=== PATIENT | male | born 1940 | race Two or more races ===

== ENCOUNTER 2019-03-10 15:47 | Inpatient (IN) | payer OTHER ==
[~2019-03-10] VITALS: Ht 172.7 cm; Wt 74.9 kg
--- NOTE | 2019-03-10 15:47 | NUR ---
ED Nurse Note: Patient brought into ED from home RA 26, per family, patient has been altered since this morning around 0800. BS 26 on scene, D10 250ml was given en route, upon arrival patient's BS 157. per family, patient did not eat or take medication since yesterday. granddaughter at bedside. patient immediately placed on a potline monitor, on a hospital gown.
--- NOTE | 2019-03-10 15:55 | Emergency Room Report ---
History of Present Illness General Chief Complaint: Altered Mental Status Source: Patient, Family Member, EMS Present Illness HPI Patient was brought in by paramedics family had Appreciated that the patient was acting weaker than usual and more lethargic since approximately 8:00 this morning Upon arrival of the paramedics patient's glucose level is found to be at 26 and patient was given dextrose in the field and has responded to become more oriented Family denies any reports of chest pain or vomiting denies any diarrhea patient was reported not to be taking his medications also had decreased oral intake Allergies: Coded Allergies: No Known Allergies (Unverified , 03/10/19) Patient History Limited by: medical condition Reviewed Nursing Documentation: PMH: Agreed; PSxH: Agreed Nursing Documentation-PMH Hx Cardiac Problems: Yes Hx Hypertension: Yes Hx Diabetes: Yes Review of Systems All Other Systems: negative except mentioned in HPI Physical Exam Vital Signs Date Time Temp Pulse Resp B/P (MAP) Pulse Ox O2 Delivery O2 Flow Rate FiO2 03/10/19 15:30 98.6 78 16 175/119 (137) 96 Room Air Sp02 EP Interpretation: reviewed, normal General Appearance: other - Sluggish to respond Head: normocephalic, atraumatic Eyes: bilateral eye PERRL, bilateral eye EOMI ENT: dry mucus membranes Neck: supple Respiratory: no retraction, crackles - Bilaterally Cardiovascular #1: regular rate, rhythm Gastrointestinal: non tender, soft Musculoskeletal: other - No obvious focal deficit Neurologic: other - Patient is awake makes eye contact is verbal with family follows minimal commands Skin: no rash Lymphatic: no adenopathy Procedures Critical Care Time Critical Care Time 70 minutes for multiple re-evaluations initial critical presentation continued encephalopathy and multiple neurological exams not including any procedural time Medical Decision Making Diagnostic Impression: Primary Impression: Acute CHF Additional Impressions: Elevated troponin Encephalopathy Hypoglycemia ER Course Patient is a fairly complex patient with multiple differential to consideration including but not limited to cardiac cardiopulmonary and vascular emergencies Patient has other differential such as neurological neurosurgical, infectious process also entertained Patient CT head does not show any acute process last known well was approximately 8:00 this morning This is well over 6 hours From time of presentation Patient's glucose level was initially very low it has been slowly elevating with dextrose injections Patient's x-ray is also concerning for pulmonary congestion BNP and troponin are elevated EKG does not show ST elevation This is repeated on 2 different occasions Patient was placed on BiPAP And is in critical condition patient does become more responsive with further physical stimuli And at this time is admitted to higher level of care Labs Test 03/10/19 16:12 03/10/19 17:05 03/10/19 17:15 03/10/19 18:45 White Blood Count 6.5 K/UL (4.8-10.8) Red Blood Count 4.85 M/UL (4.70-6.10) Hemoglobin 12.8 G/DL (14.2-18.0) Hematocrit 38.9 % (42.0-52.0) Mean Corpuscular Volume 80 FL (80-99) Mean Corpuscular Hemoglobin 26.3 PG (27.0-31.0) Mean Corpuscular Hemoglobin Concent 32.8 G/DL (32.0-36.0) Red Cell Distribution Width 13.1 % (11.6-14.8) Platelet Count 200 K/UL (150-450) Mean Platelet Volume 8.0 FL (6.5-10.1) Neutrophils (%) (Auto) 80.5 % (45.0-75.0) Lymphocytes (%) (Auto) 12.8 % (20.0-45.0) Monocytes (%) (Auto) 5.9 % (1.0-10.0) Eosinophils (%) (Auto) 0.0 % (0.0-3.0) Basophils (%) (Auto) 0.8 % (0.0-2.0) Sodium Level 139 MMOL/L (136-145) Potassium Level 5.5 MMOL/L (3.5-5.1) Chloride Level 109 MMOL/L (98-107) Carbon Dioxide Level 20 MMOL/L (21-32) Anion Gap 10 mmol/L (5-15) Blood Urea Nitrogen 36 mg/dL (7-18) Creatinine 1.2 MG/DL (0.55-1.30) Estimat Glomerular Filtration Rate mL/min (>60) Glucose Level 54 MG/DL (74-106) Lactic Acid Level 1.20 mmol/L (0.4-2.0) Calcium Level 8.6 MG/DL (8.5-10.1) Phosphorus Level 5.3 MG/DL (2.5-4.9) Magnesium Level 2.1 MG/DL (1.8-2.4) Total Bilirubin 1.0 MG/DL (0.2-1.0) Aspartate Amino Transf (AST/SGOT) 35 U/L (15-37) Alanine Aminotransferase (ALT/SGPT) 24 U/L (12-78) Alkaline Phosphatase 133 U/L (46-116) Total Creatine Kinase 97 U/L (26-308) Creatine Kinase MB 4.0 NG/ML (0.0-3.6) Creatine Kinase MB Relative Index 4.1 Troponin I 0.257 ng/mL (0.000-0.056) Pro-B-Type Natriuretic Peptide 7769 pg/mL (0-125) Total Protein 6.7 G/DL (6.4-8.2) Albumin 2.7 G/DL (3.4-5.0) Globulin 4.0 g/dL Albumin/Globulin Ratio 0.7 (1.0-2.7) Lipase 42 U/L (73-393) Serum Alcohol 1 mg/dL Prothrombin Time 12.6 SEC (9.30-11.50) Prothromb Time International Ratio 1.2 (0.9-1.1) Activated Partial Thromboplast Time 31 SEC (23-33) Urine Color Yellow Urine Appearance Clear Urine pH 5 (4.5-8.0) Urine Specific [place] 1.015 (1.005-1.035) Urine Protein 2+ (NEGATIVE) Urine Glucose (UA) Negative (NEGATIVE) Urine Ketones Negative (NEGATIVE) Urine Blood 2+ (NEGATIVE) Urine Nitrite Negative (NEGATIVE) Urine Bilirubin Negative (NEGATIVE) Urine Urobilinogen Normal MG/DL (0.0-1.0) Urine Leukocyte Esterase Negative (NEGATIVE) Urine RBC 2-4 /HPF (0 - 0) Urine WBC 0-2 /HPF (0 - 0) Urine Squamous Epithelial Cells None /LPF (NONE/OCC) Urine Amorphous Sediment Few /LPF (NONE) Urine Bacteria Few /HPF (NONE) Ammonia 13 umol/L (11-32) Arterial Blood pH 7.315 (7.350-7.450) Arterial Blood Partial Pressure CO2 37.4 mmHg (35.0-45.0) Arterial Blood Partial Pressure O2 49.4 mmHg (75.0-100.0) Arterial Blood HCO3 18.6 mmol/L (22.0-26.0) Arterial Blood Oxygen Saturation 78.8 % (95-100) Arterial Blood Base Excess -6.9 (-2-2) Brady Test Positive Test 03/10/19 19:20 03/10/19 20:40 Troponin I 0.214 ng/mL (0.000-0.056) Arterial Blood pH 7.337 (7.350-7.450) Arterial Blood Partial Pressure CO2 37.5 mmHg (35.0-45.0) Arterial Blood Partial Pressure O2 53.0 mmHg (75.0-100.0) Arterial Blood HCO3 19.6 mmol/L (22.0-26.0) Arterial Blood Oxygen Saturation 83.0 % (95-100) Arterial Blood Base Excess -5.6 (-2-2) Brady Test Positive EKG Diagnostic Results Rate: normal Rhythm: other ST Segments: other - Nonspecific ST changes interventricular block, Rhythm Strip Diag. Results EP Interpretation: yes Rate: 66 Rhythm: NSR, no PVC's, no ectopy Chest X-Ray Diagnostic Results Chest X-Ray Diagnostic Results : Chest X-Ray Ordered: Yes # of Views/Limited/Complete: 1 View Indication: Shortness of Breath EP Interpretation: Yes Interpretation: no pneumothorax, other - Cardiomegaly, pulmonary congestion bilateral effusions Impression: Other - CHF bilateral effusions Electronically Signed by: Ricardo Lara DO CT/MRI/US Diagnostic Results CT/MRI/US Diagnostic Results : Impression CT head: No acute finding, remote lacunar infarct Last Vital Signs Date Time Temp Pulse Resp B/P (MAP) Pulse Ox O2 Delivery O2 Flow Rate FiO2 03/10/19 15:30 98.6 78 16 175/119 (137) 96 Room Air Status: unchanged Disposition: ADMITTED INPATIENT Condition: Critical - Patient was admitted in poor prognosis Ricardo Lara DO Mar 10, 2019 15:56
[2019-03-10 16:38] LABS: BASOPHILS % (AUTO) 0.8 % (0.0-2.0); HEMATOCRIT 38.9 % (42.0-52.0); HEMOGLOBIN 12.8 G/DL (14.2-18.0); LYMPHOCYTES % (AUTO) 12.8 % (20.0-45.0); MEAN CORPUSCULAR VOLUME 80 FL (80-99); MONOCYTES % (AUTO) 5.9 % (1.0-10.0); NEUTROPHILS % (AUTO) 80.5 % (45.0-75.0); PLATELET COUNT 200 K/UL (150-450); RED BLOOD COUNT 4.85 M/UL (4.70-6.10); RED CELL DISTRIBUTION WIDTH 13.1 % (11.6-14.8); WHITE BLOOD COUNT 6.5 K/UL (4.8-10.8)
[2019-03-10 16:51] LABS: ANION GAP 10 mmol/L (5-15); BLOOD UREA NITROGEN 36 mg/dL (7-18); CALCIUM 8.6 MG/DL (8.5-10.1); CARBON DIOXIDE 20 MMOL/L (21-32); CHLORIDE 109 MMOL/L (98-107); CREATININE 1.2 MG/DL (0.55-1.30); POTASSIUM 5.5 MMOL/L (3.5-5.1); SODIUM 139 MMOL/L (136-145)
[2019-03-10 16:58] VITALS: BP 114/66
[2019-03-10 17:05] LABS: ALANINE AMINOTRANSFERASE 24 U/L (12-78); ALBUMIN 2.7 G/DL (3.4-5.0); ALBUMIN/GLOBULIN RATIO 0.7 (1.0-2.7); ALKALINE PHOSPHATASE 133 U/L (46-116); ASPARTATE AMINO TRANSFERASE 35 U/L (15-37); CREATINE KINASE 97 U/L (26-308); PHOSPHORUS 5.3 MG/DL (2.5-4.9)
--- NOTE | 2019-03-10 17:20 | NUR ---
ED Nurse Note: ua and additional labs sent to lab.
[2019-03-10 17:39] LABS: APPEARANCE,URINE CLEAR; BILIRUBIN, URINE NEGATIVE (NEGATIVE); GLUCOSE, URINE (UA) NEGATIVE (NEGATIVE); KETONES,URINE NEGATIVE (NEGATIVE); LEUKOCYTE ESTERASE ,URINE NEGATIVE (NEGATIVE); NITRITE,URINE NEGATIVE (NEGATIVE); PH,URINE 5 (4.5-8.0); PROTEIN,URINE 2+ (NEGATIVE); UROBILINOGEN,URINE NORMAL MG/DL (0.0-1.0)
[2019-03-10 17:49] LABS: INR 1.2 (0.9-1.1)
--- NOTE | 2019-03-10 17:49 | NUR ---
ED Nurse Note: patient taken to CT scan.
[2019-03-10 17:57] LABS: COLOR,URINE YELLOW
--- NOTE | 2019-03-10 18:59 | NUR ---
HAND-OFF: Report given to PAVAN GALLEGO.
--- NOTE | 2019-03-10 19:00 | NUR ---
ED Nurse Note: Hand-off report given by JULIÁN Coombs. Pt calm and sleeping. NAD, VSS. Will continue to monitor patient.
[2019-03-10 19:05] VITALS: BP 122/72
[2019-03-10] MEDS ORDERED: D5 1/2NS 1,000 ML IV ONE (19:15)
--- NOTE | 2019-03-10 19:25 | NUR ---
ED Nurse Note: Blood drawn and sent to lab for repeat troponin per ERMD.
--- NOTE | 2019-03-10 19:30 | NUR ---
ED Nurse Note: RT at bedside with Bipap per ERMD order. Patient tolerated Bipap without any complications. Will continue to monitor.
[2019-03-10 20:05] VITALS: BP 132/82
--- NOTE | 2019-03-10 20:28 | NUR ---
Called RT for ABG request per ERMD order.
[2019-03-10] MEDS ORDERED: Sodium Bicarbonate 50ml Carp IV ONE (20:30)
--- NOTE | 2019-03-10 20:35 | NUR ---
ED Nurse Note: Inserted tafoya per ERMD order. No complications noted. Will continue to monitor patient.
--- NOTE | 2019-03-10 20:38 | NUR ---
ED Nurse Note: RT at bedside for ABG blood draw.
--- NOTE | 2019-03-10 21:15 | NUR ---
ED Nurse Note: Report given to Raul GALLEGO.
--- NOTE | 2019-03-10 21:20 | NUR ---
ED Nurse Note: D50% 25 grams/50 mL IVP given via vial due to shortage of syringe. ERMD notified to change to vial administration via EMAR.
[2019-03-10 21:37] VITALS: BP 147/91
--- NOTE | 2019-03-10 21:45 | NUR ---
NURSE NOTES: Received report from JULIÁN Pfeiffer- pt. transferred from ER- pt. in bed awake- A/O x's1- confused, night monitor placed, VS stable- full body assessment done- skin intact, pt. oriented to room and pt. teaching done, pt. appears to be sating well on 2L NC at 96- no distress noted, bed bath given and comfort measures provided, David intact and draining to gravity, Rt. AC 20G IV intact and patent running D5 1/2 NS at 100cc/hr, bed in lowest position and call light within easy reach, bed alarm on, side rails up x's3 and safety brakes engaged, pt. appears to be resting comfortably, safety measures continued, will continue with plan of care. Will contact primary for admission orders, BS taken by la 111. Addendum: 03/10/19 at 2212 by SUMAN LAGUNAS RN RN pt. does not remember home medications he is taking- will f/u with family. Addendum: 03/11/19 at 0004 by SUMAN LAGUNAS RN RN pt. appears to have a pacemaker to left side upper chest maker- pacing V- Paced.
--- NOTE | 2019-03-10 21:47 | NUR ---
TRANSFER TO FLOOR: Patient transferred to [facility] as ordered. Report given to Raul GALLEGO. Belongings and medications given to Raul GALLEGO.
[2019-03-10 22:00] VITALS: BP 117/76
[2019-03-10] MEDS: NovoLOG Insulin Flexpen SUBQ SCH (22:00)
--- NOTE | 2019-03-10 22:20 | NUR ---
NURSE NOTES: called DR. Winters for admission orders for new admission- per doctor he will call me back with orders.
[2019-03-10] MEDS ORDERED: Morphine Sulfate 2mg/ml Inj(IV/IM USE ONLY) IVP PRN (22:30)
[2019-03-10] MEDS ORDERED: Nitroglycerin Subl 0.4mg tab SL PRN (22:30)
[2019-03-10] MEDS ORDERED: Ketorolac 30mg Inj IV PRN (22:30)
[2019-03-10] MEDS ORDERED: D5 1/2NS 1,000 ML IV SCH ×2 (22:30)
--- NOTE | 2019-03-10 22:45 | NUR ---
NURSE NOTES: Spoke with Jessica regarding Hypoglycemia protocol- per doctor Singh to do Accu check for first 24 hours q4hrs for medium sliding scale and then AC /HS - per Jessica she will correct order. Also notified her that D5 1/2NS was ordered by Singh at 75cc/hr- and to continue that order and d/c the D5 1/2NS at 50cc/hr by DR. Jeffries- per Jessica she will fix order.
[2019-03-11] VITALS (7 sets, daily range): BP systolic 103–137; BP diastolic 55–81
--- NOTE | 2019-03-11 01:09 | Diagnostic Imaging Report ---
Indications: Altered mental status Technique: Spiral acquisitions obtained through the brain. Angled axial and coronal 5 x 5 mm slices were reconstructed. Total dose length product 1304 mGycm. CTDI vol(s) 6 mGy. Dose reduction achieved using automated exposure control Comparison: None. Findings: There is age-related enlargement of the ventricles and extra axial CSF spaces. No acute intracranial hemorrhage or edema, mass effect, nor midline shift. There is mild periventricular deep white matter low-attenuation consistent with chronic ischemic change. 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 Visualized orbits and sinuses are unremarkable. The mastoids are clear. Impression: Chronic and age-related changes. Negative for acute intracranial bleed or mass effect Old left basal ganglia lacunar infarcts This agrees with the preliminary interpretation provided overnight by [facility] teleradiology service. The CT scanner at [facility] is accredited by the [employer] and the scans are performed using protocols designed to limit radiation exposure to as low as reasonably achievable to attain images of sufficient resolution adequate for diagnostic evaluation.
[2019-03-11] MEDS: NovoLOG Insulin Flexpen SUBQ SCH ×6 (02:00→20:21)
--- NOTE | 2019-03-11 02:23 | NUR ---
NURSE NOTES: patents blood sugar 37- D50 given - will re-check in 15 minutes and notify MD. pt. remains stable - will continue to monitor pt.
--- NOTE | 2019-03-11 02:53 | NUR ---
NURSE NOTES: re-checked blood sugar now 136- pt. remains stable will notify doctor.
--- NOTE | 2019-03-11 03:02 | NUR ---
NURSE NOTES: left message for DR. Winters-regarding blood sugar results - awaiting for call back form doctor- pt. remains stable.
--- NOTE | 2019-03-11 05:15 | NUR ---
NURSE NOTES: pts. blood sugar critically low - D50 given and will notify doctor- pt. remains stable.
--- NOTE | 2019-03-11 06:19 | NUR ---
NURSE NOTES: left message for DR. Winters- regarding blood sugar reading critically low at 0500 today - covered with D50- now 199- awaiting for call back from doctor- pt. remains stable. Will continue to monitor pt. and with plan of care.
--- NOTE | 2019-03-11 06:25 | NUR ---
NURSE NOTES: per. Dr. Winters to order D10W at 75cc/hr, NC @3L, Joann riveraay to keep, Chest X'ray, and ABGS this am- per doctor no BIPAP at this time.
--- NOTE | 2019-03-11 07:00 | NUR ---
NURSE NOTES: received patient report from sindy ory. patient is on bed asleep. on Nc 3LI. not in acute distress. bed is low and locked for safety. will follow plan of care.
--- NOTE | 2019-03-11 07:14 | NUR ---
HAND-OFF: Report given to JULIÁN Cummins- pt. remains stable and no signs of distress noted- aware to f/u on nursing orders regarding accu check q4hrs and regarding fluids to be changed to D10W this am. Addendum: 03/11/19 at 0718 by SUMAN LAGUNAS RN RN Nurse aware to f/u with am labs as they are still pending.
[2019-03-11 07:22] LABS: BASOPHILS % (AUTO) 0.8 % (0.0-2.0); EOSINOPHILS % (AUTO) 0.4 % (0.0-3.0); HEMATOCRIT 34.7 % (42.0-52.0); HEMOGLOBIN 11.1 G/DL (14.2-18.0); LYMPHOCYTES % (AUTO) 13.4 % (20.0-45.0); MEAN CORPUSCULAR VOLUME 82 FL (80-99); MONOCYTES % (AUTO) 11.7 % (1.0-10.0); NEUTROPHILS % (AUTO) 73.7 % (45.0-75.0); PLATELET COUNT 198 K/UL (150-450); RED BLOOD COUNT 4.25 M/UL (4.70-6.10); RED CELL DISTRIBUTION WIDTH 14.5 % (11.6-14.8); WHITE BLOOD COUNT 7.1 K/UL (4.8-10.8)
[2019-03-11 07:33] LABS: ALANINE AMINOTRANSFERASE 26 U/L (12-78); ALBUMIN 2.3 G/DL (3.4-5.0); ALBUMIN/GLOBULIN RATIO 0.7 (1.0-2.7); ALKALINE PHOSPHATASE 111 U/L (46-116); ANION GAP 9 mmol/L (5-15); ASPARTATE AMINO TRANSFERASE 21 U/L (15-37); BILIRUBIN,TOTAL 0.8 MG/DL (0.2-1.0); BLOOD UREA NITROGEN 31 mg/dL (7-18); CARBON DIOXIDE 23 MMOL/L (21-32); CHLORIDE 111 MMOL/L (98-107); CHOLESTEROL 82 MG/DL (< 200); CREATININE 1.3 MG/DL (0.55-1.30); HDL CHOLESTEROL 35 MG/DL (40-60); SODIUM 143 MMOL/L (136-145); TRIGLYCERIDES 30 MG/DL (30-150)
[2019-03-11 07:47] LABS: PHOSPHORUS 4.6 MG/DL (2.5-4.9)
--- NOTE | 2019-03-11 08:54 | NUR ---
RADIOLOGY DEPT., POST ENTRY, CHEST X-RAY PERFORMED ON ADMIT (UNREAD AT TIME) NOW READ BY RADIOLOGISTSTACEY
[2019-03-11] MEDS: Dextrose 10% 1,000 ML IV SCH ×2 (09:30→20:22)
[2019-03-11] MEDS: Aspirin Baby 81mg ORAL SCH (09:31)
[2019-03-11] MEDS: Heparin 5000 units/ml inj SUBQ SCH ×2 (09:32→20:23)
--- NOTE | 2019-03-11 10:54 | Diagnostic Imaging Report ---
Indication: Cough, chest pain Technique: One view of the chest Comparison: none Findings: The heart is enlarged. There is bilateral interstitial and airspace edema. There may be a small left pleural effusion There is a left chest biventricular AICD. Impression: Cardiomegaly with bilateral interstitial and airspace edema, possible small left pleural effusion
--- NOTE | 2019-03-11 11:15 | NUR ---
*-* INSURANCE *-* ALL AVAILABLE CLINICALS HAVE BEEN FAXED TO: JASMIN GONZALEZ [address] [address] AUTH#[id number] NO REFRIGERATION SYSTEM INSTALLER AT THIS TIME FAX ALL CLINICALS TO [phone]
--- NOTE | 2019-03-11 11:30 | Consultation ---
History of Present Illness General Date patient seen: Mar 11, 2019 Chief Complaint: Altered Mental Status Present Illness HPI 78 year old male with hx of DM, on insulin, pacemaker ( first admission) , CHF brought in by paramedics with CC of altered level of consciousness. He has not been taking his meds for a few days and not eating as well. His BS was 26 in the field. His mental status improved with IV sugar. He was found to be in CH and had positive troponin, therefore he was admitted to [facility] last night. Allergies: Coded Allergies: No Known Allergies (Unverified , 03/10/19) Patient History Healthcare decision maker N Resuscitation status Full Code Advanced Directive on File No Past Medical/Surgical History Past Medical/Surgical History: (1) Pacemaker (2) Diabetes mellitus Review of Systems All Other Systems: negative except mentioned in HPI Physical Exam General Appearance: WD/WN Lines, tubes and drains: peripheral HEENT: normocephalic, atraumatic Neck: non-tender, normal alignment Respiratory/Chest: rhonchi - left, rhonchi - right Breasts: no masses Cardiovascular/Chest: normal peripheral pulses Abdomen: normal bowel sounds Genitourinary/Rectal: normal genital exam Extremities: normal range of motion, trace edema Skin Exam: normal pigmentation Last 24 Hour Vital Signs Date Time Temp Pulse Resp B/P (MAP) Pulse Ox O2 Delivery O2 Flow Rate FiO2 03/11/19 08:20 72 03/11/19 08:00 Room Air 3.0 03/11/19 08:00 3.0 03/11/19 08:00 98.0 75 22 120/69 (86) 98 03/11/19 07:00 95 Nasal Cannula 2.0 28 03/11/19 04:00 Bi-pap 03/11/19 04:00 98.1 71 18 118/72 (87) 98 03/11/19 03:36 64 03/11/19 02:00 3.0 03/11/19 00:49 81 20 100 Facial 100 03/11/19 00:00 100 03/11/19 00:00 97.9 74 18 121/73 (89) 97 03/11/19 00:00 Bi-pap 03/10/19 23:49 63 03/10/19 22:36 87 24 100 Facial 100 03/10/19 22:20 64 03/10/19 22:00 2.0 03/10/19 22:00 Room Air 2.0 03/10/19 22:00 97.9 76 18 117/76 (90) 96 03/10/19 21:57 97.3 63 147/90 100 Bi-pap 03/10/19 21:37 97.3 63 147/91 100 Bi-pap 100 80 03/10/19 21:05 60 30 100 Facial 100 03/10/19 20:05 97.6 80 132/82 99 Bi-pap 50 73 03/10/19 19:14 60 30 99 Facial 50 03/10/19 19:05 98.5 80 18 122/72 95 Room Air 03/10/19 16:59 80 17 Room Air 03/10/19 16:58 98.6 80 17 114/66 94 Room Air 03/10/19 15:30 98.6 78 16 175/119 (137) 96 Room Air Intake and Output 03/10/19 03/11/19 19:00 07:00 Intake Total 523 ml Output Total 200 ml Balance 323 ml Intake IV Total 523 ml Output Urine Total 200 ml # Voids 1 Laboratory Tests Test 03/10/19 16:12 03/10/19 17:05 03/10/19 17:15 03/10/19 18:45 White Blood Count 6.5 K/UL (4.8-10.8) Red Blood Count 4.85 M/UL (4.70-6.10) Hemoglobin 12.8 G/DL (14.2-18.0) L Hematocrit 38.9 % (42.0-52.0) L Mean Corpuscular Volume 80 FL (80-99) Mean Corpuscular Hemoglobin 26.3 PG (27.0-31.0) L Mean Corpuscular Hemoglobin Concent 32.8 G/DL (32.0-36.0) Red Cell Distribution Width 13.1 % (11.6-14.8) Platelet Count 200 K/UL (150-450) Mean Platelet Volume 8.0 FL (6.5-10.1) Neutrophils (%) (Auto) 80.5 % (45.0-75.0) H Lymphocytes (%) (Auto) 12.8 % (20.0-45.0) L Monocytes (%) (Auto) 5.9 % (1.0-10.0) Eosinophils (%) (Auto) 0.0 % (0.0-3.0) Basophils (%) (Auto) 0.8 % (0.0-2.0) Sodium Level 139 MMOL/L (136-145) Potassium Level 5.5 MMOL/L (3.5-5.1) H Chloride Level 109 MMOL/L (98-107) H Carbon Dioxide Level 20 MMOL/L (21-32) L Anion Gap 10 mmol/L (5-15) Blood Urea Nitrogen 36 mg/dL (7-18) H Creatinine 1.2 MG/DL (0.55-1.30) Estimat Glomerular Filtration Rate mL/min (>60) Glucose Level 54 MG/DL (74-106) L Lactic Acid Level 1.20 mmol/L (0.4-2.0) Calcium Level 8.6 MG/DL (8.5-10.1) Phosphorus Level 5.3 MG/DL (2.5-4.9) H Magnesium Level 2.1 MG/DL (1.8-2.4) Total Bilirubin 1.0 MG/DL (0.2-1.0) Aspartate Amino Transf (AST/SGOT) 35 U/L (15-37) Alanine Aminotransferase (ALT/SGPT) 24 U/L (12-78) Alkaline Phosphatase 133 U/L (46-116) H Total Creatine Kinase 97 U/L (26-308) Creatine Kinase MB 4.0 NG/ML (0.0-3.6) H Creatine Kinase MB Relative Index 4.1 Troponin I 0.257 ng/mL (0.000-0.056) Pro-B-Type Natriuretic Peptide 7769 pg/mL (0-125) H Total Protein 6.7 G/DL (6.4-8.2) Albumin 2.7 G/DL (3.4-5.0) L Globulin 4.0 g/dL Albumin/Globulin Ratio 0.7 (1.0-2.7) L Lipase 42 U/L (73-393) L Serum Alcohol 1 mg/dL Prothrombin Time 12.6 SEC (9.30-11.50) H Prothromb Time International Ratio 1.2 (0.9-1.1) H Activated Partial Thromboplast Time 31 SEC (23-33) Urine Color Yellow Urine Appearance Clear Urine pH 5 (4.5-8.0) Urine Specific Wallace 1.015 (1.005-1.035) Urine Protein 2+ (NEGATIVE) H Urine Glucose (UA) Negative (NEGATIVE) Urine Ketones Negative (NEGATIVE) Urine Blood 2+ (NEGATIVE) H Urine Nitrite Negative (NEGATIVE) Urine Bilirubin Negative (NEGATIVE) Urine Urobilinogen Normal MG/DL (0.0-1.0) Urine Leukocyte Esterase Negative (NEGATIVE) Urine RBC 2-4 /HPF (0 - 0) H Urine WBC 0-2 /HPF (0 - 0) Urine Squamous Epithelial Cells None /LPF (NONE/OCC) Urine Amorphous Sediment Few /LPF (NONE) H Urine Bacteria Few /HPF (NONE) Ammonia 13 umol/L (11-32) Arterial Blood pH 7.315 (7.350-7.450) Arterial Blood Partial Pressure CO2 37.4 mmHg (35.0-45.0) Arterial Blood Partial Pressure O2 49.4 mmHg (75.0-100.0) Arterial Blood HCO3 18.6 mmol/L (22.0-26.0) L Arterial Blood Oxygen Saturation 78.8 % (95-100) *L Arterial Blood Base Excess -6.9 (-2-2) L Brady Test Positive Test 03/10/19 19:20 03/10/19 20:40 03/11/19 03:45 Troponin I 0.214 ng/mL (0.000-0.056) 0.209 ng/mL (0.000-0.056) Arterial Blood pH 7.337 (7.350-7.450) Arterial Blood Partial Pressure CO2 37.5 mmHg (35.0-45.0) Arterial Blood Partial Pressure O2 53.0 mmHg (75.0-100.0) L Arterial Blood HCO3 19.6 mmol/L (22.0-26.0) L Arterial Blood Oxygen Saturation 83.0 % (95-100) *L Arterial Blood Base Excess -5.6 (-2-2) L Brady Test Positive White Blood Count 7.1 K/UL (4.8-10.8) Red Blood Count 4.25 M/UL (4.70-6.10) L Hemoglobin 11.1 G/DL (14.2-18.0) L Hematocrit 34.7 % (42.0-52.0) L Mean Corpuscular Volume 82 FL (80-99) Mean Corpuscular Hemoglobin 26.1 PG (27.0-31.0) L Mean Corpuscular Hemoglobin Concent 31.9 G/DL (32.0-36.0) L Red Cell Distribution Width 14.5 % (11.6-14.8) Platelet Count 198 K/UL (150-450) Mean Platelet Volume 8.8 FL (6.5-10.1) Neutrophils (%) (Auto) 73.7 % (45.0-75.0) Lymphocytes (%) (Auto) 13.4 % (20.0-45.0) L Monocytes (%) (Auto) 11.7 % (1.0-10.0) H Eosinophils (%) (Auto) 0.4 % (0.0-3.0) Basophils (%) (Auto) 0.8 % (0.0-2.0) Sodium Level 143 MMOL/L (136-145) Potassium Level 4.0 MMOL/L (3.5-5.1) Chloride Level 111 MMOL/L (98-107) H Carbon Dioxide Level 23 MMOL/L (21-32) Anion Gap 9 mmol/L (5-15) Blood Urea Nitrogen 31 mg/dL (7-18) H Creatinine 1.3 MG/DL (0.55-1.30) Estimat Glomerular Filtration Rate mL/min (>60) Glucose Level 81 MG/DL (74-106) Hemoglobin A1c 6.4 % (4.3-6.0) H Calcium Level 8.0 MG/DL (8.5-10.1) L Phosphorus Level 4.6 MG/DL (2.5-4.9) Magnesium Level 1.9 MG/DL (1.8-2.4) Total Bilirubin 0.8 MG/DL (0.2-1.0) Aspartate Amino Transf (AST/SGOT) 21 U/L (15-37) Alanine Aminotransferase (ALT/SGPT) 26 U/L (12-78) Alkaline Phosphatase 111 U/L (46-116) Total Protein 5.5 G/DL (6.4-8.2) L Albumin 2.3 G/DL (3.4-5.0) L Globulin 3.2 g/dL Albumin/Globulin Ratio 0.7 (1.0-2.7) L Triglycerides Level 30 MG/DL (30-150) Cholesterol Level 82 MG/DL (< 200) LDL Cholesterol 37 mg/dL (<100) HDL Cholesterol 35 MG/DL (40-60) L Cholesterol/HDL Ratio 2.3 (3.3-4.4) L Thyroid Stimulating Hormone (TSH) 0.755 uiU/mL (0.358-3.740) Height (Feet): 5 Height (Inches): 8.00 Weight (Pounds): 200 Medications Current Medications Medications (Trade) Dose Ordered Sig/Raymond Route PRN Reason Start Time Stop Time Status Last Admin Dose Admin Acetaminophen (Tylenol) 650 mg Q4H PRN ORAL fever 03/10/19 22:30 04/09/19 22:29 Albuterol/ Ipratropium (Albuterol/ Ipratropium) 3 ml EVERY 4 HOURS PRN HHN Shortness of Breath 03/10/19 22:30 03/15/19 22:29 Aspirin (ASA) 81 mg DAILY ORAL 03/11/19 09:00 04/10/19 08:59 03/11/19 09:31 Clonidine HCl (Catapres Tab) 0.1 mg EVERY 4 HOURS PRN ORAL sbp more than 160 03/10/19 22:30 04/09/19 22:29 Dextrose 1,000 ml @ 75 mls/hr [id number] IV 03/11/19 07:30 04/10/19 07:29 03/11/19 09:30 Dextrose (Dextrose 50%) 25 ml Q30M PRN IV Hypoglycemia 03/10/19 22:30 04/09/19 22:29 Dextrose (Dextrose 50%) 50 ml Q30M PRN IV Hypoglycemia 03/10/19 22:30 04/09/19 22:29 03/11/19 05:05 Heparin Sodium (Porcine) (Heparin 5000 units/ml) 5,000 units EVERY 12 HOURS SUBQ 03/11/19 09:00 04/10/19 08:59 03/11/19 09:32 Insulin Aspart (NovoLOG) BEFORE MEALS AND HS SUBQ 03/11/19 21:00 04/10/19 20:59 Insulin Aspart (NovoLOG) Q4H SUBQ 03/10/19 22:00 03/11/19 18:01 Ketorolac Tromethamine (Toradol 30mg) 30 mg EVERY 6 HOURS PRN IV moderate pain 4-6 03/10/19 22:30 03/15/19 22:29 Morphine Sulfate (Morphine Sulfate) 2 mg EVERY 4 HOURS PRN IVP severe pain 7-10 03/10/19 22:30 03/17/19 22:29 Nitroglycerin (Ntg) 0.4 mg Q5M X 3 DOSES PRN SL Prn Chest Pain 03/10/19 22:30 04/09/19 22:29 Ondansetron HCl (Zofran) 4 mg Q6H PRN IVP Nausea & Vomiting 03/10/19 22:30 04/09/19 22:29 Polyethylene Glycol (Miralax) 17 gm HSPRN PRN ORAL Constipation 03/10/19 22:30 04/09/19 22:29 Temazepam (Restoril) 15 mg HSPRN PRN ORAL Insomnia 03/10/19 22:30 03/17/19 22:29 Assessment/Plan Problem List: (1) Hypoglycemia ICD Codes: E16.2 - Hypoglycemia, unspecified SNOMED: 488017713 (2) Acute CHF ICD Codes: I50.9 - Heart failure, unspecified SNOMED: 73171165, 183763518, 479369938 (3) Acute metabolic encephalopathy ICD Codes: G93.41 - Metabolic encephalopathy SNOMED: 14955615, 301633930 (4) Diabetes mellitus ICD Codes: E11.9 - Type 2 diabetes mellitus without complications SNOMED: 76035491 (5) Pacemaker ICD Codes: Z95.0 - Presence of cardiac pacemaker SNOMED: 271170794 Assessment/Plan: D10 for now sliding scale, with Novolog avoid long acting oral diabetic agents Echo to assess EF low dose of Dilaudid venous doppler dvt prophylaxis cardiology to see. Marc Jeffries MD Mar 11, 2019 11:30
--- NOTE | 2019-03-11 14:45 | History & Physical ---
History and Physical History & Physicial Codey Winters MD Mar 11, 2019 14:45
--- NOTE | 2019-03-11 14:49 | NUR ---
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 98.6 HR 80 RR 17 B/P 114/66 PH 7.31 PCO2 37.5 PO2 49.4 HCO3 18.6 O2 SAT 78.8 BIPAP 12/5 FIO2 50% K 5.5 BUN 36 TROP 0.257 BNP 7769 CXR=Cardiomegaly with bilateral interstitial and airspace edema, possible SMALL LEFT PLEURAL EFFUSION IS: IV D50 X 3 AMPS IV BOLUS NS IVF D5NS@100ML/HR ADMITTED TO STEP DOWN@ 2156 STEP DOWN STATUS DCP RETURN HOME
--- NOTE | 2019-03-11 15:08 | Cardiology Report ---
APPROVED REPORT EXAM: Two-dimensional and M-mode echocardiogram with Doppler and color Doppler. INDICATION Atrial Fibrillation LV Function M-Mode DIMENSIONS IVSd1.3 (0.7-1.1cm)Left Atrium (MM)5.5 (1.6-4.0cm) LVDd5.3 (3.5-5.6cm)Aortic Root3.1 (2.0-3.7cm) PWd1.3 (0.7-1.1cm)Aortic Cusp Exc.1.8 (1.5-2.0cm) LVDs4.7 (2.5-4.0cm) PWs1.7 cm Technically difficult study due to poor acoustical windows. Normal left ventricular chamber size. Global LV hypokinesis with akinesisof posterior and lateral armenta. Left ventricular ejection fraction estimated to be 30-35 %. Increased E point-interventricular septal separation c/w left ventricular dysfunction. Mild left ventricular hypertrophy. No evidence of pericardial effusion. Moderate pleural effusion. Mild bi- atrial enlargement. Mild right ventricular enlargement. Focal aortic valve sclerosis with adequate cusp excursion. Thickened mitral valve leaflets with normal excursion. Mitral annulus and aortic root calcification. Pulmonic valve not well visualized. Normal tricuspid valve structure. IVC at 2.2cm with slight physiologic collapse. Pacemaker wire present in the right side chambers. Subcostal image not obtained due to pt's resistance. A color flow and spectral Doppler study was performed and revealed: Mild aortic regurgitation. Moderate mitral regurgitation. Mitral inflow velocities indicates possible pseudo normalization pattern implying moderately elevated left atrial pressure (Grade II). Mild tricuspid regurgitation. Tricuspid systolic velocities suggests peak right ventricular systolic pressure of 41 mmHg consistent with mild pulmonary hypertension. Mild pulmonic regurgitation present.
--- NOTE | 2019-03-11 19:16 | NUR ---
HAND-OFF: Report given to sindy roy.
--- NOTE | 2019-03-11 19:26 | NUR ---
NURSE NOTES: Received report from JULIÁN Cummins- pt. in bed awake- A/O x's1-2- confused, hall monitor on, pt. appears to be sating well on 3L NC at 97%- no distress noted, comfort measures provided, David intact and draining to gravity, Rt. AC 20G IV intact and patent, Lt. hand 18G running D10W at 75cc/hr- iv intact and patent, bed in lowest position and call light within easy reach, bed alarm on, side rails up x's3 and safety brakes engaged, pt. appears to be resting comfortably, safety measures continued, will continue with plan of care.
--- NOTE | 2019-03-11 21:55 | NUR ---
NURSE NOTES: re-checked, patients blood sugar as it was in 70's - now BS is 99- will continue to monitor pt. and with plan of care.
--- NOTE | 2019-03-11 22:00 | History and Physical Report ---
DATE OF ADMISSION: 03/10/2019 CHIEF COMPLAINT: Shortness of breath and altered mental status. HISTORY OF PRESENT ILLNESS: This is a 78-year-old gentleman with past medical history significant for hypertension, diabetes type 2, insulin dependent, sick sinus syndrome and status post pacemaker, and congestive heart failure was brought into the emergency room accompanied with the family member via paramedics after was noted to have the altered mental status. The patient has not been taking his medication for few days, not eating as well. His blood sugar in the field was found to be 26 and the patient was given some intravenous glucose and his mental status improved and was found to be in shortness of breath and mild elevation of troponin and subsequently was admitted to the [facility] for altered mental status most likely secondary to toxic metabolic encephalopathy as a result of the hypoglycemia as well as shortness of breath and BiPAP and mild elevation of troponin. PAST MEDICAL HISTORY/PAST SURGICAL HISTORY: As above. History of diabetes type 2, insulin dependent, congestive heart failure, sick sinus syndrome, status pacemaker, and hypertension. MEDICATIONS AT HOME: Please refer to medication reconciliation. ALLERGIES: No known drug allergies. SOCIAL HISTORY: Denies any smoking, alcohol, or drugs at this time. FAMILY HISTORY: Noncontributory. REVIEW OF SYSTEMS: Mostly as above. Denies any dysuria, frequency, and hematuria. Denies any hemoptysis or hematochezia. Complained about cough. Denies any loss of consciousness. Denies any fall or head trauma. Denies any bowel or urine incontinence. PHYSICAL EXAMINATION: VITAL SIGNS: On admission, temperature 98.6, pulse of 78, respirations 16, and blood pressure 175/119. GENERAL: The patient is awake, responsive, and sluggish. HEAD AND NECK: Pupils are reactive to light. Anicteric. NECK: Supple. No jugular venous distention. LUNGS: Good air entry. No wheeze or rales. Decreased air in the bases. HEART: S1, S2. Distant heart sounds. No murmur or gallops. ABDOMEN: Soft, nondistended, and nontender. Mildly obese. EXTREMITIES: No cyanosis or clubbing. Hyperpigmentation on the right lower extremity was noted and trace ankle edema. NEUROLOGIC: Cranial nerves II through XII are grossly intact. The patient is moving all the extremities spontaneously. Gait was not assessed due to the patient's status. RECTAL/GENITOURINARY: Refused and deferred. PSYCHIATRIC: Mood and affect is intact. LABORATORY DATA: On admission from the ER, WBC of 6.5, hemoglobin 12, hematocrit 38, and platelets is 200,000. The patient's sodium 139, potassium 5.5, chloride 109, bicarbonate 20, BUN 36, creatinine 1.2, and glucose of 54. Lactic acid is 1.2. Calcium is 8.9 and phosphorus 5.3. First troponin is 0.257. ProBNP of 7769. Lipase is 42. PT 12, INR 1.2, and PTT of 31. Serum alcohol level is 1. Urinalysis, +2 protein, +2 blood, 2 to 4 rbc's, negative leukocytes, and negative nitrite. The patient's CT of the head was done in the ER, chronic and age-related changes, negative for acute intracranial bleeding or mass effect, and old left basal ganglia lacunar infarction. Chest x-ray was noted to be cardiomegaly with bilateral interstitial as well as airspace edema, possible small left pleural effusion. ASSESSMENT: 1. Altered mental status, most likely secondary to toxic metabolic encephalopathy. 2. Diabetes type 2. 3. Congestive heart failure. 4. Hypertension. 5. Sick sinus syndrome status post pacemaker. 6. Obesity. PLAN: 1. Admit to [facility]. 2. We will continue on the D10 intravenous fluid. 3. Monitor blood glucose level closely. We will follow up with the 2D echo. 4. Resume home medication. 5. Duplex of lower extremity. 6. Discussed the case with Dr. Jeffries, Pulmonary Critical Care, as well as Cardiology consultation. 7. Code status, Full Code. Codey Winters M.D. DR: SANDEEP JOB#: [id number] CC:
--- NOTE | 2019-03-11 23:40 | NUR ---
NURSE NOTES: noted pt. restless in bed- using abdominal muscles for breathing- pt. appears to be having difficulty breathing- pulse ox at 96%- ABGS pending, VS stable, Blood sugar 83- will f/u with ABGs and continue to monitor pt.- pt. stating he is fine. Will continue to monitor.
--- NOTE | 2019-03-12 00:02 | NUR ---
NURSE NOTES: patients ABGs Within normal range- will continue to monitor pt. and with plan of care.
[2019-03-12 04:00] VITALS: BP 118/63
[2019-03-12] MEDS: NovoLOG Insulin Flexpen SUBQ SCH ×4 (05:46→21:00)
--- NOTE | 2019-03-12 05:47 | NUR ---
NURSE NOTES: patient did not receive insulin for 0630am- as patients blood sugar has been in low range most of the night but within normal limits. pt. remains stable-will continue to monitor pt. and with plan of care.
--- NOTE | 2019-03-12 06:53 | NUR ---
HAND-OFF: Report given to JULIÁN Cummins,pt.remains stable and no distress noted. Nurse aware to f/u on Am labs.
--- NOTE | 2019-03-12 06:54 | Pulmonology Progress Note ---
Assessment/Plan Problems: (1) Hypoglycemia (2) Acute CHF (3) Acute metabolic encephalopathy (4) Cardiac LV ejection fraction 30-35% (5) Pacemaker (6) Diabetes mellitus Assessment/Plan still confused and agitated at times Echo reviewed, started on Lasix, BP is borderline low to start Coreg and [facility] inhibitors awaiting cardio consult continue D10 add seroquel dvt prophylaxis Subjective ROS Limited/Unobtainable: No Constitutional: Reports: no symptoms HEENT: Repors: no symptoms Respiratory: Reports: no symptoms Cardiovascular: Reports: no symptoms Allergies: Coded Allergies: No Known Allergies (Unverified , 03/10/19) Objective Last 24 Hour Vital Signs Date Time Temp Pulse Resp B/P (MAP) Pulse Ox O2 Delivery O2 Flow Rate FiO2 03/12/19 04:00 Room Air 3.0 03/12/19 04:00 3.0 03/12/19 04:00 98.1 71 20 118/63 (81) 97 03/12/19 03:47 62 03/12/19 00:00 3.0 03/12/19 00:00 Room Air 3.0 03/11/19 23:56 98.2 68 20 103/55 (71) 96 03/11/19 23:47 67 03/11/19 20:00 98.0 71 22 113/64 (80) 97 03/11/19 20:00 Room Air 3.0 03/11/19 20:00 3.0 03/11/19 19:32 74 03/11/19 16:00 76 03/11/19 16:00 97.8 74 25 135/76 (95) 97 03/11/19 16:00 3.0 03/11/19 16:00 Room Air 3.0 03/11/19 12:00 98.0 70 21 137/81 (99) 96 03/11/19 12:00 Room Air 3.0 03/11/19 12:00 3.0 03/11/19 11:40 70 03/11/19 08:20 72 03/11/19 08:00 Room Air 3.0 03/11/19 08:00 3.0 03/11/19 08:00 98.0 75 22 120/69 (86) 98 03/11/19 07:00 95 Nasal Cannula 2.0 28 Intake and Output 03/11/19 03/12/19 19:00 07:00 Intake Total 750 ml 798 ml Output Total 700 ml 750 ml Balance 50 ml 48 ml Intake IV Total 750 ml 798 ml Output Urine Total 700 ml 750 ml General Appearance: WD/WN HEENT: normocephalic, atraumatic Respiratory/Chest: chest wall non-tender, lungs clear Cardiovascular: normal peripheral pulses, normal rate Abdomen: normal bowel sounds, soft, non tender Genitourinary: normal external genitalia Extremities: other - + edema Neurologic/Psychiatric: disoriented Microbiology Date/Time Source Procedure Growth Status 03/10/19 16:12 Blood Blood Culture - Preliminary NO GROWTH AFTER 24 HOURS Resulted 03/10/19 16:05 Blood Blood Culture - Preliminary NO GROWTH AFTER 24 HOURS Resulted Laboratory Tests 03/11/19 12:14: Arterial Blood pH 7.382, Arterial Blood Partial Pressure CO2 36.3, Arterial Blood Partial Pressure O2 45.4*L, Arterial Blood HCO3 21.1L, Arterial Blood Oxygen Saturation 78.1*L, Arterial Blood Base Excess -3.5L, Brady Test Positive 03/11/19 23:36: Arterial Blood pH 7.384, Arterial Blood Partial Pressure CO2 38.1, Arterial Blood Partial Pressure O2 72.5L, Arterial Blood HCO3 22.2, Arterial Blood Oxygen Saturation 93.5L, Arterial Blood Base Excess -2.5L, Brady Test N/a Current Medications Medications (Trade) Dose Ordered Sig/Raymond Route PRN Reason Start Time Stop Time Status Last Admin Dose Admin Acetaminophen (Tylenol) 650 mg Q4H PRN ORAL fever 03/10/19 22:30 04/09/19 22:29 Albuterol/ Ipratropium (Albuterol/ Ipratropium) 3 ml EVERY 4 HOURS PRN HHN Shortness of Breath 03/10/19 22:30 03/15/19 22:29 Aspirin (ASA) 81 mg DAILY ORAL 03/11/19 09:00 04/10/19 08:59 03/11/19 09:31 Clonidine HCl (Catapres Tab) 0.1 mg EVERY 4 HOURS PRN ORAL sbp more than 160 03/10/19 22:30 04/09/19 22:29 Dextrose 1,000 ml @ 75 mls/hr [id number] IV 03/11/19 07:30 04/10/19 07:29 03/11/19 20:22 Dextrose (Dextrose 50%) 25 ml Q30M PRN IV Hypoglycemia 03/10/19 22:30 04/09/19 22:29 Dextrose (Dextrose 50%) 50 ml Q30M PRN IV Hypoglycemia 03/10/19 22:30 04/09/19 22:29 03/11/19 05:05 Heparin Sodium (Porcine) (Heparin 5000 units/ml) 5,000 units EVERY 12 HOURS SUBQ 03/11/19 09:00 04/10/19 08:59 03/11/19 20:23 Insulin Aspart (NovoLOG) BEFORE MEALS AND HS SUBQ 03/11/19 21:00 04/10/19 20:59 Nitroglycerin (Ntg) 0.4 mg Q5M X 3 DOSES PRN SL Prn Chest Pain 03/10/19 22:30 04/09/19 22:29 Ondansetron HCl (Zofran) 4 mg Q6H PRN IVP Nausea & Vomiting 03/10/19 22:30 04/09/19 22:29 Polyethylene Glycol (Miralax) 17 gm HSPRN PRN ORAL Constipation 03/10/19 22:30 04/09/19 22:29 Temazepam (Restoril) 15 mg HSPRN PRN ORAL Insomnia 03/10/19 22:30 03/17/19 22:29 03/11/19 20:58 Marc Jeffries MD Mar 12, 2019 06:54
--- NOTE | 2019-03-12 07:00 | NUR ---
NURSE NOTES: received patient report from sindy roy. patient is on bed awake. on 3 LI NC. noted SOB upon exertion. bed is low and locked for safety, will follow plan of care.
[2019-03-12 08:00] VITALS: BP 126/69
[2019-03-12] MEDS: Aspirin Baby 81mg ORAL SCH (08:08)
[2019-03-12] MEDS: Heparin 5000 units/ml inj SUBQ SCH ×2 (08:11→20:45)
--- NOTE | 2019-03-12 10:24 | Cardiology Progress Note ---
Assessment/Plan Assessment/Plan [id number] hypoglycemia chf cm ? chronicity pmi diruetic acei bb in futerij trop pattern not suggest of acs as level persistently remain increased will repeat level echo noted chronicity of lv systolic dysfunction not know no record here or at [facility] not been abl to contact family Objective Last 24 Hour Vital Signs Date Time Temp Pulse Resp B/P (MAP) Pulse Ox O2 Delivery O2 Flow Rate FiO2 03/12/19 08:01 60 03/12/19 08:00 97.2 61 24 126/69 (88) 100 03/12/19 07:28 Room Air 3.0 03/12/19 07:10 3.0 03/12/19 04:00 Room Air 3.0 03/12/19 04:00 3.0 03/12/19 04:00 98.1 71 20 118/63 (81) 97 03/12/19 03:47 62 03/12/19 00:00 3.0 03/12/19 00:00 Room Air 3.0 03/11/19 23:56 98.2 68 20 103/55 (71) 96 03/11/19 23:47 67 03/11/19 20:00 98.0 71 22 113/64 (80) 97 03/11/19 20:00 Room Air 3.0 03/11/19 20:00 3.0 03/11/19 19:32 74 03/11/19 16:00 76 03/11/19 16:00 97.8 74 25 135/76 (95) 97 03/11/19 16:00 3.0 03/11/19 16:00 Room Air 3.0 03/11/19 12:00 98.0 70 21 137/81 (99) 96 03/11/19 12:00 Room Air 3.0 03/11/19 12:00 3.0 03/11/19 11:40 70 Intake and Output 03/11/19 03/12/19 19:00 07:00 Intake Total 750 ml 798 ml Output Total 700 ml 750 ml Balance 50 ml 48 ml Intake IV Total 750 ml 798 ml Output Urine Total 700 ml 750 ml Laboratory Tests Test 03/11/19 12:14 03/11/19 23:36 Arterial Blood pH 7.382 (7.350-7.450) 7.384 (7.350-7.450) Arterial Blood Partial Pressure CO2 36.3 mmHg (35.0-45.0) 38.1 mmHg (35.0-45.0) Arterial Blood Partial Pressure O2 45.4 mmHg (75.0-100.0) 72.5 mmHg (75.0-100.0) L Arterial Blood HCO3 21.1 mmol/L (22.0-26.0) L 22.2 mmol/L (22.0-26.0) Arterial Blood Oxygen Saturation 78.1 % (95-100) *L 93.5 % (95-100) L Arterial Blood Base Excess -3.5 (-2-2) L -2.5 (-2-2) L Brady Test Positive N/a Microbiology Date/Time Source Procedure Growth Status 03/10/19 16:12 Blood Blood Culture - Preliminary NO GROWTH AFTER 24 HOURS Resulted 03/10/19 16:05 Blood Blood Culture - Preliminary NO GROWTH AFTER 24 HOURS Resulted Rhett Kennedy MD Mar 12, 2019 10:24
[2019-03-12] MEDS: Dextrose 10% 1,000 ML IV SCH ×2 (10:30→23:30)
[2019-03-12] MEDS: Lisinopril 10mg tab ORAL SCH (11:01)
[2019-03-12 11:33] VITALS: BP 150/57
[2019-03-12] MEDS ORDERED: NS 275ml ONE (13:32)
[2019-03-12] MEDS ORDERED: Tubing IV Secondary IV ONE (13:32)
--- NOTE | 2019-03-12 13:36 | NUR ---
NURSE NOTES: left a message to dr barriga regarding patients changed of condition that patient is having difficulty swallowing, coughing on thin liquids and swelling on the Left arm.
--- NOTE | 2019-03-12 13:38 | NUR ---
NURSE NOTES: awaits callback and new order
--- NOTE | 2019-03-12 13:46 | Cardiology Report ---
APPROVED REPORT EKG Measurement Heart [id number] CT 132P51 [id number] <Conclusion> Abnormal ECG Electronic pacemaker
--- NOTE | 2019-03-12 13:50 | Cardiology Report ---
APPROVED REPORT EKG Measurement Heart [id number] CO 156P49 [id number] <Conclusion> Ventricular demand pacemaker Abnormal ECG
--- NOTE | 2019-03-12 13:51 | Cardiology Report ---
APPROVED REPORT EKG Measurement Heart [id number] NM 144P56 [id number] <Conclusion> Abnormal ECG Ventricular demand pacemaker
--- NOTE | 2019-03-12 14:19 | NUR ---
CASE MANAGEMENT: REVIEW 03/12/2019 SI: RESP FAILURE,PERSISTENT HYPOGLYCEMIA T 97.7 HR 60 RR 25 B/P 150/57 SATS 99% ON RA NO LABS TODAY IS: LASIX IV Q12H IVF D5NS@ 75 ML/HR COREG PO Q12H ASA PO QD LISINOPRIL PO QD INSULIN ASPART SUBQ AC/HS STEP DOWN STATUS DCP: RETURN HOME
--- NOTE | 2019-03-12 15:13 | Internal Med Progress Note ---
Subjective Date of Service: Mar 12, 2019 Physician Name Crescencio Lock Attending Physician Codey Winters MD Current Medications Medications (Trade) Dose Ordered Sig/Raymond Route PRN Reason Start Time Stop Time Status Last Admin Dose Admin Acetaminophen (Tylenol) 650 mg Q4H PRN ORAL fever 03/10/19 22:30 04/09/19 22:29 Albuterol/ Ipratropium (Albuterol/ Ipratropium) 3 ml EVERY 4 HOURS PRN HHN Shortness of Breath 03/10/19 22:30 03/15/19 22:29 Aspirin (ASA) 81 mg DAILY ORAL 03/11/19 09:00 04/10/19 08:59 03/12/19 08:08 Carvedilol (Coreg) 3.125 mg EVERY 12 HOURS ORAL 03/12/19 21:00 04/11/19 20:59 Clonidine HCl (Catapres Tab) 0.1 mg EVERY 4 HOURS PRN ORAL sbp more than 160 03/10/19 22:30 04/09/19 22:29 Dextrose 1,000 ml @ 75 mls/hr [id number] IV 03/11/19 07:30 04/10/19 07:29 03/12/19 10:30 Dextrose (Dextrose 50%) 25 ml Q30M PRN IV Hypoglycemia 03/10/19 22:30 04/09/19 22:29 Dextrose (Dextrose 50%) 50 ml Q30M PRN IV Hypoglycemia 03/10/19 22:30 04/09/19 22:29 03/11/19 05:05 Furosemide (Lasix) 20 mg EVERY 12 HOURS IV 03/12/19 09:00 04/11/19 08:59 03/12/19 08:08 Heparin Sodium (Porcine) (Heparin 5000 units/ml) 5,000 units EVERY 12 HOURS SUBQ 03/11/19 09:00 04/10/19 08:59 03/12/19 08:11 Insulin Aspart (NovoLOG) BEFORE MEALS AND HS SUBQ 03/11/19 21:00 04/10/19 20:59 03/12/19 11:02 Lisinopril (ZestriL) 10 mg DAILY ORAL 03/12/19 10:30 04/11/19 10:29 03/12/19 11:01 Nitroglycerin (Ntg) 0.4 mg Q5M X 3 DOSES PRN SL Prn Chest Pain 03/10/19 22:30 04/09/19 22:29 Ondansetron HCl (Zofran) 4 mg Q6H PRN IVP Nausea & Vomiting 03/10/19 22:30 04/09/19 22:29 Polyethylene Glycol (Miralax) 17 gm HSPRN PRN ORAL Constipation 03/10/19 22:30 04/09/19 22:29 Quetiapine Fumarate (SEROqueL) 25 mg Q12HR ORAL 03/12/19 09:00 04/11/19 08:59 03/12/19 08:08 Temazepam (Restoril) 15 mg HSPRN PRN ORAL Insomnia 03/10/19 22:30 03/17/19 22:29 03/11/19 20:58 Allergies: Coded Allergies: No Known Allergies (Unverified , 03/10/19) ROS Limited/Unobtainable: Yes Subjective 78 YO M admitted with altered mental status. Cover for Int Med-Dr Winters. [facility] Objective Last Vital Signs Date Time Temp Pulse Resp B/P (MAP) Pulse Ox O2 Delivery O2 Flow Rate FiO2 03/12/19 13:13 61 03/12/19 12:00 3.0 03/12/19 12:00 Room Air 03/12/19 11:33 97.7 25 150/57 (88) 99 03/11/19 07:00 28 Laboratory Tests Test 03/11/19 23:36 Arterial Blood pH 7.384 (7.350-7.450) Arterial Blood Partial Pressure CO2 38.1 mmHg (35.0-45.0) Arterial Blood Partial Pressure O2 72.5 mmHg (75.0-100.0) L Arterial Blood HCO3 22.2 mmol/L (22.0-26.0) Arterial Blood Oxygen Saturation 93.5 % (95-100) L Arterial Blood Base Excess -2.5 (-2-2) L Brady Test N/a Microbiology Date/Time Source Procedure Growth Status 03/10/19 16:12 Blood Blood Culture - Preliminary NO GROWTH AFTER 24 HOURS Resulted 03/10/19 16:05 Blood Blood Culture - Preliminary NO GROWTH AFTER 24 HOURS Resulted Intake and Output 03/11/19 03/12/19 19:00 07:00 Intake Total 750 ml 798 ml Output Total 700 ml 750 ml Balance 50 ml 48 ml Intake IV Total 750 ml 798 ml Output Urine Total 700 ml 750 ml Objective PHYSICAL EXAMINATION: GENERAL: The patient is awake, responsive, and sluggish. HEAD AND NECK: Pupils are reactive to light. Anicteric. NECK: Supple. No jugular venous distention. LUNGS: Good air entry. No wheeze or rales. Decreased air in the bases. HEART: S1, S2. Distant heart sounds. No murmur or gallops. ABDOMEN: Soft, nondistended, and nontender. Mildly obese. EXTREMITIES: No cyanosis or clubbing. Hyperpigmentation on the right lower extremity was noted and trace ankle edema. NEUROLOGIC: Cranial nerves II through XII are grossly intact. The patient is moving all the extremities spontaneously. Gait was not assessed due to the patient's status. RECTAL/GENITOURINARY: Refused and deferred. PSYCHIATRIC: Mood and affect is intact. Assessment/Plan Assessment/Plan ASSESSMENT: 1. Altered mental status, most likely secondary to toxic metabolic encephalopathy. 2. Diabetes type 2. 3. Congestive heart failure. 4. Hypertension. 5. Sick sinus syndrome status post pacemaker. 6. Obesity. PLAN: 1. Admit to [facility]. 2. We will continue on the D10 intravenous fluid. 3. Monitor blood glucose level closely. We will follow up with the 2D echo. 4. Resume home medication. 5. Duplex of lower extremity. 6. Discussed the case with Dr. Jeffries, Pulmonary Critical Care, as well as Cardiology consultation. 7. Code status, Full Code. Crescencio Lock MD Mar 12, 2019 15:13
[2019-03-12 16:00] VITALS: BP 136/76
--- NOTE | 2019-03-12 16:00 | NUR ---
NURSE NOTES: patient is noted to be coughing on thin and thick liquids, unable to tolerate diet now. dr barriga ordered ST eval on thursday. will continue to monitor.
--- NOTE | 2019-03-12 18:00 | NUR ---
NURSE NOTES: left a message to dr barriga regarding patients blood sugar of 35 and that dextrose 50 was given per protocol.. sugar went to 110 after d50 administration. awaits callback and new order.
[2019-03-12] MEDS: Albuterol/Ipratropium 3ml neb HHN PRN ×2 (18:48→22:48)
--- NOTE | 2019-03-12 19:07 | NUR ---
NURSE NOTES: Received report from JULIÁN Cummins. Patient is resting in bed awake- A/O x's1-2- confused, monitor car operator on and showing SR. No signs of cardiac distress noted at this time. Pt. c/o SOB and cough. Pt currently on venturi mask and RT at bedside. Comfort measures provided. David noted intact and draining to gravity, Rt. hand 22G IV intact and patent running D10W at 75mL/hr. Bed remains in lowest position and call light within easy reach, bed alarm on, side rails up x's3 and safety brakes engaged, safety measures continued and family at bedside educated. Will continue with plan of care. Will continue to monitor.
--- NOTE | 2019-03-12 19:23 | NUR ---
HAND-OFF: Report given to betty roy.
[2019-03-12 20:00] VITALS: BP 110/78
--- NOTE | 2019-03-12 20:48 | NUR ---
NURSE NOTES: SOB noted, RT to administered PRN albuterol. Will continue to monitor.
--- NOTE | 2019-03-12 21:15 | Consultation ---
DATE OF CONSULTATION: 03/12/2019 CARDIAC CONSULTATION CONSULTING PHYSICIAN: Rhett Kennedy M.D. REFERRING PHYSICIAN: Codey Winters M.D. REASON FOR REFERRAL: Congestive heart failure and abnormal cardiac enzymes. HISTORY OF PRESENT ILLNESS: This is an elderly gentleman, who is somewhat confused and not able to provide any meaningful information. Unfortunately, no phone numbers from the family are available. Injection Specialist run sheet indicate that the patient is a 78-year-old found lying in the bed, complaining of altered mentation secondary to low blood sugar. No obvious sign of trauma were noted. The patient is incontinent of urine. Family states that he has been like this since the morning. The patient is noncompliant with medication and is not eating. He was given some dextrose 50 and improved and the family indicated to the paramedics that they were having a hard time taking care of the patient and he needs more assist. The patient was brought to the emergency room here at the [facility] and has been admitted to the hospital. According to the records, the patient has had improvement . The patient denies any chest pain or shortness of breath or dizziness or lightheadedness or palpitations. PAST MEDICAL HISTORY: According to the chart is positive for history of hypertension, diabetes mellitus, insulin-dependent, sick sinus syndrome, status post pacemaker implantation, and congestive heart failure. ALLERGIES: No known allergies. SOCIAL HISTORY: No smoking, alcohol, or drugs. REVIEW OF SYSTEMS: GASTROINTESTINAL: Denies any abdominal pain. No nausea or vomiting. GENITOURINARY: Denies any discomfort on urination. PULMONARY: No coughing or wheezing. CONSTITUTIONAL: Negative. PHYSICAL EXAMINATION: GENERAL: Shows to be elderly gentleman, arousable, trying to communicate. NECK: Supple. No jugular venous distention. LUNGS: Relatively clear to auscultation and percussion. CARDIAC: S1 is normal. S2 is normal. Regular rate and rhythm. No heaves or thrills noted. ABDOMEN: Soft and nontender. Positive bowel sounds. EXTREMITY: There is chronic venous stasis changes noted. LABORATORY DATA: His white count 7.1, hemoglobin 11.1, and platelet count 198,000. Blood gases, pH of 7.38, pCO2 38, pO2 of 72, and bicarbonate of 22. This is from yesterday. Sodium 143, potassium 4.0, chloride 111, bicarb 23, BUN of 31, creatinine 1.3, and a glucose of 81 and A1c of 6.4. Calcium is 7.9. Magnesium 1.9. Liver function tests are normal. Troponin on 3 occasions 0.257, 0.214, and 0.209 and albumin of 2.3. Total cholesterol of 82 with LDL of 37 and HDL of 35. TSH is 0.75. Lipase when checked was 42. His coags, INR 1.2 and a PTT of 31. Urinalysis, 0 to 2 wbc's and 2 to 4 wbc's. Alcohol was 1. IMAGING: He did have a chest x-ray performed in the emergency room interpreted as cardiomegaly, bilateral interstitial and airspace edema, and possible left-sided pleural effusion. 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 An echocardiogram has been performed, interpreted final reading as technically difficult study. Global hypokinesis with akinesis of posterior and lateral wall, ejection fraction of 35%, and the pacemaker wire noted IVC of 2.2, mild aortic regurgitation, mild mitral regurgitation, and pseudo normalized diastolic inflow pattern, and pulmonary pressure of 41. His electrocardiogram shows atrial sense and ventricular pacing with a secondary changes on the V-paced leads. ASSESSMENT AND PLAN: 1. Hypoglycemia. 2. Diabetes mellitus. 3. Medication noncompliance. 4. Reported history of sick sinus syndrome, status post pacemaker implantation. 5. Reported history of congestive heart failure. 6. Cardiomyopathy. 7. Mitral regurgitation. 8. Abnormal cardiac enzymes of the . PLAN: Dr. Winters and Dr. Jeffries, this patient was seen in cardiac consultation. The patient denies any chest pain, however somewhat confused and information is really not reliable. His cardiac enzyme pattern is very steady with persistent elevation. We will repeat that level, not sure about any prior workup that he has had. I have not been able to contact any family members to obtain more information. In that light, we will see how his cardiac enzymes do change. He should receive medications for congestive heart failure that would include diuretics and PRESTON inhibitors and possibly beta-blockers as well. His medication list from outside is not available to review and no medication records are available in the digital program manager run sheet. The chart was reviewed. No list of medications are available in the chart and the emergency room physician's data was reviewed. Unfortunately, no medication lists are available in that setting either. Therefore, we will start the patient on some PRESTON inhibitors and watch renal function. The hypoglycemia is being handled by Dr. Rousseau, who has seen the patient in consultation for endocrine. Diuretics have already been instituted. Those will be continued intravenously and the patient will be followed along for any direct further recommendation. Dr. Jeffries and Dr. Winters, thank you for allowing me to participate in the care of this patient. Rhett Kennedy M.D. DR: CELSA JOB#: [id number] CC:
[2019-03-13] VITALS: BP 109/49
--- NOTE | 2019-03-13 00:10 | NUR ---
NURSE NOTES: Pt provided with oral care, bed bath and linen change. Pt tolerated care well. Pt continues to rest in bed; bed is in the lowest position, safety wheels engaged, call light within reach, side rails up x3, and bed alarm activated. Will continue to monitor.
[2019-03-13 04:00] VITALS: BP 115/50
[2019-03-13] MEDS: Albuterol/Ipratropium 3ml neb HHN PRN (04:41)
--- NOTE | 2019-03-13 04:48 | NUR ---
NURSE NOTES: SOB noted, paged RT to bedside to administer PRN Albuterol treatment. Pt continues to rest in bed; bed is in the lowest position, safety wheels engaged, call light within reach, side rails up x3, and bed alarm activated. Will continue to monitor.
[2019-03-13] MEDS: NovoLOG Insulin Flexpen SUBQ SCH ×4 (05:41→21:41)
[2019-03-13 07:07] LABS: BASOPHILS % (AUTO) 1.3 % (0.0-2.0); EOSINOPHILS % (AUTO) 1.6 % (0.0-3.0); HEMATOCRIT 34.3 % (42.0-52.0); HEMOGLOBIN 10.8 G/DL (14.2-18.0); MEAN CORPUSCULAR VOLUME 82 FL (80-99); MONOCYTES % (AUTO) 11.4 % (1.0-10.0); NEUTROPHILS % (AUTO) 70.7 % (45.0-75.0); PLATELET COUNT 138 K/UL (150-450); RED BLOOD COUNT 4.21 M/UL (4.70-6.10); WHITE BLOOD COUNT 7.5 K/UL (4.8-10.8)
[2019-03-13 07:25] LABS: ALANINE AMINOTRANSFERASE 20 U/L (12-78); ALBUMIN 2.3 G/DL (3.4-5.0); ALBUMIN/GLOBULIN RATIO 0.7 (1.0-2.7); ALKALINE PHOSPHATASE 106 U/L (46-116); ANION GAP 9 mmol/L (5-15); ASPARTATE AMINO TRANSFERASE 27 U/L (15-37); BILIRUBIN,TOTAL 0.8 MG/DL (0.2-1.0); BLOOD UREA NITROGEN 20 mg/dL (7-18); CARBON DIOXIDE 23 MMOL/L (21-32); CHLORIDE 108 MMOL/L (98-107); CREATININE 1.2 MG/DL (0.55-1.30); POTASSIUM 4.2 MMOL/L (3.5-5.1); SODIUM 140 MMOL/L (136-145)
--- NOTE | 2019-03-13 07:35 | Pulmonology Progress Note ---
Assessment/Plan Problems: (1) Hypoglycemia (2) Acute CHF (3) Acute metabolic encephalopathy (4) Cardiac LV ejection fraction 30-35% (5) Pacemaker (6) Diabetes mellitus Assessment/Plan still confused and agitated at times Echo reviewed, started on Lasix, cardio starte start Coreg and Jose A inhibitors cardio consult appreciated continue D10 add seroquel dvt prophylaxis check CXR and BNP in am Subjective Interval Events: still somnolent Allergies: Coded Allergies: No Known Allergies (Unverified , 03/10/19) Objective Last 24 Hour Vital Signs Date Time Temp Pulse Resp B/P (MAP) Pulse Ox O2 Delivery O2 Flow Rate FiO2 03/13/19 04:41 65 18 99 Nasal Cannula 3.0 32 63 18 98 03/13/19 04:00 3.0 03/13/19 04:00 Room Air 3.0 03/13/19 04:00 97.7 68 22 115/50 (71) 97 03/13/19 03:42 73 03/13/19 00:00 97.7 64 26 109/49 (69) 100 03/13/19 00:00 Room Air 3.0 03/12/19 23:48 70 03/12/19 22:48 64 18 99 Nasal Cannula 3.0 32 62 18 98 03/12/19 20:45 68 107/77 03/12/19 20:00 Room Air 3.0 03/12/19 20:00 3.0 03/12/19 20:00 64 03/12/19 20:00 98.1 71 24 110/78 (89) 98 03/12/19 19:27 64 03/12/19 18:48 65 18 97 Nasal Cannula 3.0 32 63 18 97 03/12/19 18:40 94 Venturi Mask 8.0 35 03/12/19 16:00 Room Air 3.0 03/12/19 16:00 97.7 68 21 136/76 (96) 100 03/12/19 16:00 3.0 03/12/19 15:53 66 03/12/19 15:14 95 Nasal Cannula 2.0 28 03/12/19 13:13 61 03/12/19 12:00 3.0 03/12/19 12:00 Room Air 3.0 03/12/19 11:33 97.7 60 25 150/57 (88) 99 03/12/19 11:01 126/69 03/12/19 08:01 60 03/12/19 08:00 97.2 61 24 126/69 (88) 100 Intake and Output 03/12/19 03/13/19 19:00 07:00 Intake Total 750 ml 900 ml Output Total 2100 ml 1700 ml Balance -1350 ml -800 ml Intake IV Total 750 ml 900 ml Output Urine Total 2100 ml 1700 ml # Bowel Movements 1 General Appearance: WD/WN HEENT: normocephalic, atraumatic Respiratory/Chest: chest wall non-tender, lungs clear Cardiovascular: normal peripheral pulses, normal rate Abdomen: normal bowel sounds, soft, non tender Skin: no rash, no lesions Neurologic/Psychiatric: certified low vision therapist II-XII grossly normal Lymphatic: no neck adenopathy Microbiology Date/Time Source Procedure Growth Status 03/10/19 16:12 Blood Blood Culture - Preliminary NO GROWTH AFTER 48 HOURS Resulted 03/10/19 16:05 Blood Blood Culture - Preliminary NO GROWTH AFTER 48 HOURS Resulted Laboratory Tests 03/13/19 04:24: White Blood Count 7.5, Red Blood Count 4.21L, Hemoglobin 10.8L, Hematocrit 34.3L , Mean Corpuscular Volume 82, Mean Corpuscular Hemoglobin 25.8L, Mean Corpuscular Hemoglobin Concent 31.6L, Red Cell Distribution Width 15.0H, Platelet Count 138L, Mean Platelet Volume 7.6, Neutrophils (%) (Auto) 70.7, Lymphocytes (%) (Auto) 15.0L, Monocytes (%) (Auto) 11.4H, Eosinophils (%) (Auto ) 1.6, Basophils (%) (Auto) 1.3, Sodium Level 140, Potassium Level 4.2, Chloride Level 108H, Carbon Dioxide Level 23, Anion Gap 9, Blood Urea Nitrogen 20H, Creatinine 1.2, Estimat Glomerular Filtration Rate , Glucose Level 95, Calcium Level 8.0L, Magnesium Level [Pending], Total Bilirubin 0.8, Aspartate Amino Transf (AST/SGOT) 27, Alanine Aminotransferase (ALT/SGPT) 20, Alkaline Phosphatase 106, Troponin I [Pending], Pro-B-Type Natriuretic Peptide 4062H, Total Protein 5.5L, Albumin 2.3L, Globulin 3.2, Albumin/Globulin Ratio 0.7L Current Medications Medications (Trade) Dose Ordered Sig/Raymond Route PRN Reason Start Time Stop Time Status Last Admin Dose Admin Acetaminophen (Tylenol) 650 mg Q4H PRN ORAL fever 03/10/19 22:30 04/09/19 22:29 Albuterol/ Ipratropium (Albuterol/ Ipratropium) 3 ml EVERY 4 HOURS PRN HHN Shortness of Breath 03/10/19 22:30 03/15/19 22:29 03/13/19 04:41 Aspirin (ASA) 81 mg DAILY ORAL 03/11/19 09:00 04/10/19 08:59 03/12/19 08:08 Carvedilol (Coreg) 3.125 mg EVERY 12 HOURS ORAL 03/12/19 21:00 04/11/19 20:59 03/12/19 20:45 Clonidine HCl (Catapres Tab) 0.1 mg EVERY 4 HOURS PRN ORAL sbp more than 160 03/10/19 22:30 04/09/19 22:29 Dextrose 1,000 ml @ 75 mls/hr [id number] IV 03/11/19 07:30 04/10/19 07:29 03/12/19 23:30 Dextrose (Dextrose 50%) 25 ml Q30M PRN IV Hypoglycemia 03/10/19 22:30 04/09/19 22:29 Dextrose (Dextrose 50%) 50 ml Q30M PRN IV Hypoglycemia 03/10/19 22:30 04/09/19 22:29 03/12/19 16:34 Furosemide (Lasix) 20 mg EVERY 12 HOURS IV 03/12/19 09:00 04/11/19 08:59 03/12/19 20:44 Heparin Sodium (Porcine) (Heparin 5000 units/ml) 5,000 units EVERY 12 HOURS SUBQ 03/11/19 09:00 04/10/19 08:59 03/12/19 20:45 Insulin Aspart (NovoLOG) BEFORE MEALS AND HS SUBQ 03/11/19 21:00 04/10/19 20:59 03/13/19 05:41 Lisinopril (ZestriL) 10 mg DAILY ORAL 03/12/19 10:30 04/11/19 10:29 03/12/19 11:01 Nitroglycerin (Ntg) 0.4 mg Q5M X 3 DOSES PRN SL Prn Chest Pain 03/10/19 22:30 04/09/19 22:29 Ondansetron HCl (Zofran) 4 mg Q6H PRN IVP Nausea & Vomiting 03/10/19 22:30 04/09/19 22:29 Polyethylene Glycol (Miralax) 17 gm HSPRN PRN ORAL Constipation 03/10/19 22:30 04/09/19 22:29 Quetiapine Fumarate (SEROqueL) 25 mg Q12HR ORAL 03/12/19 09:00 04/11/19 08:59 03/12/19 20:44 Temazepam (Restoril) 15 mg HSPRN PRN ORAL Insomnia 03/10/19 22:30 03/17/19 22:29 03/11/19 20:58 Marc Jeffries MD Mar 13, 2019 07:35
--- NOTE | 2019-03-13 07:40 | NUR ---
HAND-OFF: Report given to Valerie Bright RN.
[2019-03-13 08:00] VITALS: BP 105/68
--- NOTE | 2019-03-13 08:00 | NUR ---
NURSE NOTES: received pt in the bed, awake, confused, vital signs stable, no co pain, o2 3L via nasal canula, ski warm and dry to touch, intact, David catheter with yellow urine, at bed side, appetite poor, bed in low position, call light within reach.
[2019-03-13] MEDS: Lisinopril 10mg tab ORAL SCH (09:00)
[2019-03-13] MEDS: Heparin 5000 units/ml inj SUBQ SCH ×2 (09:12→21:40)
[2019-03-13] MEDS: Aspirin Baby 81mg ORAL SCH (09:13)
--- NOTE | 2019-03-13 10:33 | Diagnostic Imaging Report ---
EXAM: XR Chest, 1 View CLINICAL HISTORY: DYSPNEA TECHNIQUE: Frontal view of the chest. COMPARISON: Chest radiograph on 03/10/2019 FINDINGS: Hardware: None. Lungs/pleura: Increased hazy opacities throughout the lungs, concerning for pulmonary edema. Component of infectious/inflammatory process is not excluded. Left pleural effusion. Heart/mediastinum: Stable enlargement of the cardiomediastinal silhouette. Left-sided pacemaker/AICD. Soft tissues: Unremarkable. Bones: No acute fracture. Degenerative changes of the acromioclavicular joints and spine. Upper abdomen: Normal. IMPRESSION: Increased hazy opacities throughout the lungs, concerning for pulmonary edema. Component of infectious/inflammatory process is not excluded. Left pleural effusion.
--- NOTE | 2019-03-13 10:45 | General Progress Note ---
Assessment/Plan Problem List: (1) Diabetes mellitus ICD Codes: E11.9 - Type 2 diabetes mellitus without complications SNOMED: 47475900 (2) Hypoglycemia ICD Codes: E16.2 - Hypoglycemia, unspecified SNOMED: 188093526 (3) Acute CHF ICD Codes: I50.9 - Heart failure, unspecified SNOMED: 38286313, 721532044, 948223487 (4) Acute metabolic encephalopathy ICD Codes: G93.41 - Metabolic encephalopathy SNOMED: 11910272, 341280980 (5) Cardiac LV ejection fraction 30-35% ICD Codes: R94.30 - Abnormal result of cardiovascular function study, unspecified SNOMED: 96989085, 923387888 (6) Pacemaker ICD Codes: Z95.0 - Presence of cardiac pacemaker SNOMED: 721590721 Assessment/Plan: no need for basal insulin Novolog sliding scale ac / hs hypoglycemia protocol in order Subjective ROS Limited/Unobtainable: Yes Allergies: Coded Allergies: No Known Allergies (Unverified , 03/10/19) Subjective events noted no recurrence of hypoglycemia Item Value Date Time Bedside Blood Glucose 114 mg/dl 03/13/19 0630 Bedside Blood Glucose 73 mg/dl 03/12/19 2100 Bedside Blood Glucose 110 mg/dl 03/12/19 1645 Bedside Blood Glucose 132 mg/dl H 03/12/19 1102 Objective Last 24 Hour Vital Signs Date Time Temp Pulse Resp B/P (MAP) Pulse Ox O2 Delivery O2 Flow Rate FiO2 03/13/19 09:11 67 105/68 03/13/19 09:00 105/68 03/13/19 08:03 3.0 03/13/19 08:00 98.4 67 21 105/68 (80) 94 03/13/19 08:00 67 03/13/19 08:00 Room Air 3.0 03/13/19 04:41 65 18 99 Nasal Cannula 3.0 32 63 18 98 03/13/19 04:00 3.0 03/13/19 04:00 Room Air 3.0 03/13/19 04:00 97.7 68 22 115/50 (71) 97 03/13/19 03:42 73 03/13/19 00:00 97.7 64 26 109/49 (69) 100 03/13/19 00:00 Room Air 3.0 03/12/19 23:48 70 12/14/19 22:48 64 18 99 Nasal Cannula 3.0 32 62 18 98 03/12/19 20:45 68 107/77 03/12/19 20:00 Room Air 3.0 03/12/19 20:00 3.0 03/12/19 20:00 64 03/12/19 20:00 98.1 71 24 110/78 (89) 98 03/12/19 19:27 64 03/12/19 18:48 65 18 97 Nasal Cannula 3.0 32 63 18 97 03/12/19 18:40 94 Venturi Mask 8.0 35 03/12/19 16:00 Room Air 3.0 03/12/19 16:00 97.7 68 21 136/76 (96) 100 03/12/19 16:00 3.0 03/12/19 15:53 66 03/12/19 15:14 95 Nasal Cannula 2.0 28 03/12/19 13:13 61 03/12/19 12:00 3.0 03/12/19 12:00 Room Air 3.0 03/12/19 11:33 97.7 60 25 150/57 (88) 99 03/12/19 11:01 126/69 Intake and Output 03/12/19 03/13/19 19:00 07:00 Intake Total 750 ml 900 ml Output Total 2100 ml 1700 ml Balance -1350 ml -800 ml Intake IV Total 750 ml 900 ml Output Urine Total 2100 ml 1700 ml # Bowel Movements 1 Laboratory Tests 03/13/19 04:24: White Blood Count 7.5, Red Blood Count 4.21L, Hemoglobin 10.8L, Hematocrit 34.3L , Mean Corpuscular Volume 82, Mean Corpuscular Hemoglobin 25.8L, Mean Corpuscular Hemoglobin Concent 31.6L, Red Cell Distribution Width 15.0H, Platelet Count 138L, Mean Platelet Volume 7.6, Neutrophils (%) (Auto) 70.7, Lymphocytes (%) (Auto) 15.0L, Monocytes (%) (Auto) 11.4H, Eosinophils (%) (Auto ) 1.6, Basophils (%) (Auto) 1.3, Sodium Level 140, Potassium Level 4.2, Chloride Level 108H, Carbon Dioxide Level 23, Anion Gap 9, Blood Urea Nitrogen 20H, Creatinine 1.2, Estimat Glomerular Filtration Rate , Glucose Level 95, Calcium Level 8.0L, Magnesium Level 1.8, Total Bilirubin 0.8, Aspartate Amino Transf (AST/SGOT) 27, Alanine Aminotransferase (ALT/SGPT) 20, Alkaline Phosphatase 106, Troponin I 0.181H, Pro-B-Type Natriuretic Peptide 4062H, Total Protein 5.5L, Albumin 2.3L, Globulin 3.2, Albumin/Globulin Ratio 0.7L Height (Feet): 5 Height (Inches): 8.00 Weight (Pounds): 200 General Appearance: no apparent distress Neck: normal alignment Cardiovascular: normal rate Respiratory/Chest: decreased breath sounds Abdomen: normal bowel sounds Objective Current Medications Medications (Trade) Dose Ordered Sig/Raymond Route PRN Reason Start Time Stop Time Status Last Admin Dose Admin Acetaminophen (Tylenol) 650 mg Q4H PRN ORAL fever 03/10/19 22:30 04/09/19 22:29 Albuterol/ Ipratropium (Albuterol/ Ipratropium) 3 ml EVERY 4 HOURS PRN HHN Shortness of Breath 03/10/19 22:30 03/15/19 22:29 03/13/19 04:41 Aspirin (ASA) 81 mg DAILY ORAL 03/11/19 09:00 04/10/19 08:59 03/13/19 09:13 Carvedilol (Coreg) 3.125 mg EVERY 12 HOURS ORAL 03/12/19 21:00 04/11/19 20:59 03/13/19 09:11 Clonidine HCl (Catapres Tab) 0.1 mg EVERY 4 HOURS PRN ORAL sbp more than 160 03/10/19 22:30 04/09/19 22:29 Dextrose 1,000 ml @ 75 mls/hr [id number] IV 03/11/19 07:30 04/10/19 07:29 03/12/19 23:30 Dextrose (Dextrose 50%) 25 ml Q30M PRN IV Hypoglycemia 03/10/19 22:30 04/09/19 22:29 Dextrose (Dextrose 50%) 50 ml Q30M PRN IV Hypoglycemia 03/10/19 22:30 04/09/19 22:29 03/12/19 16:34 Furosemide (Lasix) 20 mg EVERY 12 HOURS IV 03/12/19 09:00 04/11/19 08:59 03/13/19 09:09 Heparin Sodium (Porcine) (Heparin 5000 units/ml) 5,000 units EVERY 12 HOURS SUBQ 03/11/19 09:00 04/10/19 08:59 03/13/19 09:12 Insulin Aspart (NovoLOG) BEFORE MEALS AND HS SUBQ 03/11/19 21:00 04/10/19 20:59 03/13/19 05:41 Lisinopril (ZestriL) 10 mg DAILY ORAL 03/12/19 10:30 04/11/19 10:29 03/12/19 11:01 Nitroglycerin (Ntg) 0.4 mg Q5M X 3 DOSES PRN SL Prn Chest Pain 03/10/19 22:30 04/09/19 22:29 Ondansetron HCl (Zofran) 4 mg Q6H PRN IVP Nausea & Vomiting 03/10/19 22:30 04/09/19 22:29 Polyethylene Glycol (Miralax) 17 gm HSPRN PRN ORAL Constipation 03/10/19 22:30 04/09/19 22:29 Quetiapine Fumarate (SEROqueL) 25 mg Q12HR ORAL 03/12/19 09:00 04/11/19 08:59 03/13/19 09:11 Temazepam (Restoril) 15 mg HSPRN PRN ORAL Insomnia 03/10/19 22:30 03/17/19 22:29 03/11/19 20:58 Ralf Rousseau MD Mar 13, 2019 10:45
[2019-03-13 12:00] VITALS: BP 150/61
[2019-03-13] MEDS: Dextrose 10% 1,000 ML IV SCH (12:09)
--- NOTE | 2019-03-13 12:15 | NUR ---
NURSE NOTES: vital signs stable, no co pain, repositioned, continue monitoring.
--- NOTE | 2019-03-13 13:59 | Cardiology Progress Note ---
Assessment/Plan Assessment/Plan 1. Hypoglycemia. 2. Diabetes mellitus. 3. Medication noncompliance. 4. Reported history of sick sinus syndrome, status post pacemaker implantation. 5. Reported history of congestive heart failure. 6. Cardiomyopathy. 7. Mitral regurgitation. 8. Abnormal cardiac enzymes continue diuretics trop without a peak or susana , will follow trail cxr personally reviewed dc ivf Subjective Cardiovascular: Denies: chest pain Respiratory: Denies: shortness of breath Gastrointestinal/Abdominal: Denies: abdominal pain Genitourinary: Denies: burning Subjective dizzy Objective Last 24 Hour Vital Signs Date Time Temp Pulse Resp B/P (MAP) Pulse Ox O2 Delivery O2 Flow Rate FiO2 03/13/19 12:00 63 03/13/19 12:00 97.9 70 23 150/61 (90) 94 03/13/19 12:00 3.0 03/13/19 12:00 Room Air 3.0 03/13/19 09:11 67 105/68 03/13/19 09:00 105/68 03/13/19 08:03 3.0 03/13/19 08:00 98.4 67 21 105/68 (80) 94 03/13/19 08:00 67 03/13/19 08:00 Room Air 3.0 03/13/19 04:41 65 18 99 Nasal Cannula 3.0 32 63 18 98 03/13/19 04:00 3.0 03/13/19 04:00 Room Air 3.0 03/13/19 04:00 97.7 68 22 115/50 (71) 97 03/13/19 03:42 73 03/13/19 00:00 97.7 64 26 109/49 (69) 100 03/13/19 00:00 Room Air 3.0 03/12/19 23:48 70 03/12/19 22:48 64 18 99 Nasal Cannula 3.0 32 62 18 98 03/12/19 20:45 68 107/77 03/12/19 20:00 Room Air 3.0 03/12/19 20:00 3.0 03/12/19 20:00 64 03/12/19 20:00 98.1 71 24 110/78 (89) 98 03/12/19 19:27 64 03/12/19 18:48 65 18 97 Nasal Cannula 3.0 32 63 18 97 03/12/19 18:40 94 Venturi Mask 8.0 35 03/12/19 16:00 Room Air 3.0 03/12/19 16:00 97.7 68 21 136/76 (96) 100 03/12/19 16:00 3.0 03/12/19 15:53 66 03/12/19 15:14 95 Nasal Cannula 2.0 28 General Appearance: no apparent distress, alert Neck: supple Cardiovascular: normal rate Respiratory/Chest: lungs clear Abdomen: normal bowel sounds, non tender, soft Extremities: no swelling Intake and Output 03/12/19 03/13/19 19:00 07:00 Intake Total 750 ml 900 ml Output Total 2100 ml 1700 ml Balance -1350 ml -800 ml Intake IV Total 750 ml 900 ml Output Urine Total 2100 ml 1700 ml # Bowel Movements 1 Laboratory Tests Test 03/13/19 04:24 White Blood Count 7.5 K/UL (4.8-10.8) Red Blood Count 4.21 M/UL (4.70-6.10) L Hemoglobin 10.8 G/DL (14.2-18.0) L Hematocrit 34.3 % (42.0-52.0) L Mean Corpuscular Volume 82 FL (80-99) Mean Corpuscular Hemoglobin 25.8 PG (27.0-31.0) L Mean Corpuscular Hemoglobin Concent 31.6 G/DL (32.0-36.0) L Red Cell Distribution Width 15.0 % (11.6-14.8) H Platelet Count 138 K/UL (150-450) L Mean Platelet Volume 7.6 FL (6.5-10.1) Neutrophils (%) (Auto) 70.7 % (45.0-75.0) Lymphocytes (%) (Auto) 15.0 % (20.0-45.0) L Monocytes (%) (Auto) 11.4 % (1.0-10.0) H Eosinophils (%) (Auto) 1.6 % (0.0-3.0) Basophils (%) (Auto) 1.3 % (0.0-2.0) Sodium Level 140 MMOL/L (136-145) Potassium Level 4.2 MMOL/L (3.5-5.1) Chloride Level 108 MMOL/L (98-107) H Carbon Dioxide Level 23 MMOL/L (21-32) Anion Gap 9 mmol/L (5-15) Blood Urea Nitrogen 20 mg/dL (7-18) H Creatinine 1.2 MG/DL (0.55-1.30) Estimat Glomerular Filtration Rate mL/min (>60) Glucose Level 95 MG/DL (74-106) Calcium Level 8.0 MG/DL (8.5-10.1) L Magnesium Level 1.8 MG/DL (1.8-2.4) Total Bilirubin 0.8 MG/DL (0.2-1.0) Aspartate Amino Transf (AST/SGOT) 27 U/L (15-37) Alanine Aminotransferase (ALT/SGPT) 20 U/L (12-78) Alkaline Phosphatase 106 U/L (46-116) Troponin I 0.181 ng/mL (0.000-0.056) Pro-B-Type Natriuretic Peptide 4062 pg/mL (0-125) H Total Protein 5.5 G/DL (6.4-8.2) L Albumin 2.3 G/DL (3.4-5.0) L Globulin 3.2 g/dL Albumin/Globulin Ratio 0.7 (1.0-2.7) L Microbiology Date/Time Source Procedure Growth Status 03/10/19 16:12 Blood Blood Culture - Preliminary NO GROWTH AFTER 48 HOURS Resulted 03/10/19 16:05 Blood Blood Culture - Preliminary NO GROWTH AFTER 48 HOURS Resulted Rhett Kennedy MD Mar 13, 2019 13:59
--- NOTE | 2019-03-13 14:31 | Internal Med Progress Note ---
Subjective Date of Service: Mar 13, 2019 Physician Name Crescencio Lock Attending Physician Codey Winters MD Current Medications Medications (Trade) Dose Ordered Sig/Raymond Route PRN Reason Start Time Stop Time Status Last Admin Dose Admin Acetaminophen (Tylenol) 650 mg Q4H PRN ORAL fever 03/10/19 22:30 04/09/19 22:29 Albuterol/ Ipratropium (Albuterol/ Ipratropium) 3 ml EVERY 4 HOURS PRN HHN Shortness of Breath 03/10/19 22:30 03/15/19 22:29 03/13/19 04:41 Aspirin (ASA) 81 mg DAILY ORAL 03/11/19 09:00 04/10/19 08:59 03/13/19 09:13 Carvedilol (Coreg) 3.125 mg EVERY 12 HOURS ORAL 03/12/19 21:00 04/11/19 20:59 03/13/19 09:11 Clonidine HCl (Catapres Tab) 0.1 mg EVERY 4 HOURS PRN ORAL sbp more than 160 03/10/19 22:30 04/09/19 22:29 Dextrose (Dextrose 50%) 25 ml Q30M PRN IV Hypoglycemia 03/10/19 22:30 04/09/19 22:29 Dextrose (Dextrose 50%) 50 ml Q30M PRN IV Hypoglycemia 03/10/19 22:30 04/09/19 22:29 03/12/19 16:34 Furosemide (Lasix) 20 mg EVERY 12 HOURS IV 03/12/19 09:00 04/11/19 08:59 03/13/19 09:09 Heparin Sodium (Porcine) (Heparin 5000 units/ml) 5,000 units EVERY 12 HOURS SUBQ 03/11/19 09:00 04/10/19 08:59 03/13/19 09:12 Insulin Aspart (NovoLOG) BEFORE MEALS AND HS SUBQ 03/11/19 21:00 04/10/19 20:59 03/13/19 12:09 Lisinopril (ZestriL) 10 mg DAILY ORAL 03/12/19 10:30 04/11/19 10:29 03/12/19 11:01 Nitroglycerin (Ntg) 0.4 mg Q5M X 3 DOSES PRN SL Prn Chest Pain 03/10/19 22:30 1/11/20 22:29 Ondansetron HCl (Zofran) 4 mg Q6H PRN IVP Nausea & Vomiting 03/10/19 22:30 04/09/19 22:29 Polyethylene Glycol (Miralax) 17 gm HSPRN PRN ORAL Constipation 03/10/19 22:30 04/09/19 22:29 Quetiapine Fumarate (SEROqueL) 25 mg Q12HR ORAL 03/12/19 09:00 04/11/19 08:59 03/13/19 09:11 Temazepam (Restoril) 15 mg HSPRN PRN ORAL Insomnia 03/10/19 22:30 03/17/19 22:29 03/11/19 20:58 Allergies: Coded Allergies: No Known Allergies (Unverified , 03/10/19) ROS Limited/Unobtainable: Yes Subjective 78 YO M admitted with altered mental status. Cover for Int Med-Dr Winters. JOSE L Objective Last Vital Signs Date Time Temp Pulse Resp B/P (MAP) Pulse Ox O2 Delivery O2 Flow Rate FiO2 03/13/19 12:00 63 03/13/19 12:00 97.9 23 150/61 (90) 94 03/13/19 12:00 3.0 03/13/19 12:00 Room Air 03/13/19 04:41 32 Laboratory Tests Test 03/13/19 04:24 White Blood Count 7.5 K/UL (4.8-10.8) Red Blood Count 4.21 M/UL (4.70-6.10) L Hemoglobin 10.8 G/DL (14.2-18.0) L Hematocrit 34.3 % (42.0-52.0) L Mean Corpuscular Volume 82 FL (80-99) Mean Corpuscular Hemoglobin 25.8 PG (27.0-31.0) L Mean Corpuscular Hemoglobin Concent 31.6 G/DL (32.0-36.0) L Red Cell Distribution Width 15.0 % (11.6-14.8) H Platelet Count 138 K/UL (150-450) L Mean Platelet Volume 7.6 FL (6.5-10.1) Neutrophils (%) (Auto) 70.7 % (45.0-75.0) Lymphocytes (%) (Auto) 15.0 % (20.0-45.0) L Monocytes (%) (Auto) 11.4 % (1.0-10.0) H Eosinophils (%) (Auto) 1.6 % (0.0-3.0) Basophils (%) (Auto) 1.3 % (0.0-2.0) Sodium Level 140 MMOL/L (136-145) Potassium Level 4.2 MMOL/L (3.5-5.1) Chloride Level 108 MMOL/L (98-107) H Carbon Dioxide Level 23 MMOL/L (21-32) Anion Gap 9 mmol/L (5-15) Blood Urea Nitrogen 20 mg/dL (7-18) H Creatinine 1.2 MG/DL (0.55-1.30) Estimat Glomerular Filtration Rate mL/min (>60) Glucose Level 95 MG/DL (74-106) Calcium Level 8.0 MG/DL (8.5-10.1) L Magnesium Level 1.8 MG/DL (1.8-2.4) Total Bilirubin 0.8 MG/DL (0.2-1.0) Aspartate Amino Transf (AST/SGOT) 27 U/L (15-37) Alanine Aminotransferase (ALT/SGPT) 20 U/L (12-78) Alkaline Phosphatase 106 U/L (46-116) Troponin I 0.181 ng/mL (0.000-0.056) Pro-B-Type Natriuretic Peptide 4062 pg/mL (0-125) H Total Protein 5.5 G/DL (6.4-8.2) L Albumin 2.3 G/DL (3.4-5.0) L Globulin 3.2 g/dL Albumin/Globulin Ratio 0.7 (1.0-2.7) L Microbiology Date/Time Source Procedure Growth Status 03/10/19 16:12 Blood Blood Culture - Preliminary NO GROWTH AFTER 48 HOURS Resulted 03/10/19 16:05 Blood Blood Culture - Preliminary NO GROWTH AFTER 48 HOURS Resulted Intake and Output 03/12/19 03/13/19 19:00 07:00 Intake Total 750 ml 900 ml Output Total 2100 ml 1700 ml Balance -1350 ml -800 ml Intake IV Total 750 ml 900 ml Output Urine Total 2100 ml 1700 ml # Bowel Movements 1 Objective PHYSICAL EXAMINATION: GENERAL: The patient is awake, responsive, and sluggish. HEAD AND NECK: Pupils are reactive to light. Anicteric. NECK: Supple. No jugular venous distention. LUNGS: Good air entry. No wheeze or rales. Decreased air in the bases. HEART: S1, S2. Distant heart sounds. No murmur or gallops. ABDOMEN: Soft, nondistended, and nontender. Mildly obese. EXTREMITIES: No cyanosis or clubbing. Hyperpigmentation on the right lower extremity was noted and trace ankle edema. NEUROLOGIC: Cranial nerves II through XII are grossly intact. The patient is moving all the extremities spontaneously. Gait was not assessed due to the patient's status. RECTAL/GENITOURINARY: Refused and deferred. PSYCHIATRIC: Mood and affect is intact. Assessment/Plan Assessment/Plan ASSESSMENT: 1. Altered mental status, most likely secondary to toxic metabolic encephalopathy. 2. Diabetes type 2. 3. Congestive heart failure. 4. Hypertension. 5. Sick sinus syndrome status post pacemaker. 6. Obesity. PLAN: 1. Admit to [facility]. 2. We will continue on the D10 intravenous fluid. 3. Monitor blood glucose level closely. We will follow up with the 2D echo. 4. Resume home medication. 5. Duplex of lower extremity. 6. Discussed the case with Dr. Jeffries, Pulmonary Critical Care, as well as Cardiology consultation. 7. Code status, Full Code. Crescencio Lock MD Mar 13, 2019 14:31
[2019-03-13 16:00] VITALS: BP 141/71
--- NOTE | 2019-03-13 16:00 | Consultation ---
DATE OF CONSULTATION: 03/13/2019 ENDOCRINOLOGY CONSULTATION CONSULTING PHYSICIAN: Ralf Rousseau M.D. REFERRING PHYSICIAN: Codey Winters M.D. REASON FOR CONSULTATION: Hypoglycemia. HISTORY OF PRESENT ILLNESS: The patient is a 78-year-old male, who presented to the hospital with altered mental status. The patient was lethargic. Glucose was 26 and was given glucose in the field. The patient is admitted to the hospital for observation and treatment, treated with dextrose, but he is still lethargic and unable to provide any meaningful history. PAST MEDICAL HISTORY: 1. Type 2 diabetes, insulin-dependent. 2. CHF. 3. Sick sinus syndrome. 4. Hypertension. MEDICATIONS: Reviewed and reconciled. ALLERGIES TO MEDICATIONS: None. SOCIAL HISTORY: No smoking, alcohol, or drug use. FAMILY HISTORY: Noncontributory. REVIEW OF SYSTEMS: Difficult to obtain due to the patient's condition. PHYSICAL EXAMINATION: VITAL SIGNS: Blood pressure is 160/80, pulse is 80, temperature 98.2, respiratory rate 18. HEENT: Pupils are equal and reactive to light. Sclerae are anicteric. NECK: No JVD. HEART: Regular. LUNGS: Clear. ABDOMEN: Positive bowel sounds. EXTREMITIES: No clubbing, cyanosis, or edema. LABORATORY VALUES: WBC 7, hemoglobin 11.1, hematocrit 34.7, and platelets of 198,000. Sodium 142, potassium 4, chloride 111, bicarb 22, BUN 31, creatinine 1.3. Troponin 0.2. TSH 0.7. BNP 4062. DIAGNOSES: 1. Altered mental status. 2. Hypoglycemia. 3. CHF. PLAN: 1. Hold oral diabetic agents or scheduled insulin. 2. Glucose monitoring before meals and at bedtime. 3. Low-dose sliding scale. 4. Hypoglycemia protocol is in order. 5. Further adjustment according to the blood glucose values. I will follow the patient during the hospital stay. Thank you, Dr. Winters, for the courtesy of this consultation. Ralf Rousseau M.D. : JULIÁN/LEN JOB#: [id number] CC:
--- NOTE | 2019-03-13 19:22 | NUR ---
HAND-OFF: Report given to APOLINAR RN.
--- NOTE | 2019-03-13 19:25 | NUR ---
NURSE NOTES: Received report from Olena Germain RN. Patient in bed asleep with no S/S of distress or discomfort noted at this time. Kept clean, dry, and comfortable in bed with at bedside. On 3L NC as ordered with no signs of any resp distress or SOB observed. Placed on cardiac monitoring per protocol. IV line intact and patent SL. Safety precaution in place; siderails X2 up, call light within reach, bed in lowest position, brakes and alarm on all times. Needs and wants anticipated and attended. Will continue plan of care. Will closely monitor BS ACHS
[2019-03-13 20:00] VITALS: BP 131/90
[2019-03-14] VITALS: BP 114/69
[2019-03-14 04:00] VITALS: BP 126/91
[2019-03-14 05:48] LABS: BASOPHILS % (AUTO) 1.4 % (0.0-2.0); EOSINOPHILS % (AUTO) 2.6 % (0.0-3.0); HEMOGLOBIN 11.4 G/DL (14.2-18.0); LYMPHOCYTES % (AUTO) 21.9 % (20.0-45.0); MEAN CORPUSCULAR VOLUME 81 FL (80-99); MONOCYTES % (AUTO) 12.2 % (1.0-10.0); NEUTROPHILS % (AUTO) 61.9 % (45.0-75.0); PLATELET COUNT 180 K/UL (150-450); RED BLOOD COUNT 4.43 M/UL (4.70-6.10); WHITE BLOOD COUNT 6.5 K/UL (4.8-10.8)
[2019-03-14] MEDS: NovoLOG Insulin Flexpen SUBQ SCH ×4 (05:55→20:55)
[2019-03-14 06:20] LABS: ALANINE AMINOTRANSFERASE 21 U/L (12-78); ALBUMIN 2.4 G/DL (3.4-5.0); ALBUMIN/GLOBULIN RATIO 0.7 (1.0-2.7); ALKALINE PHOSPHATASE 113 U/L (46-116); ANION GAP 6 mmol/L (5-15); ASPARTATE AMINO TRANSFERASE 19 U/L (15-37); BILIRUBIN,TOTAL 1.5 MG/DL (0.2-1.0); BLOOD UREA NITROGEN 15 mg/dL (7-18); CALCIUM 8.4 MG/DL (8.5-10.1); CARBON DIOXIDE 27 MMOL/L (21-32); CHLORIDE 108 MMOL/L (98-107); CREATININE 1.2 MG/DL (0.55-1.30); SODIUM 141 MMOL/L (136-145)
[2019-03-14 06:22] LABS: BILIRUBIN,DIRECT 0.5 MG/DL (0.0-0.3)
--- NOTE | 2019-03-14 07:25 | NUR ---
NURSE NOTES: Received report from Marshal Carmichael RN. Patient in bed, alert and oriented x 1, confused. Receiving O2 via nasal cannula @ 3L/min, respirations even and unlabored. David catheter patent and draining well. Right hand 22g IV site asymptomatic. Bed locked in lowest position with side rails up x 3. All needs attended to. Call light within reach. Will continue to monitor.
--- NOTE | 2019-03-14 07:38 | NUR ---
HAND-OFF: Report given to Stephanie Palmer RN. Patient in stable condition, endorsed plan of care.
[2019-03-14 08:00] VITALS: BP 141/83
[2019-03-14] MEDS: Aspirin Baby 81mg ORAL SCH (09:13)
[2019-03-14] MEDS: Lisinopril 10mg tab ORAL SCH (09:13)
[2019-03-14] MEDS: Heparin 5000 units/ml inj SUBQ SCH (09:16)
--- NOTE | 2019-03-14 09:56 | NUR ---
RADIOLOGY DEPT., CHEST X-RAY DONE.-P.DYE
--- NOTE | 2019-03-14 10:52 | Pulmonology Progress Note ---
Assessment/Plan Problems: (1) Hypoglycemia (2) Acute CHF (3) Acute metabolic encephalopathy (4) Cardiac LV ejection fraction 30-35% (5) Pacemaker (6) Diabetes mellitus Assessment/Plan more alert agitated at times Echo reviewed, started on Lasix, increase to TID cxr reviewed today, still lots of edema cardio starte start Coreg and Jose A inhibitors add seroquel dvt prophylaxis check CXR and BNP in am Subjective ROS Limited/Unobtainable: No Constitutional: Reports: no symptoms HEENT: Repors: no symptoms Respiratory: Reports: no symptoms Allergies: Coded Allergies: No Known Allergies (Unverified , 03/10/19) Objective Last 24 Hour Vital Signs Date Time Temp Pulse Resp B/P (MAP) Pulse Ox O2 Delivery O2 Flow Rate FiO2 03/14/19 09:13 68 141/83 03/14/19 09:13 141/83 03/14/19 08:00 98.5 68 20 141/83 (102) 94 03/14/19 08:00 3.0 03/14/19 07:30 96 Nasal Cannula 2.0 28 03/14/19 07:24 70 03/14/19 04:00 Room Air 3.0 03/14/19 04:00 3.0 03/14/19 04:00 69 03/14/19 04:00 97.8 69 20 126/91 (103) 100 03/14/19 00:00 97.8 62 20 114/69 (84) 96 03/14/19 00:00 Room Air 3.0 03/14/19 00:00 66 03/13/19 21:37 71 131/90 03/13/19 21:00 3.0 03/13/19 20:00 97.7 71 22 131/90 (104) 96 03/13/19 20:00 73 03/13/19 20:00 Room Air 3.0 03/13/19 18:54 95 Nasal Cannula 2.0 28 03/13/19 16:00 Room Air 3.0 03/13/19 16:00 98.1 64 22 141/71 (94) 95 03/13/19 16:00 64 03/13/19 16:00 3.0 03/13/19 12:00 63 03/13/19 12:00 97.9 70 23 150/61 (90) 94 03/13/19 12:00 3.0 03/13/19 12:00 Room Air 3.0 Intake and Output 03/13/19 03/14/19 19:00 07:00 Intake Total 375 ml Output Total 2575 ml 2000 ml Balance -2200 ml -2000 ml Intake IV Total 375 ml Output Urine Total 2575 ml 2000 ml General Appearance: WD/WN Respiratory/Chest: chest wall non-tender, crackles/rales Cardiovascular: normal peripheral pulses, normal rate Abdomen: normal bowel sounds, soft, non tender Genitourinary: normal external genitalia Extremities: no cyanosis Skin: no lesions Neurologic/Psychiatric: life underwriter II-XII grossly normal Laboratory Tests 03/14/19 04:55: White Blood Count 6.5, Red Blood Count 4.43L, Hemoglobin 11.4L, Hematocrit 36.0L , Mean Corpuscular Volume 81, Mean Corpuscular Hemoglobin 25.7L, Mean Corpuscular Hemoglobin Concent 31.7L, Red Cell Distribution Width 15.0H, Platelet Count 180, Mean Platelet Volume 8.5, Neutrophils (%) (Auto) 61.9, Lymphocytes (%) (Auto) 21.9, Monocytes (%) (Auto) 12.2H, Eosinophils (%) (Auto) 2.6, Basophils (%) (Auto) 1.4, Sodium Level 141, Potassium Level 4.0, Chloride Level 108H, Carbon Dioxide Level 27, Anion Gap 6, Blood Urea Nitrogen 15, Creatinine 1.2, Estimat Glomerular Filtration Rate , Glucose Level 105, Calcium Level 8.4L, Total Bilirubin 1.5H, Direct Bilirubin 0.5H, Aspartate Amino Transf (AST/SGOT) 19, Alanine Aminotransferase (ALT/SGPT) 21, Alkaline Phosphatase 113 , Pro-B-Type Natriuretic Peptide 7204H, Total Protein 6.0L, Albumin 2.4L, Globulin 3.6, Albumin/Globulin Ratio 0.7L Current Medications Medications (Trade) Dose Ordered Sig/Raymond Route PRN Reason Start Time Stop Time Status Last Admin Dose Admin Acetaminophen (Tylenol) 650 mg Q4H PRN ORAL fever 03/10/19 22:30 04/09/19 22:29 Albuterol/ Ipratropium (Albuterol/ Ipratropium) 3 ml EVERY 4 HOURS PRN HHN Shortness of Breath 03/10/19 22:30 03/15/19 22:29 03/13/19 04:41 Aspirin (ASA) 81 mg DAILY ORAL 03/11/19 09:00 04/10/19 08:59 03/14/19 09:13 Carvedilol (Coreg) 3.125 mg EVERY 12 HOURS ORAL 03/12/19 21:00 04/11/19 20:59 03/14/19 09:13 Clonidine HCl (Catapres Tab) 0.1 mg EVERY 4 HOURS PRN ORAL sbp more than 160 03/10/19 22:30 04/09/19 22:29 Dextrose (Dextrose 50%) 25 ml Q30M PRN IV Hypoglycemia 03/10/19 22:30 04/09/19 22:29 Dextrose (Dextrose 50%) 50 ml Q30M PRN IV Hypoglycemia 03/10/19 22:30 04/09/19 22:29 03/12/19 16:34 Furosemide (Lasix) 20 mg EVERY 12 HOURS IV 03/12/19 09:00 04/11/19 08:59 03/14/19 09:13 Heparin Sodium (Porcine) (Heparin 5000 units/ml) 5,000 units EVERY 12 HOURS SUBQ 03/11/19 09:00 04/10/19 08:59 03/14/19 09:16 Insulin Aspart (NovoLOG) BEFORE MEALS AND HS SUBQ 03/11/19 21:00 04/10/19 20:59 03/13/19 21:41 Lisinopril (ZestriL) 10 mg DAILY ORAL 03/12/19 10:30 04/11/19 10:29 03/14/19 09:13 Nitroglycerin (Ntg) 0.4 mg Q5M X 3 DOSES PRN SL Prn Chest Pain 03/10/19 22:30 04/09/19 22:29 Ondansetron HCl (Zofran) 4 mg Q6H PRN IVP Nausea & Vomiting 03/10/19 22:30 04/09/19 22:29 Polyethylene Glycol (Miralax) 17 gm HSPRN PRN ORAL Constipation 03/10/19 22:30 04/09/19 22:29 Quetiapine Fumarate (SEROqueL) 25 mg Q12HR ORAL 03/12/19 09:00 04/11/19 08:59 03/14/19 09:13 Temazepam (Restoril) 15 mg HSPRN PRN ORAL Insomnia 03/10/19 22:30 03/17/19 22:29 03/11/19 20:58 Marc Jeffries MD Mar 14, 2019 10:52
--- NOTE | 2019-03-14 11:38 | NUR ---
RD ASSESSMENT & RECOMMENDATIONS SEE CARE ACTIVITY FOR COMPLETE ASSESSMENT DAILY ESTIMATED NEEDS: Needs based on DM, CHF/ 72kg abw 25-30 kcals/kg 6896-2375 total kcals 1-1.5 g protein/kg 72-108 g total protein 20-22 mL/kg 7645-3908 total fluid mLs NUTRITION DIAGNOSIS: Altered nutrition related lab values R/T DM, CHF as evidenced by admitted w/ hypoglycemia w/ BG value of 26, now improved w/ POC ([phone] 114), elev BNP (7204), on diuretics. CURRENT DIET:CCHO MED, CARDIAC, liquify pureed, NTL PO DIET RECOMMENDATIONS: CCHO MED, LOW NA/ texture per [employer] ADDITIONAL RECOMMENDATIONS: * Calibrated bedscale wt for accurate CBW -> daily wt monitoring given CHF dx, on diuretics * Monitor for hypoglycemia * Add Glucerna TID in b/w meals (approximately 1.7 carb serving each) * Monitor PO intake closely: poor/variable upon adm, improving * Monitor lytes closely w/ lasix, replete as needed
--- NOTE | 2019-03-14 11:47 | NUR ---
S[employer] [employer]MIN[employer] SH[employer] SI: PERSISTENT HYPOGLYCEMIA T. 98.5 HR 68 RR 20 B/P 141/83 2L NC BNP 7204 GLU 105 IS: LASIX IV Q 8 HEPARIN SUBC ALB HHN PT EVAL STEP DOWN STATUS
--- NOTE | 2019-03-14 11:58 | NUR ---
NURSE NOTES: Acute DVT on left upper arm and superficial venous thrombosis on right arm reported to Dr. Jeffries. Received order to start heparin drip per protocol, no bolus.
[2019-03-14 12:00] VITALS: BP 118/70
[2019-03-14] MEDS ORDERED: Heparin 25,000u/D5W 500ml 500 ML IV SCH (12:21)
[2019-03-14 12:53] LABS: BASOPHILS % (AUTO) 1.3 % (0.0-2.0); EOSINOPHILS % (AUTO) 3.4 % (0.0-3.0); HEMOGLOBIN 11.2 G/DL (14.2-18.0); LYMPHOCYTES % (AUTO) 21.4 % (20.0-45.0); MEAN CORPUSCULAR VOLUME 82 FL (80-99); MONOCYTES % (AUTO) 10.9 % (1.0-10.0); PLATELET COUNT 170 K/UL (150-450); RED BLOOD COUNT 4.39 M/UL (4.70-6.10); WHITE BLOOD COUNT 6.5 K/UL (4.8-10.8)
--- NOTE | 2019-03-14 14:05 | Diagnostic Imaging Report ---
Indication: Shortness of breath Technique: One view of the chest Comparison: 03/13/2019 Findings: The heart is enlarged. There is bilateral interstitial and airspace edema and bilateral pleural effusions. Left chest AICD is again noted. Findings are unchanged Impression: Unchanged, over one day, findings as above.
--- NOTE | 2019-03-14 14:07 | NUR ---
SPEECH PATHOLOGY: BEDSIDE SWALLOW EVALUATION COMPLETED POST CHART REVIEW AND D/W JULIÁN BALDERRAMA. DYSPHAGIA RISK FACTORS: SHORTNESS OF BREATH, DECREASED MENTATION/ENCEPHALOPATHY, REDUCED SITTING TOLERANCE. LOSS OF APPETITE/GENERAL WEAKNESS, INITIAL IMPRESSION: MILD/MOD OROPHARYNGEAL DYSPHAGIA SLOWED MASTICATION TIME, DELAYED ORAL PREPARATION/ORAL TRANSIT AND INITIATION OF PHARYNGEAL PHASE OF SWALLOW. DECREASED LARYNGEAL MOVEMENT RECOMMENDATIONS: 1. CONTINUE MODIFIED TEXTURE DIET: PUREE/NECTAR THICK LIQUIDS 2. CRUSH CRUSHABLE MEDS/PRESENT IN PUREE 3. TOTAL ASSIST WITH MEALS 4. IF SHORT OF BREATH DURING THE MEAL, STOP/RELAX, THEN RESUME MEAL. 5. ST TO FOLLOW FOR DIET TOLERANCE, VIDEO SWALLOW STUDY IF NEEDED
[2019-03-14 16:00] VITALS: BP_SYST 113; BP_SYST 141; BP_DIAS 67; BP_DIAS 90
--- NOTE | 2019-03-14 19:00 | NUR ---
NURSE NOTES: Spoke with Aleida from pharmacy regarding timed PTT level. Pt pulled out IV line with heparin drip, unknown what time. Per Aleida, keep heparin at 18 units/kg/hr, order timed PTT for 21:45. Addendum: 03/14/19 at 1918 by TACOS HANKS RN PTT ordered for 23:45
--- NOTE | 2019-03-14 19:04 | Internal Med Progress Note ---
Subjective Date of Service: Mar 14, 2019 Physician Name Crescencio Lock Attending Physician Codey Winters MD Current Medications Medications (Trade) Dose Ordered Sig/Raymond Route PRN Reason Start Time Stop Time Status Last Admin Dose Admin Acetaminophen (Tylenol) 650 mg Q4H PRN ORAL fever 03/10/19 22:30 04/09/19 22:29 Albuterol/ Ipratropium (Albuterol/ Ipratropium) 3 ml EVERY 4 HOURS PRN HHN Shortness of Breath 03/10/19 22:30 03/15/19 22:29 03/13/19 04:41 Aspirin (ASA) 81 mg DAILY ORAL 03/11/19 09:00 04/10/19 08:59 03/14/19 09:13 Carvedilol (Coreg) 3.125 mg EVERY 12 HOURS ORAL 03/12/19 21:00 04/11/19 20:59 03/14/19 09:13 Clonidine HCl (Catapres Tab) 0.1 mg EVERY 4 HOURS PRN ORAL sbp more than 160 03/10/19 22:30 04/09/19 22:29 Dextrose (Dextrose 50%) 25 ml Q30M PRN IV Hypoglycemia 03/10/19 22:30 04/09/19 22:29 Dextrose (Dextrose 50%) 50 ml Q30M PRN IV Hypoglycemia 03/10/19 22:30 04/09/19 22:29 03/12/19 16:34 Furosemide (Lasix) 20 mg EVERY 8 HOURS IV 03/14/19 14:00 04/11/19 08:59 03/14/19 14:15 Heparin Sodium/ Dextrose 500 ml @ 28.08 mls/ hr ADJUST PER PROTOCOL IV 03/14/19 12:21 04/13/19 12:20 03/14/19 12:33 Insulin Aspart (NovoLOG) BEFORE MEALS AND HS SUBQ 03/11/19 21:00 04/10/19 20:59 03/14/19 17:19 Lisinopril (ZestriL) 10 mg DAILY ORAL 03/12/19 10:30 04/11/19 10:29 03/14/19 09:13 Nitroglycerin (Ntg) 0.4 mg Q5M X 3 DOSES PRN SL Prn Chest Pain 03/10/19 22:30 04/09/19 22:29 Ondansetron HCl (Zofran) 4 mg Q6H PRN IVP Nausea & Vomiting 03/10/19 22:30 04/09/19 22:29 Polyethylene Glycol (Miralax) 17 gm HSPRN PRN ORAL Constipation 03/10/19 22:30 04/09/19 22:29 Quetiapine Fumarate (SEROqueL) 25 mg Q12HR ORAL 03/12/19 09:00 04/11/19 08:59 03/14/19 09:13 Temazepam (Restoril) 15 mg HSPRN PRN ORAL Insomnia 03/10/19 22:30 03/17/19 22:29 03/11/19 20:58 Allergies: Coded Allergies: No Known Allergies (Unverified , 03/10/19) ROS Limited/Unobtainable: Yes Subjective 78 YO M admitted with altered mental status. Cover for Int Med-Dr Winters. [facility] Objective Last Vital Signs Date Time Temp Pulse Resp B/P (MAP) Pulse Ox O2 Delivery O2 Flow Rate FiO2 03/14/19 16:00 3.0 03/14/19 16:00 98.7 62 20 113/67 (82) 100 03/14/19 16:00 Nasal Cannula 03/14/19 07:30 28 Laboratory Tests Test 03/14/19 04:55 03/14/19 12:15 03/14/19 17:25 White Blood Count 6.5 K/UL (4.8-10.8) 6.5 K/UL (4.8-10.8) Red Blood Count 4.43 M/UL (4.70-6.10) L 4.39 M/UL (4.70-6.10) L Hemoglobin 11.4 G/DL (14.2-18.0) L 11.2 G/DL (14.2-18.0) L Hematocrit 36.0 % (42.0-52.0) L 36.0 % (42.0-52.0) L Mean Corpuscular Volume 81 FL (80-99) 82 FL (80-99) Mean Corpuscular Hemoglobin 25.7 PG (27.0-31.0) L 25.4 PG (27.0-31.0) L Mean Corpuscular Hemoglobin Concent 31.7 G/DL (32.0-36.0) L 31.0 G/DL (32.0-36.0) L Red Cell Distribution Width 15.0 % (11.6-14.8) H 15.0 % (11.6-14.8) H Platelet Count 180 K/UL (150-450) 170 K/UL (150-450) Mean Platelet Volume 8.5 FL (6.5-10.1) 8.1 FL (6.5-10.1) Neutrophils (%) (Auto) 61.9 % (45.0-75.0) 63.0 % (45.0-75.0) Lymphocytes (%) (Auto) 21.9 % (20.0-45.0) 21.4 % (20.0-45.0) Monocytes (%) (Auto) 12.2 % (1.0-10.0) H 10.9 % (1.0-10.0) H Eosinophils (%) (Auto) 2.6 % (0.0-3.0) 3.4 % (0.0-3.0) H Basophils (%) (Auto) 1.4 % (0.0-2.0) 1.3 % (0.0-2.0) Sodium Level 141 MMOL/L (136-145) Potassium Level 4.0 MMOL/L (3.5-5.1) Chloride Level 108 MMOL/L (98-107) H Carbon Dioxide Level 27 MMOL/L (21-32) Anion Gap 6 mmol/L (5-15) Blood Urea Nitrogen 15 mg/dL (7-18) Creatinine 1.2 MG/DL (0.55-1.30) Estimat Glomerular Filtration Rate mL/min (>60) Glucose Level 105 MG/DL (74-106) Calcium Level 8.4 MG/DL (8.5-10.1) L Total Bilirubin 1.5 MG/DL (0.2-1.0) H Direct Bilirubin 0.5 MG/DL (0.0-0.3) H Aspartate Amino Transf (AST/SGOT) 19 U/L (15-37) Alanine Aminotransferase (ALT/SGPT) 21 U/L (12-78) Alkaline Phosphatase 113 U/L (46-116) Pro-B-Type Natriuretic Peptide 7204 pg/mL (0-125) H Total Protein 6.0 G/DL (6.4-8.2) L Albumin 2.4 G/DL (3.4-5.0) L Globulin 3.6 g/dL Albumin/Globulin Ratio 0.7 (1.0-2.7) L Activated Partial Thromboplast Time 31 SEC (23-33) 32 SEC (23-33) Intake and Output 03/13/19 03/14/19 19:00 07:00 Intake Total 375 ml Output Total 2575 ml 2000 ml Balance -2200 ml -2000 ml IV Total 375 ml Output Urine Total 2575 ml 2000 ml Objective PHYSICAL EXAMINATION: GENERAL: The patient is awake, responsive, and sluggish. HEAD AND NECK: Pupils are reactive to light. Anicteric. NECK: Supple. No jugular venous distention. LUNGS: Good air entry. No wheeze or rales. Decreased air in the bases. HEART: S1, S2. Distant heart sounds. No murmur or gallops. ABDOMEN: Soft, nondistended, and nontender. Mildly obese. EXTREMITIES: No cyanosis or clubbing. Hyperpigmentation on the right lower extremity was noted and trace ankle edema. NEUROLOGIC: Cranial nerves II through XII are grossly intact. The patient is moving all the extremities spontaneously. Gait was not assessed due to the patient's status. RECTAL/GENITOURINARY: Refused and deferred. PSYCHIATRIC: Mood and affect is intact. Assessment/Plan Assessment/Plan ASSESSMENT: 1. Altered mental status, most likely secondary to toxic metabolic encephalopathy. 2. Diabetes type 2. 3. Congestive heart failure. 4. Hypertension. 5. Sick sinus syndrome status post pacemaker. 6. Obesity. PLAN: 1. Admit to [facility]. 2 Endocrinology=[facility] 3. Monitor blood glucose level closely. We will follow up with the 2D echo. 4. Resume home medication. 5. Duplex of lower extremity. 6. Discussed the case with Dr. Jeffries, Pulmonary Critical Care, as well as Cardiology consultation. 7. Code status, Full Code. Crescencio Lock MD Mar 14, 2019 19:04
--- NOTE | 2019-03-14 19:19 | NUR ---
HAND-OFF: Report given to Mili Nguyen RN. Patient asleep in bed, IV on right hand wrapped, heparin infusing at prescribed rate.
--- NOTE | 2019-03-14 19:20 | NUR ---
NURSE NOTES: Received report from JULIÁN Santos. Patient is currently resting in bed sleeping. Pt is receiving O2 via nasal cannula @ 3L/min, respirations even and unlabored with a current O2 saturation of 98%. David catheter noted and remains patent and draining yellow urine to gravity. Right hand 24g IV site noted and remains patent, intact and asymptomatic. Heparin currently infusing at 18u/kg/hr as ordered pending next ptt. Bed locked in lowest position with side rails up x 3, call light within reach and bed alarm activated. Will continue to monitor.
[2019-03-14 20:00] VITALS: BP 117/70
--- NOTE | 2019-03-14 20:42 | NUR ---
NURSE NOTES: Pt provided with a bed bath, linen change and oral care. Pt tolerated care well. Pt continues resting in bed; bed is in lowest position, safety wheels engaged, call light within reach and bed alarm activated. Will continue to monitor.
[2019-03-14] MEDS: Albuterol/Ipratropium 3ml neb HHN PRN (21:19)
[2019-03-15] VITALS: BP 127/65
[2019-03-15] MEDS: Heparin 25,000u/D5W 500ml 500 ML IV SCH ×2 (01:46→06:44)
--- NOTE | 2019-03-15 01:46 | NUR ---
NURSE NOTES: Pt's ptt came back elevated at 103; assessed patient for bleeding, none noted. Decreased rate to 16u/kg/hr as prescribed. No adverse effects noted at this time. Will continue to monitor.
[2019-03-15 04:00] VITALS: BP 111/58
--- NOTE | 2019-03-15 06:09 | General Progress Note ---
Assessment/Plan Problem List: (1) Diabetes mellitus ICD Codes: E11.9 - Type 2 diabetes mellitus without complications SNOMED: 47635245 (2) Hypoglycemia ICD Codes: E16.2 - Hypoglycemia, unspecified SNOMED: 687507613 (3) Acute CHF ICD Codes: I50.9 - Heart failure, unspecified SNOMED: 63245912, 266785635, 289089910 (4) Acute metabolic encephalopathy ICD Codes: G93.41 - Metabolic encephalopathy SNOMED: 84738891, 531345973 (5) Cardiac LV ejection fraction 30-35% ICD Codes: R94.30 - Abnormal result of cardiovascular function study, unspecified SNOMED: 97476668, 573151528 (6) Pacemaker ICD Codes: Z95.0 - Presence of cardiac pacemaker SNOMED: 789470436 Assessment/Plan: no need for basal insulin Novolog sliding scale ac / hs hypoglycemia protocol in order Subjective ROS Limited/Unobtainable: Yes Allergies: Coded Allergies: No Known Allergies (Unverified , 03/10/19) Subjective events noted no recurrence of hypoglycemia Item Value Date Time Bedside Blood Glucose 70 mg/dl 03/14/19 2100 Bedside Blood Glucose 246 mg/dl H 03/14/19 1719 Bedside Blood Glucose 179 mg/dl H 03/14/19 1400 Objective Last 24 Hour Vital Signs Date Time Temp Pulse Resp B/P (MAP) Pulse Ox O2 Delivery O2 Flow Rate FiO2 03/15/19 04:00 Nasal Cannula 3.0 03/15/19 04:00 3.0 03/15/19 04:00 97.9 63 16 111/58 (75) 96 03/15/19 03:34 60 03/15/19 00:00 98.1 66 16 127/65 (85) 100 03/15/19 00:00 Nasal Cannula 3.0 03/14/19 23:27 67 03/14/19 21:20 64 18 98 Nasal Cannula 3.0 32 62 18 95 03/14/19 21:19 95 Nasal Cannula 2.0 28 03/14/19 20:54 65 117/70 03/14/19 20:00 63 03/14/19 20:00 3.0 03/14/19 20:00 Nasal Cannula 3.0 03/14/19 20:00 97.6 65 18 117/70 (86) 99 03/14/19 16:00 3.0 03/14/19 16:00 98.7 62 20 113/67 (82) 100 03/14/19 16:00 Nasal Cannula 3.0 03/14/19 15:07 63 03/14/19 12:33 62 03/14/19 12:00 Nasal Cannula 3.0 03/14/19 12:00 3.0 03/14/19 12:00 97.5 63 20 118/70 (86) 99 03/14/19 09:13 68 141/83 03/14/19 09:13 141/83 03/14/19 08:00 98.5 68 20 141/83 (102) 94 03/14/19 08:00 3.0 03/14/19 08:00 Nasal Cannula 3.0 03/14/19 07:30 96 Nasal Cannula 2.0 28 03/14/19 07:24 70 Intake and Output 03/14/19 03/15/19 18:59 06:59 Intake Total 146.016 ml 323.284 ml Output Total 1900 ml 1400 ml Balance -1753.984 ml -1076.716 ml IV Total 146.016 ml 323.284 ml Output Urine Total 1900 ml 1400 ml # Voids 2 Laboratory Tests 03/14/19 12:15: White Blood Count 6.5, Red Blood Count 4.39L, Hemoglobin 11.2L, Hematocrit 36.0L , Mean Corpuscular Volume 82, Mean Corpuscular Hemoglobin 25.4L, Mean Corpuscular Hemoglobin Concent 31.0L, Red Cell Distribution Width 15.0H, Platelet Count 170, Mean Platelet Volume 8.1, Neutrophils (%) (Auto) 63.0, Lymphocytes (%) (Auto) 21.4, Monocytes (%) (Auto) 10.9H, Eosinophils (%) (Auto) 3.4H, Basophils (%) (Auto) 1.3, Activated Partial Thromboplast Time 31 03/14/19 17:25: Activated Partial Thromboplast Time 32 03/14/19 23:45: Activated Partial Thromboplast Time 103H Height (Feet): 5 Height (Inches): 8.00 Weight (Pounds): 173 General Appearance: no apparent distress Neck: normal alignment Cardiovascular: normal rate Respiratory/Chest: lungs clear Abdomen: normal bowel sounds Objective Current Medications Medications (Trade) Dose Ordered Sig/Raymond Route PRN Reason Start Time Stop Time Status Last Admin Dose Admin Acetaminophen (Tylenol) 650 mg Q4H PRN ORAL fever 03/10/19 22:30 04/09/19 22:29 Albuterol/ Ipratropium (Albuterol/ Ipratropium) 3 ml EVERY 4 HOURS PRN HHN Shortness of Breath 03/10/19 22:30 03/15/19 22:29 03/14/19 21:19 Aspirin (ASA) 81 mg DAILY ORAL 03/11/19 09:00 04/10/19 08:59 03/14/19 09:13 Carvedilol (Coreg) 3.125 mg EVERY 12 HOURS ORAL 03/12/19 21:00 04/11/19 20:59 03/14/19 20:54 Clonidine HCl (Catapres Tab) 0.1 mg EVERY 4 HOURS PRN ORAL sbp more than 160 03/10/19 22:30 04/09/19 22:29 Dextrose (Dextrose 50%) 25 ml Q30M PRN IV Hypoglycemia 03/10/19 22:30 04/09/19 22:29 Dextrose (Dextrose 50%) 50 ml Q30M PRN IV Hypoglycemia 03/10/19 22:30 04/09/19 22:29 03/12/19 16:34 Furosemide (Lasix) 20 mg EVERY 8 HOURS IV 03/14/19 14:00 04/11/19 08:59 03/15/19 05:29 Heparin Sodium/ Dextrose 500 ml @ 24.96 mls/ hr ADJUST PER PROTOCOL IV 03/15/19 00:45 04/13/19 12:20 03/15/19 01:46 Insulin Aspart (NovoLOG) BEFORE MEALS AND HS SUBQ 03/11/19 21:00 04/10/19 20:59 03/14/19 17:19 Lisinopril (ZestriL) 10 mg DAILY ORAL 03/12/19 10:30 04/11/19 10:29 03/14/19 09:13 Nitroglycerin (Ntg) 0.4 mg Q5M X 3 DOSES PRN SL Prn Chest Pain 03/10/19 22:30 04/09/19 22:29 Ondansetron HCl (Zofran) 4 mg Q6H PRN IVP Nausea & Vomiting 03/10/19 22:30 04/09/19 22:29 Polyethylene Glycol (Miralax) 17 gm HSPRN PRN ORAL Constipation 03/10/19 22:30 04/09/19 22:29 Quetiapine Fumarate (SEROqueL) 25 mg Q12HR ORAL 03/12/19 09:00 04/11/19 08:59 03/14/19 20:54 Temazepam (Restoril) 15 mg HSPRN PRN ORAL Insomnia 03/10/19 22:30 03/17/19 22:29 03/11/19 20:58 Ralf Rousseau MD Mar 15, 2019 06:09
[2019-03-15] MEDS: NovoLOG Insulin Flexpen SUBQ SCH ×4 (06:30→21:13)
--- NOTE | 2019-03-15 07:10 | NUR ---
HAND-OFF: Report given to JULIÁN Xiao. Pt remains stable at this time.
--- NOTE | 2019-03-15 07:10 | NUR ---
NURSE NOTES: Received bedside report from Wilma GALLEGO. Pt. in bed, sleeping but arousable. at bedside. No sign of distress. On 3LPM via NC of O2. No grimacing noted. Cont on heparin drip at 16u/kg/hr. No bleeding noted. IV at right hand #24g in placed. Bed in low position, locked. Call light within reach. Will cont. to monitor.
[2019-03-15 07:21] LABS: BASOPHILS % (AUTO) 1.1 % (0.0-2.0); EOSINOPHILS % (AUTO) 2.8 % (0.0-3.0); HEMOGLOBIN 11.7 G/DL (14.2-18.0); LYMPHOCYTES % (AUTO) 19.6 % (20.0-45.0); MEAN CORPUSCULAR VOLUME 81 FL (80-99); MONOCYTES % (AUTO) 10.8 % (1.0-10.0); NEUTROPHILS % (AUTO) 65.6 % (45.0-75.0); PLATELET COUNT 181 K/UL (150-450); RED BLOOD COUNT 4.56 M/UL (4.70-6.10); WHITE BLOOD COUNT 6.3 K/UL (4.8-10.8)
[2019-03-15 08:00] VITALS: BP 120/65
[2019-03-15] MEDS ORDERED: Heparin 25,000u/D5W 500ml 500 ML IV SCH ×2 (08:00)
[2019-03-15 08:08] LABS: ALANINE AMINOTRANSFERASE 18 U/L (12-78); ALBUMIN 2.3 G/DL (3.4-5.0); ALBUMIN/GLOBULIN RATIO 0.6 (1.0-2.7); ALKALINE PHOSPHATASE 115 U/L (46-116); ANION GAP 8 mmol/L (5-15); ASPARTATE AMINO TRANSFERASE 14 U/L (15-37); BILIRUBIN,TOTAL 1.1 MG/DL (0.2-1.0); BLOOD UREA NITROGEN 15 mg/dL (7-18); CALCIUM 8.4 MG/DL (8.5-10.1); CARBON DIOXIDE 26 MMOL/L (21-32); CHLORIDE 106 MMOL/L (98-107); CREATININE 1.1 MG/DL (0.55-1.30); POTASSIUM 3.5 MMOL/L (3.5-5.1); SODIUM 140 MMOL/L (136-145)
[2019-03-15 08:14] LABS: BILIRUBIN,DIRECT 0.4 MG/DL (0.0-0.3)
[2019-03-15] MEDS: Aspirin Baby 81mg ORAL SCH (09:51)
[2019-03-15] MEDS: Lisinopril 10mg tab ORAL SCH (09:51)
--- NOTE | 2019-03-15 10:22 | Pulmonology Progress Note ---
Assessment/Plan Problems: (1) Acute DVT (deep venous thrombosis) (2) Hypoglycemia (3) Acute CHF (4) Acute metabolic encephalopathy (5) Cardiac LV ejection fraction 30-35% (6) Pacemaker (7) Diabetes mellitus Assessment/Plan swallow study pending more alert agitated at times Echo reviewed, Lasix, TID, diuresing very well cxr reviewed today, still lots of edema cardio starte start Coreg and Jose A inhibitors add seroquel dvt prophylaxis check BNP in am Subjective Allergies: Coded Allergies: No Known Allergies (Unverified , 03/10/19) Objective Last 24 Hour Vital Signs Date Time Temp Pulse Resp B/P (MAP) Pulse Ox O2 Delivery O2 Flow Rate FiO2 03/15/19 09:51 62 120/65 03/15/19 09:51 120/65 03/15/19 08:00 98.8 62 17 120/65 (83) 100 03/15/19 07:48 93 Nasal Cannula 2.0 28 03/15/19 04:00 Nasal Cannula 3.0 03/15/19 04:00 3.0 03/15/19 04:00 97.9 63 16 111/58 (75) 96 03/15/19 03:34 60 03/15/19 00:00 98.1 66 16 127/65 (85) 100 03/15/19 00:00 Nasal Cannula 3.0 03/14/19 23:27 67 03/14/19 21:20 64 18 98 Nasal Cannula 3.0 32 62 18 95 03/14/19 21:19 95 Nasal Cannula 2.0 28 03/14/19 20:54 65 117/70 03/14/19 20:00 63 03/14/19 20:00 3.0 03/14/19 20:00 Nasal Cannula 3.0 03/14/19 20:00 97.6 65 18 117/70 (86) 99 03/14/19 16:00 3.0 03/14/19 16:00 98.7 62 20 113/67 (82) 100 03/14/19 16:00 Nasal Cannula 3.0 03/14/19 15:07 63 03/14/19 12:33 62 03/14/19 12:00 Nasal Cannula 3.0 03/14/19 12:00 3.0 03/14/19 12:00 97.5 63 20 118/70 (86) 99 Intake and Output 03/14/19 03/15/19 19:00 07:00 Intake Total 174.096 ml 313.092 ml Output Total 1900 ml 1400 ml Balance -1725.904 ml -1086.908 ml IV Total 174.096 ml 313.092 ml Output Urine Total 1900 ml 1400 ml # Voids 2 Laboratory Tests 03/14/19 12:15: White Blood Count 6.5, Red Blood Count 4.39L, Hemoglobin 11.2L, Hematocrit 36.0L , Mean Corpuscular Volume 82, Mean Corpuscular Hemoglobin 25.4L, Mean Corpuscular Hemoglobin Concent 31.0L, Red Cell Distribution Width 15.0H, Platelet Count 170, Mean Platelet Volume 8.1, Neutrophils (%) (Auto) 63.0, Lymphocytes (%) (Auto) 21.4, Monocytes (%) (Auto) 10.9H, Eosinophils (%) (Auto) 3.4H, Basophils (%) (Auto) 1.3, Activated Partial Thromboplast Time 31 03/14/19 17:25: Activated Partial Thromboplast Time 32 03/14/19 23:45: Activated Partial Thromboplast Time 103H 03/15/19 06:57: White Blood Count 6.3, Red Blood Count 4.56L, Hemoglobin 11.7L, Hematocrit 37.0L , Mean Corpuscular Volume 81, Mean Corpuscular Hemoglobin 25.7L, Mean Corpuscular Hemoglobin Concent 31.7L, Red Cell Distribution Width 15.0H, Platelet Count 181, Mean Platelet Volume 8.5, Neutrophils (%) (Auto) 65.6, Lymphocytes (%) (Auto) 19.6L, Monocytes (%) (Auto) 10.8H, Eosinophils (%) (Auto ) 2.8, Basophils (%) (Auto) 1.1, Activated Partial Thromboplast Time 104H, Sodium Level 140, Potassium Level 3.5, Chloride Level 106, Carbon Dioxide Level 26, Anion Gap 8, Blood Urea Nitrogen 15, Creatinine 1.1, Estimat Glomerular Filtration Rate , Glucose Level 88, Calcium Level 8.4L, Total Bilirubin 1.1H, Direct Bilirubin 0.4H, Aspartate Amino Transf (AST/SGOT) 14L, Alanine Aminotransferase (ALT/SGPT) 18, Alkaline Phosphatase 115, Pro-B-Type Natriuretic Peptide 7550H, Total Protein 6.0L, Albumin 2.3L, Globulin 3.7, Albumin/Globulin Ratio 0.6L Current Medications Medications (Trade) Dose Ordered Sig/Raymond Route PRN Reason Start Time Stop Time Status Last Admin Dose Admin Acetaminophen (Tylenol) 650 mg Q4H PRN ORAL fever 03/10/19 22:30 04/09/19 22:29 Albuterol/ Ipratropium (Albuterol/ Ipratropium) 3 ml EVERY 4 HOURS PRN HHN Shortness of Breath 03/10/19 22:30 03/15/19 22:29 03/14/19 21:19 Aspirin (ASA) 81 mg DAILY ORAL 03/11/19 09:00 04/10/19 08:59 03/15/19 09:51 Carvedilol (Coreg) 3.125 mg EVERY 12 HOURS ORAL 03/12/19 21:00 04/11/19 20:59 03/15/19 09:51 Clonidine HCl (Catapres Tab) 0.1 mg EVERY 4 HOURS PRN ORAL sbp more than 160 03/10/19 22:30 04/09/19 22:29 Dextrose (Dextrose 50%) 25 ml Q30M PRN IV Hypoglycemia 03/10/19 22:30 04/09/19 22:29 Dextrose (Dextrose 50%) 50 ml Q30M PRN IV Hypoglycemia 03/10/19 22:30 04/09/19 22:29 03/12/19 16:34 Furosemide (Lasix) 20 mg EVERY 8 HOURS IV 03/14/19 14:00 04/11/19 08:59 03/15/19 05:29 Heparin Sodium/ Dextrose 500 ml @ 21.252 mls/ hr ADJUST PER PROTOCOL IV 03/15/19 08:00 04/14/19 07:59 03/15/19 08:23 Insulin Aspart (NovoLOG) BEFORE MEALS AND HS SUBQ 03/11/19 21:00 04/10/19 20:59 03/14/19 17:19 Lisinopril (ZestriL) 10 mg DAILY ORAL 03/12/19 10:30 04/11/19 10:29 03/15/19 09:51 Nitroglycerin (Ntg) 0.4 mg Q5M X 3 DOSES PRN SL Prn Chest Pain 03/10/19 22:30 04/09/19 22:29 Ondansetron HCl (Zofran) 4 mg Q6H PRN IVP Nausea & Vomiting 03/10/19 22:30 04/09/19 22:29 Polyethylene Glycol (Miralax) 17 gm HSPRN PRN ORAL Constipation 03/10/19 22:30 04/09/19 22:29 Quetiapine Fumarate (SEROqueL) 25 mg Q12HR ORAL 03/12/19 09:00 04/11/19 08:59 03/15/19 09:51 Temazepam (Restoril) 15 mg HSPRN PRN ORAL Insomnia 03/10/19 22:30 03/17/19 22:29 03/11/19 20:58 Marc Jeffries MD Mar 15, 2019 10:22
--- NOTE | 2019-03-15 10:49 | NUR ---
RADIOLOGY DEPT., CHEST X-RAY DONE.-P.DYE
--- NOTE | 2019-03-15 11:00 | NUR ---
PT NOTE Received MD order for PT evaluation. Ninoska GALLEGO requesting to defer PT evaluation due to heparin drip. Will follow up tomorrow.
--- NOTE | 2019-03-15 11:31 | Diagnostic Imaging Report ---
Indication: Shortness of breath Technique: One view of the chest Comparison: 03/14/2019 Findings: There is a left chest biventricular pacemaker again demonstrated. Diffuse interstitial and airspace edema, cardiomegaly, left-sided pleural effusion are unchanged. There appears to be decreased right pleural fluid Impression: Slightly improved right pleural effusion, over one day. Otherwise stable findings as described
[2019-03-15 12:00] VITALS: BP 91/53
[2019-03-15] MEDS ORDERED: Heparin1,000 units/500ml Premix(Conc:2 units/ml) IV ONE (14:15)
[2019-03-15] MEDS ORDERED: Lidocaine 1% Plain 30 ml INJ ONE (14:15)
--- NOTE | 2019-03-15 14:30 | NUR ---
NURSE NOTES: Cont. same dose of Heparin drip per pharmacy and PTT in 0400. Timed.
[2019-03-15 16:00] VITALS: BP 146/70
[2019-03-15] MEDS ORDERED: NS 275ml ONE (16:17)
--- NOTE | 2019-03-15 16:45 | Internal Med Progress Note ---
Subjective Date of Service: Mar 15, 2019 Physician Name Crescencio Lock Attending Physician Codey Winters MD Current Medications Medications (Trade) Dose Ordered Sig/Raymond Route PRN Reason Start Time Stop Time Status Last Admin Dose Admin Acetaminophen (Tylenol) 650 mg Q4H PRN ORAL fever 03/10/19 22:30 04/09/19 22:29 Albuterol/ Ipratropium (Albuterol/ Ipratropium) 3 ml EVERY 4 HOURS PRN HHN Shortness of Breath 03/10/19 22:30 03/15/19 22:29 03/14/19 21:19 Aspirin (ASA) 81 mg DAILY ORAL 03/11/19 09:00 04/10/19 08:59 03/15/19 09:51 Carvedilol (Coreg) 3.125 mg EVERY 12 HOURS ORAL 03/12/19 21:00 04/11/19 20:59 03/15/19 09:51 Chlorhexidine Gluconate (Tayler-Hex 2%) 1 applic DAILY@2000 TOPIC 03/15/19 20:00 04/14/19 19:59 Clonidine HCl (Catapres Tab) 0.1 mg EVERY 4 HOURS PRN ORAL sbp more than 160 03/10/19 22:30 04/09/19 22:29 Dextrose (Dextrose 50%) 25 ml Q30M PRN IV Hypoglycemia 03/10/19 22:30 04/09/19 22:29 Dextrose (Dextrose 50%) 50 ml Q30M PRN IV Hypoglycemia 03/10/19 22:30 04/09/19 22:29 03/12/19 16:34 Furosemide (Lasix) 20 mg EVERY 8 HOURS IV 03/14/19 14:00 04/11/19 08:59 03/15/19 14:00 Heparin Sodium/ Dextrose 500 ml @ 21.252 mls/ hr ADJUST PER PROTOCOL IV 03/15/19 08:00 04/14/19 07:59 03/15/19 08:23 Insulin Aspart (NovoLOG) BEFORE MEALS AND HS SUBQ 03/11/19 21:00 04/10/19 20:59 03/14/19 17:19 Lisinopril (ZestriL) 10 mg DAILY ORAL 03/12/19 10:30 04/11/19 10:29 03/15/19 09:51 Nitroglycerin (Ntg) 0.4 mg Q5M X 3 DOSES PRN SL Prn Chest Pain 03/10/19 22:30 04/09/19 22:29 Ondansetron HCl (Zofran) 4 mg Q6H PRN IVP Nausea & Vomiting 03/10/19 22:30 04/09/19 22:29 Polyethylene Glycol (Miralax) 17 gm HSPRN PRN ORAL Constipation 03/10/19 22:30 04/09/19 22:29 Quetiapine Fumarate (SEROqueL) 25 mg Q12HR ORAL 03/12/19 09:00 04/11/19 08:59 03/15/19 09:51 Temazepam (Restoril) 15 mg HSPRN PRN ORAL Insomnia 03/10/19 22:30 03/17/19 22:29 03/11/19 20:58 Allergies: Coded Allergies: No Known Allergies (Unverified , 03/10/19) ROS Limited/Unobtainable: Yes Subjective 78 YO M admitted with altered mental status. Cover for Int Med-Dr Winters. JOSE L Objective Last Vital Signs Date Time Temp Pulse Resp B/P (MAP) Pulse Ox O2 Delivery O2 Flow Rate FiO2 03/15/19 12:00 3.0 03/15/19 12:00 Nasal Cannula 03/15/19 12:00 98.8 60 18 91/53 (66) 98 03/15/19 07:48 28 Laboratory Tests Test 03/14/19 17:25 03/14/19 23:45 03/15/19 06:57 03/15/19 14:10 Activated Partial Thromboplast Time 32 SEC (23-33) 103 SEC (23-33) H 104 SEC (23-33) H 68 SEC (23-33) H White Blood Count 6.3 K/UL (4.8-10.8) Red Blood Count 4.56 M/UL (4.70-6.10) L Hemoglobin 11.7 G/DL (14.2-18.0) L Hematocrit 37.0 % (42.0-52.0) L Mean Corpuscular Volume 81 FL (80-99) Mean Corpuscular Hemoglobin 25.7 PG (27.0-31.0) L Mean Corpuscular Hemoglobin Concent 31.7 G/DL (32.0-36.0) L Red Cell Distribution Width 15.0 % (11.6-14.8) H Platelet Count 181 K/UL (150-450) Mean Platelet Volume 8.5 FL (6.5-10.1) Neutrophils (%) (Auto) 65.6 % (45.0-75.0) Lymphocytes (%) (Auto) 19.6 % (20.0-45.0) L Monocytes (%) (Auto) 10.8 % (1.0-10.0) H Eosinophils (%) (Auto) 2.8 % (0.0-3.0) Basophils (%) (Auto) 1.1 % (0.0-2.0) Sodium Level 140 MMOL/L (136-145) Potassium Level 3.5 MMOL/L (3.5-5.1) Chloride Level 106 MMOL/L (98-107) Carbon Dioxide Level 26 MMOL/L (21-32) Anion Gap 8 mmol/L (5-15) Blood Urea Nitrogen 15 mg/dL (7-18) Creatinine 1.1 MG/DL (0.55-1.30) Estimat Glomerular Filtration Rate mL/min (>60) Glucose Level 88 MG/DL (74-106) Calcium Level 8.4 MG/DL (8.5-10.1) L Total Bilirubin 1.1 MG/DL (0.2-1.0) H Direct Bilirubin 0.4 MG/DL (0.0-0.3) H Aspartate Amino Transf (AST/SGOT) 14 U/L (15-37) L Alanine Aminotransferase (ALT/SGPT) 18 U/L (12-78) Alkaline Phosphatase 115 U/L (46-116) Pro-B-Type Natriuretic Peptide 7550 pg/mL (0-125) H Total Protein 6.0 G/DL (6.4-8.2) L Albumin 2.3 G/DL (3.4-5.0) L Globulin 3.7 g/dL Albumin/Globulin Ratio 0.6 (1.0-2.7) L Intake and Output 03/14/19 03/15/19 19:00 07:00 Intake Total 174.096 ml 313.092 ml Output Total 1900 ml 1400 ml Balance -1725.904 ml -1086.908 ml IV Total 174.096 ml 313.092 ml Output Urine Total 1900 ml 1400 ml # Voids 2 Objective PHYSICAL EXAMINATION: GENERAL: The patient is awake, responsive, and sluggish. HEAD AND NECK: Pupils are reactive to light. Anicteric. NECK: Supple. No jugular venous distention. LUNGS: Good air entry. No wheeze or rales. Decreased air in the bases. HEART: S1, S2. Distant heart sounds. No murmur or gallops. ABDOMEN: Soft, nondistended, and nontender. Mildly obese. EXTREMITIES: No cyanosis or clubbing. Hyperpigmentation on the right lower extremity was noted and trace ankle edema. NEUROLOGIC: Cranial nerves II through XII are grossly intact. The patient is moving all the extremities spontaneously. Gait was not assessed due to the patient's status. RECTAL/GENITOURINARY: Refused and deferred. PSYCHIATRIC: Mood and affect is intact. Assessment/Plan Assessment/Plan ASSESSMENT: 1. Altered mental status, most likely secondary to toxic metabolic encephalopathy. 2. Diabetes type 2. 3. Congestive heart failure. 4. Hypertension. 5. Sick sinus syndrome status post pacemaker. 6. Obesity. PLAN: 1. Admit to [facility]. 2 Endocrinology=[facility] 3. Monitor blood glucose level closely. Novolog sliding scale 4. Resume home medication. 5. Duplex of lower extremity. 6. Discussed the case with Dr. Jeffries, Pulmonary Critical Care, as well as Cardiology consultation. 7. Code status, Full Code. Crescencio Lock MD Mar 15, 2019 16:45
--- NOTE | 2019-03-15 19:51 | NUR ---
HAND-OFF: Report given to Amari GALLEGO. Pt. remain stable. Family at bedside.
[2019-03-15 20:00] VITALS: BP 114/65
[2019-03-15] MEDS ORDERED: Dyna-Hex 2% Top Sol 2oz TOPIC SCH (20:00)
--- NOTE | 2019-03-15 20:00 | NUR ---
NURSE NOTES: Received report from JULIÁN Xiao. Pt is resting on the bed and awake and confused and slight agitated. Family; sister stays at bedside. On O2 3L via nasal cannula SaO2 96% noted. Pt pulled out of IV and reinserted IV. Reminded Pt do not remove IV line but he didn't understanding at this time. On heparin drip 14U/Kg/Hr and no active bleeding noted. On David catha and patent and drainage well. On Tele monitor with V-paced and HR: 61's. Denied pain at this time. No open wound noted but multiple ecchymosis and both arm edema noted. Pt scheduled PICC insertion tomorrow. Will continue to monitor any change of condition and continue to care plan.
--- NOTE | 2019-03-15 20:43 | Cardiology Progress Note ---
Assessment/Plan Assessment/Plan 1. Hypoglycemia. 2. Diabetes mellitus. 3. Medication noncompliance. 4. Reported history of sick sinus syndrome, status post pacemaker implantation. 5. Reported history of congestive heart failure. 6. Cardiomyopathy. 7. Mitral regurgitation. 8. Abnormal cardiac enzymes 9. axilalry vein dvt continue diuretics trop without a peak or susana , will follow trail cxr personally reviewed off ivf ekg noted tele reviewed Subjective Cardiovascular: Denies: chest pain, lightheadedness, palpitations Respiratory: Reports: cough; Denies: shortness of breath Gastrointestinal/Abdominal: Denies: abdominal pain Genitourinary: Denies: burning Subjective dizzy Objective Last 24 Hour Vital Signs Date Time Temp Pulse Resp B/P (MAP) Pulse Ox O2 Delivery O2 Flow Rate FiO2 03/15/19 16:00 98.6 101 19 146/70 (95) 97 03/15/19 16:00 3.0 03/15/19 16:00 Nasal Cannula 3.0 03/15/19 15:26 62 03/15/19 12:00 3.0 03/15/19 12:00 Nasal Cannula 3.0 03/15/19 12:00 98.8 60 18 91/53 (66) 98 03/15/19 11:38 60 03/15/19 09:51 62 120/65 03/15/19 09:51 120/65 03/15/19 08:00 3.0 03/15/19 08:00 98.8 62 17 120/65 (83) 100 03/15/19 08:00 Nasal Cannula 3.0 03/15/19 07:59 61 03/15/19 07:48 93 Nasal Cannula 2.0 28 03/15/19 04:00 Nasal Cannula 3.0 03/15/19 04:00 3.0 03/15/19 04:00 97.9 63 16 111/58 (75) 96 03/15/19 03:34 60 03/15/19 00:00 98.1 66 16 127/65 (85) 100 03/15/19 00:00 Nasal Cannula 3.0 03/14/19 23:27 67 03/14/19 21:20 64 18 98 Nasal Cannula 3.0 32 62 18 95 03/14/19 21:19 95 Nasal Cannula 2.0 28 03/14/19 20:54 65 117/70 General Appearance: no apparent distress, alert Cardiovascular: normal rate Respiratory/Chest: crackles/rales, rhonchi - left Abdomen: normal bowel sounds, non tender, soft Extremities: no swelling Intake and Output 03/14/19 03/15/19 19:00 07:00 Intake Total 174.096 ml 313.092 ml Output Total 1900 ml 1400 ml Balance -1725.904 ml -1086.908 ml IV Total 174.096 ml 313.092 ml Output Urine Total 1900 ml 1400 ml # Voids 2 Laboratory Tests Test 03/14/19 23:45 03/15/19 06:57 03/15/19 14:10 Activated Partial Thromboplast Time 103 SEC (23-33) H 104 SEC (23-33) H 68 SEC (23-33) H White Blood Count 6.3 K/UL (4.8-10.8) Red Blood Count 4.56 M/UL (4.70-6.10) L Hemoglobin 11.7 G/DL (14.2-18.0) L Hematocrit 37.0 % (42.0-52.0) L Mean Corpuscular Volume 81 FL (80-99) Mean Corpuscular Hemoglobin 25.7 PG (27.0-31.0) L Mean Corpuscular Hemoglobin Concent 31.7 G/DL (32.0-36.0) L Red Cell Distribution Width 15.0 % (11.6-14.8) H Platelet Count 181 K/UL (150-450) Mean Platelet Volume 8.5 FL (6.5-10.1) Neutrophils (%) (Auto) 65.6 % (45.0-75.0) Lymphocytes (%) (Auto) 19.6 % (20.0-45.0) L Monocytes (%) (Auto) 10.8 % (1.0-10.0) H Eosinophils (%) (Auto) 2.8 % (0.0-3.0) Basophils (%) (Auto) 1.1 % (0.0-2.0) Sodium Level 140 MMOL/L (136-145) Potassium Level 3.5 MMOL/L (3.5-5.1) Chloride Level 106 MMOL/L (98-107) Carbon Dioxide Level 26 MMOL/L (21-32) Anion Gap 8 mmol/L (5-15) Blood Urea Nitrogen 15 mg/dL (7-18) Creatinine 1.1 MG/DL (0.55-1.30) Estimat Glomerular Filtration Rate mL/min (>60) Glucose Level 88 MG/DL (74-106) Calcium Level 8.4 MG/DL (8.5-10.1) L Total Bilirubin 1.1 MG/DL (0.2-1.0) H Direct Bilirubin 0.4 MG/DL (0.0-0.3) H Aspartate Amino Transf (AST/SGOT) 14 U/L (15-37) L Alanine Aminotransferase (ALT/SGPT) 18 U/L (12-78) Alkaline Phosphatase 115 U/L (46-116) Pro-B-Type Natriuretic Peptide 7550 pg/mL (0-125) H Total Protein 6.0 G/DL (6.4-8.2) L Albumin 2.3 G/DL (3.4-5.0) L Globulin 3.7 g/dL Albumin/Globulin Ratio 0.6 (1.0-2.7) L Rhett Kennedy MD Mar 15, 2019 20:43
[2019-03-16] VITALS: BP 104/60
[2019-03-16 04:00] VITALS: BP 120/60
[2019-03-16 05:05] LABS: EOSINOPHILS % (AUTO) 3.8 % (0.0-3.0); HEMATOCRIT 36.5 % (42.0-52.0); HEMOGLOBIN 11.4 G/DL (14.2-18.0); MEAN CORPUSCULAR VOLUME 81 FL (80-99); MONOCYTES % (AUTO) 12.2 % (1.0-10.0); NEUTROPHILS % (AUTO) 52.9 % (45.0-75.0); PLATELET COUNT 188 K/UL (150-450); RED BLOOD COUNT 4.48 M/UL (4.70-6.10); RED CELL DISTRIBUTION WIDTH 14.9 % (11.6-14.8); WHITE BLOOD COUNT 5.7 K/UL (4.8-10.8)
[2019-03-16 05:35] LABS: ALANINE AMINOTRANSFERASE 13 U/L (12-78); ALBUMIN 2.2 G/DL (3.4-5.0); ALBUMIN/GLOBULIN RATIO 0.6 (1.0-2.7); ALKALINE PHOSPHATASE 107 U/L (46-116); ANION GAP 5 mmol/L (5-15); ASPARTATE AMINO TRANSFERASE 14 U/L (15-37); BILIRUBIN,TOTAL 0.8 MG/DL (0.2-1.0); BLOOD UREA NITROGEN 17 mg/dL (7-18); CALCIUM 8.5 MG/DL (8.5-10.1); CARBON DIOXIDE 30 MMOL/L (21-32); CHLORIDE 106 MMOL/L (98-107); CREATININE 1.1 MG/DL (0.55-1.30); POTASSIUM 3.6 MMOL/L (3.5-5.1); SODIUM 140 MMOL/L (136-145)
--- NOTE | 2019-03-16 05:40 | NUR ---
NURSE NOTES: Noted PTT result with 53. Verified with pharmacist Eron and change heparin drip dose from 14U/Kg/hr to 16U/Kg/hr. Will continue to monitor any change of condition.
[2019-03-16] MEDS: Heparin 25,000u/D5W 500ml 500 ML IV SCH (05:54)
[2019-03-16] MEDS ORDERED: Heparin 1000 units/ml 1ml Vial INJ ONE (06:00)
[2019-03-16] MEDS: NovoLOG Insulin Flexpen SUBQ SCH ×4 (06:28→21:17)
[2019-03-16] MEDS: Miralax 17gm pkt ORAL PRN (06:28)
--- NOTE | 2019-03-16 06:46 | General Progress Note ---
Assessment/Plan Problem List: (1) Diabetes mellitus ICD Codes: E11.9 - Type 2 diabetes mellitus without complications SNOMED: 74139955 (2) Hypoglycemia ICD Codes: E16.2 - Hypoglycemia, unspecified SNOMED: 944898162 (3) Acute CHF ICD Codes: I50.9 - Heart failure, unspecified SNOMED: 75067342, 844462236, 250737910 (4) Acute metabolic encephalopathy ICD Codes: G93.41 - Metabolic encephalopathy SNOMED: 75223435, 257585390 (5) Cardiac LV ejection fraction 30-35% ICD Codes: R94.30 - Abnormal result of cardiovascular function study, unspecified SNOMED: 71264365, 112208036 (6) Pacemaker ICD Codes: Z95.0 - Presence of cardiac pacemaker SNOMED: 411840497 Assessment/Plan: no need for basal insulin Novolog sliding scale ac / hs hypoglycemia protocol in order Subjective ROS Limited/Unobtainable: Yes Allergies: Coded Allergies: No Known Allergies (Unverified , 03/10/19) Subjective events noted no recurrence of hypoglycemia Item Value Date Time Bedside Blood Glucose 124 mg/dl H 03/16/19 0628 Bedside Blood Glucose 146 mg/dl H 03/15/19 2113 Bedside Blood Glucose 165 mg/dl H 03/15/19 1853 Bedside Blood Glucose 109 mg/dl 03/15/19 1130 Bedside Blood Glucose 87 mg/dl 03/15/19 0630 Objective Last 24 Hour Vital Signs Date Time Temp Pulse Resp B/P (MAP) Pulse Ox O2 Delivery O2 Flow Rate FiO2 03/16/19 04:00 3.0 03/16/19 04:00 98.3 60 20 120/60 (80) 99 03/16/19 04:00 Nasal Cannula 3.0 03/16/19 04:00 60 03/16/19 00:00 3.0 03/16/19 00:00 60 03/16/19 00:00 97.8 62 20 104/60 (75) 98 03/16/19 00:00 Nasal Cannula 3.0 03/15/19 21:00 61 98/58 03/15/19 20:00 3.0 03/15/19 20:00 97.5 60 20 114/65 (81) 97 03/15/19 20:00 60 03/15/19 20:00 Nasal Cannula 3.0 03/15/19 19:05 96 Nasal Cannula 2.0 28 03/15/19 16:00 98.6 101 19 146/70 (95) 97 03/15/19 16:00 3.0 03/15/19 16:00 Nasal Cannula 3.0 03/15/19 15:26 62 03/15/19 12:00 3.0 03/15/19 12:00 Nasal Cannula 3.0 03/15/19 12:00 98.8 60 18 91/53 (66) 98 03/15/19 11:38 60 03/15/19 09:51 62 120/65 03/15/19 09:51 120/65 03/15/19 08:00 3.0 03/15/19 08:00 98.8 62 17 120/65 (83) 100 03/15/19 08:00 Nasal Cannula 3.0 03/15/19 07:59 61 03/15/19 07:48 93 Nasal Cannula 2.0 28 Intake and Output 03/15/19 03/16/19 18:59 06:59 Intake Total 400 ml 394.144 ml Output Total 1700 ml 1150 ml Balance -1300 ml -755.856 ml Intake Oral 400 ml 120 ml IV Total 274.144 ml Output Urine Total 1700 ml 1150 ml Laboratory Tests 03/15/19 06:57: White Blood Count 6.3, Red Blood Count 4.56L, Hemoglobin 11.7L, Hematocrit 37.0L , Mean Corpuscular Volume 81, Mean Corpuscular Hemoglobin 25.7L, Mean Corpuscular Hemoglobin Concent 31.7L, Red Cell Distribution Width 15.0H, Platelet Count 181, Mean Platelet Volume 8.5, Neutrophils (%) (Auto) 65.6, Lymphocytes (%) (Auto) 19.6L, Monocytes (%) (Auto) 10.8H, Eosinophils (%) (Auto ) 2.8, Basophils (%) (Auto) 1.1, Activated Partial Thromboplast Time 104H, Sodium Level 140, Potassium Level 3.5, Chloride Level 106, Carbon Dioxide Level 26, Anion Gap 8, Blood Urea Nitrogen 15, Creatinine 1.1, Estimat Glomerular Filtration Rate , Glucose Level 88, Calcium Level 8.4L, Total Bilirubin 1.1H, Direct Bilirubin 0.4H, Aspartate Amino Transf (AST/SGOT) 14L, Alanine Aminotransferase (ALT/SGPT) 18, Alkaline Phosphatase 115, Pro-B-Type Natriuretic Peptide 7550H, Total Protein 6.0L, Albumin 2.3L, Globulin 3.7, Albumin/Globulin Ratio 0.6L 03/15/19 14:10: Activated Partial Thromboplast Time 68H 03/16/19 04:00: White Blood Count 5.7, Red Blood Count 4.48L, Hemoglobin 11.4L, Hematocrit 36.5L , Mean Corpuscular Volume 81, Mean Corpuscular Hemoglobin 25.6L, Mean Corpuscular Hemoglobin Concent 31.4L, Red Cell Distribution Width 14.9H, Platelet Count 188, Mean Platelet Volume 7.6, Neutrophils (%) (Auto) 52.9, Lymphocytes (%) (Auto) 30.0, Monocytes (%) (Auto) 12.2H, Eosinophils (%) (Auto) 3.8H, Basophils (%) (Auto) 1.0, Activated Partial Thromboplast Time 53H, Sodium Level 140, Potassium Level 3.6, Chloride Level 106, Carbon Dioxide Level 30, Anion Gap 5, Blood Urea Nitrogen 17, Creatinine 1.1, Estimat Glomerular Filtration Rate , Glucose Level 81, Calcium Level 8.5, Total Bilirubin 0.8, Aspartate Amino Transf (AST/SGOT) 14L, Alanine Aminotransferase (ALT/SGPT) 13, Alkaline Phosphatase 107, Pro-B-Type Natriuretic Peptide 5991H, Total Protein 5.7L, Albumin 2.2L, Globulin 3.5, Albumin/Globulin Ratio 0.6L, Troponin I 0.127H Height (Feet): 5 Height (Inches): 8.00 Weight (Pounds): 166 General Appearance: no apparent distress Neck: normal alignment Cardiovascular: normal rate Respiratory/Chest: lungs clear Abdomen: normal bowel sounds Pelvis: normal external exam Objective Current Medications Medications (Trade) Dose Ordered Sig/Raymond Route PRN Reason Start Time Stop Time Status Last Admin Dose Admin Acetaminophen (Tylenol) 650 mg Q4H PRN ORAL fever 03/10/19 22:30 04/09/19 22:29 Aspirin (ASA) 81 mg DAILY ORAL 03/11/19 09:00 04/10/19 08:59 03/15/19 09:51 Carvedilol (Coreg) 3.125 mg EVERY 12 HOURS ORAL 03/12/19 21:00 04/11/19 20:59 03/15/19 09:51 Chlorhexidine Gluconate (Tayler-Hex 2%) 1 applic DAILY@2000 TOPIC 03/16/19 20:00 04/14/19 19:59 Clonidine HCl (Catapres Tab) 0.1 mg EVERY 4 HOURS PRN ORAL sbp more than 160 03/10/19 22:30 04/09/19 22:29 Dextrose (Dextrose 50%) 25 ml Q30M PRN IV Hypoglycemia 03/10/19 22:30 04/09/19 22:29 Dextrose (Dextrose 50%) 50 ml Q30M PRN IV Hypoglycemia 03/10/19 22:30 04/09/19 22:29 03/12/19 16:34 Furosemide (Lasix) 20 mg EVERY 8 HOURS IV 03/14/19 14:00 04/11/19 08:59 03/16/19 05:25 Heparin Sodium/ Dextrose 500 ml @ 24.288 mls/ hr ADJUST PER PROTOCOL IV 03/16/19 05:45 04/14/19 07:59 03/16/19 05:54 Insulin Aspart (NovoLOG) BEFORE MEALS AND HS SUBQ 03/11/19 21:00 04/10/19 20:59 03/16/19 06:28 Lisinopril (ZestriL) 10 mg DAILY ORAL 03/12/19 10:30 04/11/19 10:29 03/15/19 09:51 Nitroglycerin (Ntg) 0.4 mg Q5M X 3 DOSES PRN SL Prn Chest Pain 03/10/19 22:30 04/09/19 22:29 Ondansetron HCl (Zofran) 4 mg Q6H PRN IVP Nausea & Vomiting 03/10/19 22:30 04/09/19 22:29 Polyethylene Glycol (Miralax) 17 gm HSPRN PRN ORAL Constipation 03/10/19 22:30 04/09/19 22:29 03/16/19 06:28 Quetiapine Fumarate (SEROqueL) 25 mg Q12HR ORAL 03/12/19 09:00 04/11/19 08:59 03/15/19 21:12 Temazepam (Restoril) 15 mg HSPRN PRN ORAL Insomnia 03/10/19 22:30 03/17/19 22:29 03/11/19 20:58 Ralf Rousseau MD Mar 16, 2019 06:46
--- NOTE | 2019-03-16 07:15 | NUR ---
HAND-OFF: Report given to JULIÁN Souza. Pt is resting on the bed and no sign of acute distress noted. Family; sister stays at bedside.
--- NOTE | 2019-03-16 07:30 | NUR ---
NURSE NOTES: Report received from Amari Roach RN.Pt sitting up on bed awake,alert noted no resp distress ,on 3 LNC denies any c/o pain or discomfort,Vpaced on the monitor,with Foleycath draining yellow urine,IV site to RW intact with Heparin drip at 16 u /kg /hr,SR x2 HOB elevated,bed lock in lowest position, family member,sister at bedside ,will continue with plans of care,
[2019-03-16 08:00] VITALS: BP 105/57
[2019-03-16] MEDS: Aspirin Baby 81mg ORAL SCH (09:24)
[2019-03-16] MEDS: Lisinopril 10mg tab ORAL SCH (09:25)
--- NOTE | 2019-03-16 10:00 | NUR ---
HAND-OFF: Report given to Sg Gandhi RN..
--- NOTE | 2019-03-16 10:01 | NUR ---
NURSE NOTES: RECEIVED PATIENT FROM Olena FLOWER. PATIENT IS AWAKE AND RESPONSIVE. SPEAKING. HOOKED TO PLANER SETUP OPERATOR. ON 3L NC. NO SIGNS OF DISTRESS. NOTED FERREIRA CONNECTED TO BAG, PATENT AND DRAINING URINE. NOTED SKIN ALTERATION. PIV ON R WRIST G22 WITH HEPARIN DRIP AT 16"U"/KG/HR FOLLOWING HOSPITAL PROTOCOL. CALL LIGHT WITHIN REACH. BED AT LOWEST POSITION. SIDE RAILS UP. WILL CONTINUE TO MONITOR.
--- NOTE | 2019-03-16 10:30 | NUR ---
PT EVALUATION NOTE Patient seen for initial evaluation. Patient presents with generalized weakness and impaired balance which affects patient's ability to perform mobility tasks safely. Patient requires mod/max assist for bed mobility and requires assist to maintain sitting at the EOB. Patient unable to perform OOB activities due to weakness and impaired balance. Patient will benefit from skilled inpatient PT intervention to address strength, balance and safety for improved level of functional mobility. Recommend discharge to SNF for further rehab once medically cleared by MD. Patient lives in a second floor apartment without elevator access, has a SPC and FWW at home Addendum: 03/16/19 at 1259 by NEHEMIAS OLMEDO PT Amended: Links added.
--- NOTE | 2019-03-16 11:56 | NUR ---
ROTARY VENEER MACHINE OPERATORGARBAGE PICK UP MAN SI; AKIL UPPER EXT DVT T. 97.5 HR 62 RR 20 B/P 98/58 3L NC TROP 0.127 BNP 5991 IS: HEPARIN GTT LASIX IV COREG ZESTRIL STEP DOWN STATUS
--- NOTE | 2019-03-16 11:58 | NUR ---
PERINATAL INSTRUCTOR NOTES SPOKE WITH JOSUÉ FROM [facility], TELEPHONE REVIEW GIVEN AND FAXED. JOSUÉ [phone] EXT 1887 (F) [phone]
[2019-03-16 12:00] VITALS: BP 122/78
--- NOTE | 2019-03-16 12:12 | Pulmonology Progress Note ---
Assessment/Plan Problems: (1) Acute DVT (deep venous thrombosis) (2) Hypoglycemia (3) Acute CHF (4) Acute metabolic encephalopathy (5) Cardiac LV ejection fraction 30-35% (6) Pacemaker (7) Diabetes mellitus Assessment/Plan swallow study pending more alert agitated at times Echo reviewed, Lasix, TID, diuresing very well, watcch bun/creainine cxr reviewed 03/15 , still lots of edema, less effusion cardio starte start Coreg and Jose A inhibitors add seroquel dvt prophylaxis BNP lower Subjective ROS Limited/Unobtainable: No Constitutional: Reports: no symptoms HEENT: Repors: no symptoms Respiratory: Reports: no symptoms Allergies: Coded Allergies: No Known Allergies (Unverified , 03/10/19) Objective Last 24 Hour Vital Signs Date Time Temp Pulse Resp B/P (MAP) Pulse Ox O2 Delivery O2 Flow Rate FiO2 03/16/19 09:25 64 105/57 03/16/19 09:25 105/57 03/16/19 08:00 3.0 03/16/19 08:00 98.5 64 19 105/57 (73) 95 03/16/19 08:00 Nasal Cannula 3.0 03/16/19 04:00 3.0 03/16/19 04:00 98.3 60 20 120/60 (80) 99 03/16/19 04:00 Nasal Cannula 3.0 03/16/19 04:00 60 03/16/19 00:00 3.0 03/16/19 00:00 60 03/16/19 00:00 97.8 62 20 104/60 (75) 98 03/16/19 00:00 Nasal Cannula 3.0 03/15/19 21:00 61 98/58 03/15/19 20:00 3.0 03/15/19 20:00 97.5 60 20 114/65 (81) 97 03/15/19 20:00 60 03/15/19 20:00 Nasal Cannula 3.0 03/15/19 19:05 96 Nasal Cannula 2.0 28 03/15/19 16:00 98.6 101 19 146/70 (95) 97 03/15/19 16:00 3.0 03/15/19 16:00 Nasal Cannula 3.0 03/15/19 15:26 62 Intake and Output 03/15/19 03/16/19 19:00 07:00 Intake Total 421.252 ml 397.180 ml Output Total 1700 ml 1150 ml Balance -1278.748 ml -752.820 ml Intake Oral 400 ml 120 ml IV Total 21.252 ml 277.180 ml Output Urine Total 1700 ml 1150 ml General Appearance: WD/WN HEENT: normocephalic, atraumatic Respiratory/Chest: chest wall non-tender, lungs clear Cardiovascular: normal peripheral pulses, normal rate Abdomen: normal bowel sounds, soft, non tender Genitourinary: normal external genitalia Extremities: no cyanosis Skin: no rash Neurologic/Psychiatric: para educator II-XII grossly normal Laboratory Tests 03/15/19 14:10: Activated Partial Thromboplast Time 68H 03/16/19 04:00: Activated Partial Thromboplast Time 53H, White Blood Count 5.7, Red Blood Count 4.48L, Hemoglobin 11.4L, Hematocrit 36.5L, Mean Corpuscular Volume 81, Mean Corpuscular Hemoglobin 25.6L, Mean Corpuscular Hemoglobin Concent 31.4L, Red Cell Distribution Width 14.9H, Platelet Count 188, Mean Platelet Volume 7.6, Neutrophils (%) (Auto) 52.9, Lymphocytes (%) (Auto) 30.0, Monocytes (%) (Auto) 12.2H, Eosinophils (%) (Auto) 3.8H, Basophils (%) (Auto) 1.0, Sodium Level 140, Potassium Level 3.6, Chloride Level 106, Carbon Dioxide Level 30, Anion Gap 5, Blood Urea Nitrogen 17, Creatinine 1.1, Estimat Glomerular Filtration Rate , Glucose Level 81, Calcium Level 8.5, Total Bilirubin 0.8, Aspartate Amino Transf (AST/SGOT) 14L, Alanine Aminotransferase (ALT/SGPT) 13, Alkaline Phosphatase 107, Troponin I 0.127H, Pro-B-Type Natriuretic Peptide 5991H, Total Protein 5.7L, Albumin 2.2L, Globulin 3.5, Albumin/Globulin Ratio 0.6L 03/16/19 11:55: Activated Partial Thromboplast Time [Pending] Current Medications Medications (Trade) Dose Ordered Sig/Raymond Route PRN Reason Start Time Stop Time Status Last Admin Dose Admin Acetaminophen (Tylenol) 650 mg Q4H PRN ORAL fever 03/10/19 22:30 04/09/19 22:29 Aspirin (ASA) 81 mg DAILY ORAL 03/11/19 09:00 04/10/19 08:59 03/16/19 09:24 Carvedilol (Coreg) 3.125 mg EVERY 12 HOURS ORAL 03/12/19 21:00 04/11/19 20:59 03/16/19 09:25 Chlorhexidine Gluconate (Tayler-Hex 2%) 1 applic DAILY@2000 TOPIC 03/16/19 20:00 04/14/19 19:59 Clonidine HCl (Catapres Tab) 0.1 mg EVERY 4 HOURS PRN ORAL sbp more than 160 03/10/19 22:30 04/09/19 22:29 Dextrose (Dextrose 50%) 25 ml Q30M PRN IV Hypoglycemia 03/10/19 22:30 04/09/19 22:29 Dextrose (Dextrose 50%) 50 ml Q30M PRN IV Hypoglycemia 03/10/19 22:30 04/09/19 22:29 03/12/19 16:34 Furosemide (Lasix) 20 mg EVERY 8 HOURS IV 03/14/19 14:00 04/11/19 08:59 03/16/19 05:25 Heparin Sodium/ Dextrose 500 ml @ 24.288 mls/ hr ADJUST PER PROTOCOL IV 03/16/19 05:45 04/14/19 07:59 03/16/19 05:54 Insulin Aspart (NovoLOG) BEFORE MEALS AND HS SUBQ 03/11/19 21:00 04/10/19 20:59 03/16/19 06:28 Lisinopril (ZestriL) 10 mg DAILY ORAL 03/12/19 10:30 04/11/19 10:29 03/16/19 09:25 Nitroglycerin (Ntg) 0.4 mg Q5M X 3 DOSES PRN SL Prn Chest Pain 03/10/19 22:30 04/09/19 22:29 Ondansetron HCl (Zofran) 4 mg Q6H PRN IVP Nausea & Vomiting 03/10/19 22:30 04/09/19 22:29 Polyethylene Glycol (Miralax) 17 gm HSPRN PRN ORAL Constipation 03/10/19 22:30 04/09/19 22:29 03/16/19 06:28 Quetiapine Fumarate (SEROqueL) 25 mg Q12HR ORAL 03/12/19 09:00 04/11/19 08:59 03/16/19 09:24 Temazepam (Restoril) 15 mg HSPRN PRN ORAL Insomnia 03/10/19 22:30 03/17/19 22:29 03/11/19 20:58 Marc Jeffries MD Mar 16, 2019 12:12
--- NOTE | 2019-03-16 13:00 | NUR ---
NURSE NOTES: TO CONTINUE SAME RATE FOR HEPARIN. FOR TIMED APTT IN AM. SISTER SEEN AT THE BEDSIDE. WILL CONTINUE TO MONITOR.
--- NOTE | 2019-03-16 15:30 | NUR ---
NURSE NOTES: SPOKE WITH TREVOR REYES RE PICC LINE INSERTION, RESCHEDULED TOMORROW. NO SIGNS OF DISTRESS OF THE MOMENT.
[2019-03-16 16:00] VITALS: BP 98/47
[2019-03-16] MEDS ORDERED: NS 275ml ONE (18:10)
--- NOTE | 2019-03-16 18:11 | Internal Med Progress Note ---
Subjective Date of Service: Mar 16, 2019 Physician Name Crescencio Lock Attending Physician Codey Winters MD Current Medications Medications (Trade) Dose Ordered Sig/Raymond Route PRN Reason Start Time Stop Time Status Last Admin Dose Admin Acetaminophen (Tylenol) 650 mg Q4H PRN ORAL fever 03/10/19 22:30 04/09/19 22:29 Aspirin (ASA) 81 mg DAILY ORAL 03/11/19 09:00 04/10/19 08:59 03/16/19 09:24 Carvedilol (Coreg) 3.125 mg EVERY 12 HOURS ORAL 03/12/19 21:00 04/11/19 20:59 03/16/19 09:25 Chlorhexidine Gluconate (Tayler-Hex 2%) 1 applic DAILY@1999 TOPIC 03/16/19 20:00 04/14/19 19:59 Clonidine HCl (Catapres Tab) 0.1 mg EVERY 4 HOURS PRN ORAL sbp more than 160 03/10/19 22:30 04/09/19 22:29 Dextrose (Dextrose 50%) 25 ml Q30M PRN IV Hypoglycemia 03/10/19 22:30 04/09/19 22:29 Dextrose (Dextrose 50%) 50 ml Q30M PRN IV Hypoglycemia 03/10/19 22:30 04/09/19 22:29 03/12/19 16:34 Furosemide (Lasix) 20 mg EVERY 8 HOURS IV 03/14/19 14:00 04/11/19 08:59 03/16/19 14:42 Heparin Sodium/ Dextrose 500 ml @ 24.288 mls/ hr ADJUST PER PROTOCOL IV 03/16/19 05:45 04/14/19 07:59 03/16/19 05:54 Insulin Aspart (NovoLOG) BEFORE MEALS AND HS SUBQ 03/11/19 21:00 04/10/19 20:59 03/16/19 16:47 Lisinopril (ZestriL) 10 mg DAILY ORAL 03/12/19 10:30 04/11/19 10:29 03/16/19 09:25 Nitroglycerin (Ntg) 0.4 mg Q5M X 3 DOSES PRN SL Prn Chest Pain 03/10/19 22:30 04/09/19 22:29 Ondansetron HCl (Zofran) 4 mg Q6H PRN IVP Nausea & Vomiting 03/10/19 22:30 04/09/19 22:29 Polyethylene Glycol (Miralax) 17 gm HSPRN PRN ORAL Constipation 03/10/19 22:30 04/09/19 22:29 03/16/19 06:28 Quetiapine Fumarate (SEROqueL) 25 mg Q12HR ORAL 03/12/19 09:00 04/11/19 08:59 03/16/19 09:24 Temazepam (Restoril) 15 mg HSPRN PRN ORAL Insomnia 03/10/19 22:30 03/17/19 22:29 03/11/19 20:58 Allergies: Coded Allergies: No Known Allergies (Unverified , 03/10/19) ROS Limited/Unobtainable: Yes Subjective 78 YO M admitted with altered mental status. Cover for Int Med-Dr Winters. [facility] Objective Last Vital Signs Date Time Temp Pulse Resp B/P (MAP) Pulse Ox O2 Delivery O2 Flow Rate FiO2 03/16/19 16:00 98.2 62 19 98/47 (64) 98 03/16/19 16:00 Nasal Cannula 3.0 03/15/19 19:05 28 Laboratory Tests Test 03/16/19 04:00 03/16/19 11:55 White Blood Count 5.7 K/UL (4.8-10.8) Red Blood Count 4.48 M/UL (4.70-6.10) L Hemoglobin 11.4 G/DL (14.2-18.0) L Hematocrit 36.5 % (42.0-52.0) L Mean Corpuscular Volume 81 FL (80-99) Mean Corpuscular Hemoglobin 25.6 PG (27.0-31.0) L Mean Corpuscular Hemoglobin Concent 31.4 G/DL (32.0-36.0) L Red Cell Distribution Width 14.9 % (11.6-14.8) H Platelet Count 188 K/UL (150-450) Mean Platelet Volume 7.6 FL (6.5-10.1) Neutrophils (%) (Auto) 52.9 % (45.0-75.0) Lymphocytes (%) (Auto) 30.0 % (20.0-45.0) Monocytes (%) (Auto) 12.2 % (1.0-10.0) H Eosinophils (%) (Auto) 3.8 % (0.0-3.0) H Basophils (%) (Auto) 1.0 % (0.0-2.0) Activated Partial Thromboplast Time 53 SEC (23-33) H 95 SEC (23-33) H Sodium Level 140 MMOL/L (136-145) Potassium Level 3.6 MMOL/L (3.5-5.1) Chloride Level 106 MMOL/L (98-107) Carbon Dioxide Level 30 MMOL/L (21-32) Anion Gap 5 mmol/L (5-15) Blood Urea Nitrogen 17 mg/dL (7-18) Creatinine 1.1 MG/DL (0.55-1.30) Estimat Glomerular Filtration Rate mL/min (>60) Glucose Level 81 MG/DL (74-106) Calcium Level 8.5 MG/DL (8.5-10.1) Total Bilirubin 0.8 MG/DL (0.2-1.0) Aspartate Amino Transf (AST/SGOT) 14 U/L (15-37) L Alanine Aminotransferase (ALT/SGPT) 13 U/L (12-78) Alkaline Phosphatase 107 U/L (46-116) Troponin I 0.127 ng/mL (0.000-0.056) Pro-B-Type Natriuretic Peptide 5991 pg/mL (0-125) H Total Protein 5.7 G/DL (6.4-8.2) L Albumin 2.2 G/DL (3.4-5.0) L Globulin 3.5 g/dL Albumin/Globulin Ratio 0.6 (1.0-2.7) L Intake and Output 03/15/19 03/16/19 18:59 06:59 Intake Total 400 ml 418.432 ml Output Total 1700 ml 1150 ml Balance -1300 ml -731.568 ml Intake Oral 400 ml 120 ml IV Total 298.432 ml Output Urine Total 1700 ml 1150 ml Objective PHYSICAL EXAMINATION: GENERAL: The patient is awake, responsive, and sluggish. HEAD AND NECK: Pupils are reactive to light. Anicteric. NECK: Supple. No jugular venous distention. LUNGS: Good air entry. No wheeze or rales. Decreased air in the bases. HEART: S1, S2. Distant heart sounds. No murmur or gallops. ABDOMEN: Soft, nondistended, and nontender. Mildly obese. EXTREMITIES: No cyanosis or clubbing. Hyperpigmentation on the right lower extremity was noted and trace ankle edema. NEUROLOGIC: Cranial nerves II through XII are grossly intact. The patient is moving all the extremities spontaneously. Gait was not assessed due to the patient's status. RECTAL/GENITOURINARY: Refused and deferred. PSYCHIATRIC: Mood and affect is intact. Assessment/Plan Assessment/Plan ASSESSMENT: 1. Altered mental status, most likely secondary to toxic metabolic encephalopathy. 2. Diabetes type 2. 3. Congestive heart failure. 4. Hypertension. 5. Sick sinus syndrome status post pacemaker. 6. Obesity. PLAN: 1. Admit to [facility]. 2 Endocrinology=[facility] 3. Monitor blood glucose level closely. Novolog sliding scale 4. Resume home medication. 5. Duplex of lower extremity. 6. Discussed the case with Dr. Jeffries, Pulmonary Critical Care, as well as Cardiology consultation. 7. Code status, Full Code. Crescencio Lock MD Mar 16, 2019 18:11
--- NOTE | 2019-03-16 19:00 | NUR ---
NURSE NOTES: PATIENT KEPT CLEAN AND DRY. NO SIGNS OF DISTRESS. WILL CONTINUE TO MONITOR.
--- NOTE | 2019-03-16 19:32 | NUR ---
HAND-OFF: Report given to Marshal Mayberry RN .
--- NOTE | 2019-03-16 19:33 | NUR ---
NURSE NOTES: Received pt from JULIÁN Bettencourt. Pt is in bed with no signs of distress. Pt is aaox2, SR, 3L NC with no skin issues except ecchymosis on left arm. R wrist 22g. Pt on monitor, bed at its lowest position, call light in reach, and x3 bed rails are up. Will continue to monitor.
[2019-03-16 20:00] VITALS: BP 120/70
[2019-03-16] MEDS ORDERED: Dyna-Hex 2% Top Sol 2oz TOPIC SCH (20:00)
--- NOTE | 2019-03-16 20:37 | Cardiology Progress Note ---
Assessment/Plan Assessment/Plan 1. Hypoglycemia. 2. Diabetes mellitus. 3. Medication noncompliance. 4. Reported history of sick sinus syndrome, status post pacemaker implantation. 5. Reported history of congestive heart failure. 6. Cardiomyopathy. 7. Mitral regurgitation. 8. Abnormal cardiac enzymes 9. axilalry vein dvt bp lower decrease diuretics trop without a peak or susana off ivf ekg noted tele reviewed Subjective ROS Limited/Unobtainable: Yes Subjective dizzy Objective Last 24 Hour Vital Signs Date Time Temp Pulse Resp B/P (MAP) Pulse Ox O2 Delivery O2 Flow Rate FiO2 03/16/19 16:00 98.2 62 19 98/47 (64) 98 03/16/19 16:00 Nasal Cannula 3.0 03/16/19 16:00 62 03/16/19 12:00 98.4 64 18 122/78 (93) 100 03/16/19 12:00 Nasal Cannula 3.0 03/16/19 11:42 62 03/16/19 09:25 64 105/57 03/16/19 09:25 105/57 03/16/19 08:00 3.0 03/16/19 08:00 98.5 64 19 105/57 (73) 95 03/16/19 08:00 Nasal Cannula 3.0 03/16/19 07:42 65 03/16/19 04:00 3.0 03/16/19 04:00 98.3 60 20 120/60 (80) 99 03/16/19 04:00 Nasal Cannula 3.0 03/16/19 04:00 60 03/16/19 00:00 3.0 03/16/19 00:00 60 03/16/19 00:00 97.8 62 20 104/60 (75) 98 03/16/19 00:00 Nasal Cannula 3.0 03/15/19 21:00 61 98/58 General Appearance: no apparent distress Intake and Output 03/15/19 03/16/19 19:00 07:00 Intake Total 421.252 ml 397.180 ml Output Total 1700 ml 1150 ml Balance -1278.748 ml -752.820 ml Intake Oral 400 ml 120 ml IV Total 21.252 ml 277.180 ml Output Urine Total 1700 ml 1150 ml Laboratory Tests Test 03/16/19 04:00 03/16/19 11:55 White Blood Count 5.7 K/UL (4.8-10.8) Red Blood Count 4.48 M/UL (4.70-6.10) L Hemoglobin 11.4 G/DL (14.2-18.0) L Hematocrit 36.5 % (42.0-52.0) L Mean Corpuscular Volume 81 FL (80-99) Mean Corpuscular Hemoglobin 25.6 PG (27.0-31.0) L Mean Corpuscular Hemoglobin Concent 31.4 G/DL (32.0-36.0) L Red Cell Distribution Width 14.9 % (11.6-14.8) H Platelet Count 188 K/UL (150-450) Mean Platelet Volume 7.6 FL (6.5-10.1) Neutrophils (%) (Auto) 52.9 % (45.0-75.0) Lymphocytes (%) (Auto) 30.0 % (20.0-45.0) Monocytes (%) (Auto) 12.2 % (1.0-10.0) H Eosinophils (%) (Auto) 3.8 % (0.0-3.0) H Basophils (%) (Auto) 1.0 % (0.0-2.0) Activated Partial Thromboplast Time 53 SEC (23-33) H 95 SEC (23-33) H Sodium Level 140 MMOL/L (136-145) Potassium Level 3.6 MMOL/L (3.5-5.1) Chloride Level 106 MMOL/L (98-107) Carbon Dioxide Level 30 MMOL/L (21-32) Anion Gap 5 mmol/L (5-15) Blood Urea Nitrogen 17 mg/dL (7-18) Creatinine 1.1 MG/DL (0.55-1.30) Estimat Glomerular Filtration Rate mL/min (>60) Glucose Level 81 MG/DL (74-106) Calcium Level 8.5 MG/DL (8.5-10.1) Total Bilirubin 0.8 MG/DL (0.2-1.0) Aspartate Amino Transf (AST/SGOT) 14 U/L (15-37) L Alanine Aminotransferase (ALT/SGPT) 13 U/L (12-78) Alkaline Phosphatase 107 U/L (46-116) Troponin I 0.127 ng/mL (0.000-0.056) Pro-B-Type Natriuretic Peptide 5991 pg/mL (0-125) H Total Protein 5.7 G/DL (6.4-8.2) L Albumin 2.2 G/DL (3.4-5.0) L Globulin 3.5 g/dL Albumin/Globulin Ratio 0.6 (1.0-2.7) L Rhett Kennedy MD Mar 16, 2019 20:37
[2019-03-17] VITALS (7 sets, daily range): BP systolic 94–146; BP diastolic 52–80
[2019-03-17] MEDS: Heparin 25,000u/D5W 500ml 500 ML IV SCH ×3 (03:13→23:53)
[2019-03-17 05:16] LABS: BASOPHILS % (AUTO) 1.5 % (0.0-2.0); HEMATOCRIT 39.6 % (42.0-52.0); HEMOGLOBIN 12.3 G/DL (14.2-18.0); LYMPHOCYTES % (AUTO) 35.4 % (20.0-45.0); MEAN CORPUSCULAR VOLUME 82 FL (80-99); MONOCYTES % (AUTO) 9.4 % (1.0-10.0); NEUTROPHILS % (AUTO) 50.8 % (45.0-75.0); PLATELET COUNT 197 K/UL (150-450); RED BLOOD COUNT 4.83 M/UL (4.70-6.10); RED CELL DISTRIBUTION WIDTH 15.3 % (11.6-14.8)
[2019-03-17] MEDS: NovoLOG Insulin Flexpen SUBQ SCH ×4 (05:33→20:43)
[2019-03-17 05:47] LABS: ANION GAP 9 mmol/L (5-15); BLOOD UREA NITROGEN 13 mg/dL (7-18); CALCIUM 8.6 MG/DL (8.5-10.1); CARBON DIOXIDE 26 MMOL/L (21-32); CHLORIDE 104 MMOL/L (98-107); CREATININE 1.1 MG/DL (0.55-1.30); SODIUM 139 MMOL/L (136-145)
--- NOTE | 2019-03-17 06:03 | NUR ---
NURSE NOTES: Yahaira called to report PTT of 72 and to keep current heparin rate. Will put in PTT lab for 03/18
--- NOTE | 2019-03-17 07:28 | NUR ---
HAND-OFF: Report given to JULIÁN Padilla.
--- NOTE | 2019-03-17 07:30 | NUR ---
NURSE NOTES: Report received from Ke GALLEGO.Pt resting in bed awake alert disoriented on and off follows simple command in Khmer,no signs of pain or discomfort,S-R on the monitor,David cath draining julian yellow urine,pt a feeder,being fed by relative his sister,no aspiration noted,able to swallow food,skin warm and dry with IV to RW Heparin drip at 16 u/kg/hr,SR up x2 HOB elevated,bed lock in lowest position will continue with plans of care.
[2019-03-17] MEDS: Lisinopril 10mg tab ORAL SCH (08:49)
[2019-03-17] MEDS: Miralax 17gm pkt ORAL PRN (08:49)
[2019-03-17] MEDS: Aspirin Baby 81mg ORAL SCH (08:50)
--- NOTE | 2019-03-17 11:00 | NUR ---
NURSE NOTES: Pt stable,no distress presented,Radiology dept called,in F/U of PICC line insertion,spoke with Lauri said it will be done after lunch time since the Radiologist is in a meeting.
--- NOTE | 2019-03-17 11:18 | Pulmonology Progress Note ---
Assessment/Plan Problems: (1) Acute DVT (deep venous thrombosis) (2) Hypoglycemia (3) Acute CHF (4) Acute metabolic encephalopathy (5) Cardiac LV ejection fraction 30-35% (6) Pacemaker (7) Diabetes mellitus Assessment/Plan swallow study pending more alert agitated at times Echo reviewed, Lasix, TID, diuresing very well, watcch bun/creainine cxr reviewed 03/15 , still lots of edema, less effusion cardio starte start Coreg and Jose A inhibitors on seroquel dvt prophylaxis BNP lower Subjective ROS Limited/Unobtainable: No Constitutional: Reports: no symptoms HEENT: Repors: no symptoms Allergies: Coded Allergies: No Known Allergies (Unverified , 03/10/19) Objective Last 24 Hour Vital Signs Date Time Temp Pulse Resp B/P (MAP) Pulse Ox O2 Delivery O2 Flow Rate FiO2 03/17/19 08:49 64 124/79 03/17/19 08:49 124/79 03/17/19 08:15 97 Nasal Cannula 2.0 28 03/17/19 08:00 97.2 64 20 124/79 (94) 100 03/17/19 08:00 60 03/17/19 08:00 Nasal Cannula 3.0 03/17/19 04:00 Nasal Cannula 3.0 03/17/19 04:00 76 03/17/19 04:00 97.8 76 16 130/80 (97) 97 03/17/19 00:36 95 Nasal Cannula 2.0 28 03/17/19 00:00 Nasal Cannula 3.0 03/17/19 00:00 98.1 76 20 129/76 (93) 97 03/16/19 23:06 75 03/16/19 21:19 96 149/87 03/16/19 20:00 98.2 76 16 120/70 (87) 95 03/16/19 20:00 Nasal Cannula 3.0 03/16/19 19:12 78 03/16/19 16:00 98.2 62 19 98/47 (64) 98 03/16/19 16:00 Nasal Cannula 3.0 03/16/19 16:00 62 03/16/19 12:00 98.4 64 18 122/78 (93) 100 03/16/19 12:00 Nasal Cannula 3.0 03/16/19 11:42 62 Intake and Output 03/16/19 03/17/19 19:00 07:00 Intake Total 617.168 ml 194.304 ml Output Total 1400 ml 700 ml Balance -782.832 ml -505.696 ml Intake Oral 350 ml IV Total 267.168 ml 194.304 ml Output Urine Total 1400 ml 700 ml General Appearance: WD/WN HEENT: normocephalic, anicteric Respiratory/Chest: chest wall non-tender, lungs clear Cardiovascular: normal peripheral pulses, normal rate Abdomen: normal bowel sounds, soft, non tender Extremities: no cyanosis Skin: no rash Neurologic/Psychiatric: barge pilot II-XII grossly normal Lymphatic: no neck adenopathy, no groin adenopathy Laboratory Tests 03/16/19 11:55: Activated Partial Thromboplast Time 95H 03/17/19 04:00: Activated Partial Thromboplast Time 72H, White Blood Count 6.0, Red Blood Count 4.83, Hemoglobin 12.3L, Hematocrit 39.6L, Mean Corpuscular Volume 82, Mean Corpuscular Hemoglobin 25.5L, Mean Corpuscular Hemoglobin Concent 31.1L, Red Cell Distribution Width 15.3H, Platelet Count 197, Mean Platelet Volume 6.9, Neutrophils (%) (Auto) 50.8, Lymphocytes (%) (Auto) 35.4, Monocytes (%) (Auto) 9.4, Eosinophils (%) (Auto) 3.0, Basophils (%) (Auto) 1.5, Sodium Level 139, Potassium Level 4.0, Chloride Level 104, Carbon Dioxide Level 26, Anion Gap 9, Blood Urea Nitrogen 13, Creatinine 1.1, Estimat Glomerular Filtration Rate , Glucose Level 119H, Calcium Level 8.6 Current Medications Medications (Trade) Dose Ordered Sig/Raymond Route PRN Reason Start Time Stop Time Status Last Admin Dose Admin Acetaminophen (Tylenol) 650 mg Q4H PRN ORAL fever 03/10/19 22:30 04/09/19 22:29 Aspirin (ASA) 81 mg DAILY ORAL 03/11/19 09:00 04/10/19 08:59 03/17/19 08:50 Carvedilol (Coreg) 3.125 mg EVERY 12 HOURS ORAL 03/12/19 21:00 04/11/19 20:59 03/17/19 08:49 Chlorhexidine Gluconate (Tayler-Hex 2%) 1 applic DAILY@2000 TOPIC 03/16/19 20:00 04/14/19 19:59 03/16/19 21:18 Clonidine HCl (Catapres Tab) 0.1 mg EVERY 4 HOURS PRN ORAL sbp more than 160 03/10/19 22:30 04/09/19 22:29 Dextrose (Dextrose 50%) 25 ml Q30M PRN IV Hypoglycemia 03/10/19 22:30 04/09/19 22:29 Dextrose (Dextrose 50%) 50 ml Q30M PRN IV Hypoglycemia 03/10/19 22:30 04/09/19 22:29 03/12/19 16:34 Furosemide (Lasix) 20 mg DAILY IV 03/17/19 09:00 04/16/19 08:59 03/17/19 08:50 Heparin Sodium/ Dextrose 500 ml @ 24.288 mls/ hr ADJUST PER PROTOCOL IV 03/16/19 05:45 04/14/19 07:59 03/17/19 03:13 Insulin Aspart (NovoLOG) BEFORE MEALS AND HS SUBQ 03/11/19 21:00 04/10/19 20:59 03/16/19 21:17 Lisinopril (ZestriL) 10 mg DAILY ORAL 03/12/19 10:30 04/11/19 10:29 03/17/19 08:49 Nitroglycerin (Ntg) 0.4 mg Q5M X 3 DOSES PRN SL Prn Chest Pain 03/10/19 22:30 04/09/19 22:29 Ondansetron HCl (Zofran) 4 mg Q6H PRN IVP Nausea & Vomiting 03/10/19 22:30 04/09/19 22:29 Polyethylene Glycol (Miralax) 17 gm HSPRN PRN ORAL Constipation 03/10/19 22:30 04/09/19 22:29 03/17/19 08:49 Quetiapine Fumarate (SEROqueL) 25 mg Q12HR ORAL 03/12/19 09:00 04/11/19 08:59 03/17/19 08:49 Temazepam (Restoril) 15 mg HSPRN PRN ORAL Insomnia 03/10/19 22:30 03/17/19 22:29 03/11/19 20:58 Marc Jeffries MD Mar 17, 2019 11:18
[2019-03-17] MEDS ORDERED: Nitroglycerin Subl 0.4mg tab SL PRN (15:15)
--- NOTE | 2019-03-17 15:20 | NUR ---
:TRANSFER TO FLOOR: Patient transferred to4 E room 412-1 , per bed asleep noted no resp distress in stable conditionwith IVF Heparin drip at 16 u/kg/hr to Rt wrist.. Report given to Brayden OSEI RN. Belongings and medications given to receiving property site manager and or S/O informed of transfer and at bedside.
--- NOTE | 2019-03-17 15:25 | NUR ---
NURSE NOTES: Received report from JULIÁN Padilla from [facility]. Pt is resting in bed, on 3LNC, no apparent distress or complaints of pain noted. Heparin drip at 16u/kg/hr on Rt wrist. Sister Samantha White at bedside. Bed locked in lowest position, side rails up, call light within reach. Will continue to monitor.
--- NOTE | 2019-03-17 18:08 | Internal Med Progress Note ---
Subjective Date of Service: Mar 17, 2019 Physician Name Crescencio Lock Attending Physician Codey Winters MD Current Medications Medications (Trade) Dose Ordered Sig/Raymond Route PRN Reason Start Time Stop Time Status Last Admin Dose Admin Acetaminophen (Tylenol) 650 mg Q4H PRN ORAL fever 03/17/19 16:00 04/09/19 15:59 Aspirin (ASA) 81 mg DAILY ORAL 03/18/19 09:00 04/10/19 08:59 Carvedilol (Coreg) 3.125 mg EVERY 12 HOURS ORAL 03/17/19 21:00 04/11/19 20:59 Clonidine HCl (Catapres Tab) 0.1 mg Q4H PRN ORAL sbp more than 160 03/17/19 17:00 04/16/19 16:59 Dextrose (Dextrose 50%) 25 ml Q30M PRN IV Hypoglycemia 03/17/19 15:30 04/09/19 22:29 Dextrose (Dextrose 50%) 50 ml Q30M PRN IV Hypoglycemia 03/17/19 15:30 04/09/19 22:29 Furosemide (Lasix) 20 mg DAILY IV 03/18/19 09:00 04/16/19 08:59 Heparin Sodium/ Dextrose 500 ml @ 24.288 mls/ hr ADJUST PER PROTOCOL IV 03/17/19 16:00 04/16/19 15:59 03/17/19 16:58 Insulin Aspart (NovoLOG) BEFORE MEALS AND HS SUBQ 03/17/19 16:30 04/10/19 20:59 03/17/19 16:59 Lisinopril (ZestriL) 10 mg DAILY ORAL 03/18/19 09:00 04/11/19 10:29 Nitroglycerin (Ntg) 0.4 mg Q5M X 3 DOSES PRN SL Prn Chest Pain 03/17/19 15:15 04/09/19 22:29 Ondansetron HCl (Zofran) 4 mg Q6H PRN IVP Nausea & Vomiting 03/17/19 16:30 04/09/19 22:29 Polyethylene Glycol (Miralax) 17 gm HSPRN PRN ORAL Constipation 03/17/19 16:00 04/09/19 15:59 Quetiapine Fumarate (SEROqueL) 25 mg Q12HR ORAL 03/17/19 21:00 04/11/19 08:59 Allergies: Coded Allergies: No Known Allergies (Unverified , 03/10/19) ROS Limited/Unobtainable: Yes Subjective 78 YO M admitted with altered mental status. Cover for Int Dominik-Dr Winters. Objective Last Vital Signs Date Time Temp Pulse Resp B/P (MAP) Pulse Ox O2 Delivery O2 Flow Rate FiO2 03/17/19 16:00 96.8 71 20 94/61 (72) 99 03/17/19 12:00 Nasal Cannula 3.0 03/17/19 08:15 28 Laboratory Tests Test 03/17/19 04:00 White Blood Count 6.0 K/UL (4.8-10.8) Red Blood Count 4.83 M/UL (4.70-6.10) Hemoglobin 12.3 G/DL (14.2-18.0) L Hematocrit 39.6 % (42.0-52.0) L Mean Corpuscular Volume 82 FL (80-99) Mean Corpuscular Hemoglobin 25.5 PG (27.0-31.0) L Mean Corpuscular Hemoglobin Concent 31.1 G/DL (32.0-36.0) L Red Cell Distribution Width 15.3 % (11.6-14.8) H Platelet Count 197 K/UL (150-450) Mean Platelet Volume 6.9 FL (6.5-10.1) Neutrophils (%) (Auto) 50.8 % (45.0-75.0) Lymphocytes (%) (Auto) 35.4 % (20.0-45.0) Monocytes (%) (Auto) 9.4 % (1.0-10.0) Eosinophils (%) (Auto) 3.0 % (0.0-3.0) Basophils (%) (Auto) 1.5 % (0.0-2.0) Activated Partial Thromboplast Time 72 SEC (23-33) H Sodium Level 139 MMOL/L (136-145) Potassium Level 4.0 MMOL/L (3.5-5.1) Chloride Level 104 MMOL/L (98-107) Carbon Dioxide Level 26 MMOL/L (21-32) Anion Gap 9 mmol/L (5-15) Blood Urea Nitrogen 13 mg/dL (7-18) Creatinine 1.1 MG/DL (0.55-1.30) Estimat Glomerular Filtration Rate mL/min (>60) Glucose Level 119 MG/DL (74-106) H Calcium Level 8.6 MG/DL (8.5-10.1) Intake and Output 03/16/19 03/17/19 19:00 07:00 Intake Total 617.168 ml 194.304 ml Output Total 1400 ml 700 ml Balance -782.832 ml -505.696 ml Intake Oral 350 ml IV Total 267.168 ml 194.304 ml Output Urine Total 1400 ml 700 ml Objective PHYSICAL EXAMINATION: GENERAL: The patient is awake, responsive, and sluggish. HEAD AND NECK: Pupils are reactive to light. Anicteric. NECK: Supple. No jugular venous distention. LUNGS: Good air entry. No wheeze or rales. Decreased air in the bases. HEART: S1, S2. Distant heart sounds. No murmur or gallops. ABDOMEN: Soft, nondistended, and nontender. Mildly obese. EXTREMITIES: No cyanosis or clubbing. Hyperpigmentation on the right lower extremity was noted and trace ankle edema. NEUROLOGIC: Cranial nerves II through XII are grossly intact. The patient is moving all the extremities spontaneously. Gait was not assessed due to the patient's status. RECTAL/GENITOURINARY: Refused and deferred. PSYCHIATRIC: Mood and affect is intact. Assessment/Plan Assessment/Plan ASSESSMENT: 1. Altered mental status, most likely secondary to toxic metabolic encephalopathy. 2. Diabetes type 2. 3. Congestive heart failure. 4. Hypertension. 5. Sick sinus syndrome status post pacemaker. 6. Obesity. 7. Discharge planning PLAN: 1. Med/Surg 2 Endocrinology=[facility] 3. Monitor blood glucose level closely. Novolog sliding scale 4. Resume home medication. 5. Duplex of lower extremity. 6. Discussed the case with Dr. Jeffries, Pulmonary Critical Care, as well as Cardiology consultation. 7. Code status, Full Code. Crescencio Lock MD Mar 17, 2019 18:08
--- NOTE | 2019-03-17 19:11 | NUR ---
HAND-OFF: Report given to JULIÁN Sanabria.
--- NOTE | 2019-03-17 19:54 | NUR ---
NURSE NOTES: Received patient in bed, family at bedside, patient is awake, oriented x1, IV site is clean dry and intact, call light is within reach, bed is lowered, locked and alarm is on. Will continue to monitor for comfort and safety.
--- NOTE | 2019-03-17 21:17 | General Progress Note ---
Assessment/Plan Problem List: (1) Diabetes mellitus ICD Codes: E11.9 - Type 2 diabetes mellitus without complications SNOMED: 29138160 (2) Hypoglycemia ICD Codes: E16.2 - Hypoglycemia, unspecified SNOMED: 083721057 (3) Acute CHF ICD Codes: I50.9 - Heart failure, unspecified SNOMED: 33985124, 563686514, 744716312 (4) Acute metabolic encephalopathy ICD Codes: G93.41 - Metabolic encephalopathy SNOMED: 39568476, 957765840 (5) Cardiac LV ejection fraction 30-35% ICD Codes: R94.30 - Abnormal result of cardiovascular function study, unspecified SNOMED: 69006884, 682573538 (6) Pacemaker ICD Codes: Z95.0 - Presence of cardiac pacemaker SNOMED: 242610051 Assessment/Plan: no need for basal insulin Novolog sliding scale ac / hs hypoglycemia protocol in order Subjective ROS Limited/Unobtainable: Yes Allergies: Coded Allergies: No Known Allergies (Unverified , 03/10/19) Subjective events noted fair glycemic control Item Value Date Time Bedside Blood Glucose 192 mg/dl H 03/17/19 2043 Bedside Blood Glucose 160 mg/dl H 03/17/19 1659 Bedside Blood Glucose 231 mg/dl H 03/17/19 1224 Bedside Blood Glucose 107 mg/dl 03/17/19 0630 Objective Last 24 Hour Vital Signs Date Time Temp Pulse Resp B/P (MAP) Pulse Ox O2 Delivery O2 Flow Rate FiO2 03/17/19 20:25 74 110/87 03/17/19 20:00 97.8 71 19 108/53 (71) 98 71 03/17/19 16:00 96.8 71 20 94/61 (72) 99 03/17/19 15:30 98.7 69 20 139/52 (81) 99 03/17/19 12:00 67 03/17/19 12:00 Nasal Cannula 3.0 03/17/19 12:00 98.5 63 19 146/65 (92) 96 03/17/19 08:49 64 124/79 03/17/19 08:49 124/79 03/17/19 08:15 97 Nasal Cannula 2.0 28 03/17/19 08:00 97.2 64 20 124/79 (94) 100 03/17/19 08:00 60 03/17/19 08:00 Nasal Cannula 3.0 03/17/19 04:00 Nasal Cannula 3.0 03/17/19 04:00 76 03/17/19 04:00 97.8 76 16 130/80 (97) 97 03/17/19 00:36 95 Nasal Cannula 2.0 28 03/17/19 00:00 Nasal Cannula 3.0 03/17/19 00:00 98.1 76 20 129/76 (93) 97 03/16/19 23:06 75 03/16/19 21:19 96 149/87 Intake and Output 03/16/19 03/17/19 19:00 07:00 Intake Total 617.168 ml 194.304 ml Output Total 1400 ml 700 ml Balance -782.832 ml -505.696 ml Intake Oral 350 ml IV Total 267.168 ml 194.304 ml Output Urine Total 1400 ml 700 ml Laboratory Tests 03/17/19 04:00: White Blood Count 6.0, Red Blood Count 4.83, Hemoglobin 12.3L, Hematocrit 39.6L , Mean Corpuscular Volume 82, Mean Corpuscular Hemoglobin 25.5L, Mean Corpuscular Hemoglobin Concent 31.1L, Red Cell Distribution Width 15.3H, Platelet Count 197, Mean Platelet Volume 6.9, Neutrophils (%) (Auto) 50.8, Lymphocytes (%) (Auto) 35.4, Monocytes (%) (Auto) 9.4, Eosinophils (%) (Auto) 3.0, Basophils (%) (Auto) 1.5, Activated Partial Thromboplast Time 72H, Sodium Level 139, Potassium Level 4.0, Chloride Level 104, Carbon Dioxide Level 26, Anion Gap 9, Blood Urea Nitrogen 13, Creatinine 1.1, Estimat Glomerular Filtration Rate , Glucose Level 119H, Calcium Level 8.6 Height (Feet): 5 Height (Inches): 8.00 Weight (Pounds): 166 General Appearance: lethargic Neck: normal alignment Cardiovascular: normal rate Respiratory/Chest: decreased breath sounds Abdomen: normal bowel sounds Objective Current Medications Medications (Trade) Dose Ordered Sig/Raymond Route PRN Reason Start Time Stop Time Status Last Admin Dose Admin Acetaminophen (Tylenol) 650 mg Q4H PRN ORAL fever 03/17/19 16:00 04/09/19 15:59 Aspirin (ASA) 81 mg DAILY ORAL 12/20/19 09:00 04/10/19 08:59 Carvedilol (Coreg) 3.125 mg EVERY 12 HOURS ORAL 03/17/19 21:00 04/11/19 20:59 03/17/19 20:25 Clonidine HCl (Catapres Tab) 0.1 mg Q4H PRN ORAL sbp more than 160 03/17/19 17:00 04/16/19 16:59 Dextrose (Dextrose 50%) 25 ml Q30M PRN IV Hypoglycemia 03/17/19 15:30 04/09/19 22:29 Dextrose (Dextrose 50%) 50 ml Q30M PRN IV Hypoglycemia 03/17/19 15:30 04/09/19 22:29 Furosemide (Lasix) 20 mg DAILY IV 03/18/19 09:00 04/16/19 08:59 Heparin Sodium/ Dextrose 500 ml @ 24.288 mls/ hr ADJUST PER PROTOCOL IV 03/17/19 16:00 04/16/19 15:59 03/17/19 16:58 Insulin Aspart (NovoLOG) BEFORE MEALS AND HS SUBQ 03/17/19 16:30 04/10/19 20:59 03/17/19 20:43 Lisinopril (ZestriL) 10 mg DAILY ORAL 03/18/19 09:00 04/11/19 10:29 Nitroglycerin (Ntg) 0.4 mg Q5M X 3 DOSES PRN SL Prn Chest Pain 03/17/19 15:15 04/09/19 22:29 Ondansetron HCl (Zofran) 4 mg Q6H PRN IVP Nausea & Vomiting 03/17/19 16:30 04/09/19 22:29 Polyethylene Glycol (Miralax) 17 gm HSPRN PRN ORAL Constipation 03/17/19 16:00 04/09/19 15:59 Quetiapine Fumarate (SEROqueL) 25 mg Q12HR ORAL 03/17/19 21:00 04/11/19 08:59 03/17/19 20:25 Ralf Rousseau MD Mar 17, 2019 21:17
[2019-03-18 00:26] VITALS: BP 120/57
[2019-03-18 04:00] VITALS: BP 150/84
--- NOTE | 2019-03-18 05:16 | NUR ---
NURSE NOTES: PTT result is 62, notified pipeline pharmacist Yahaira, patient is also noted with blood in the urine bag. Notified Dr. Lynn. CN is aware.
--- NOTE | 2019-03-18 05:48 | NUR ---
NURSE NOTES: Per Dr Winters hold heparin infusion for 24 hours, then restart with a low dose, RN communicated message to Yahaira pharmacist, CN was made aware.
[2019-03-18] MEDS: NovoLOG Insulin Flexpen SUBQ SCH ×4 (06:27→21:12)
--- NOTE | 2019-03-18 06:58 | NUR ---
HAND-OFF: Report given to Teresa GALLEGO.
--- NOTE | 2019-03-18 07:00 | NUR ---
NURSE NOTES: Received report from JULIÁN Sanabria. Pt is A/Ox1, German speaking, sister at bedside. On 3LNC, no complaints of pain or apparent distress noted. IV site intact. Bed locked in lowest position, side rails up, call light within reach. Will continue to monitor.
--- NOTE | 2019-03-18 07:06 | General Progress Note ---
Assessment/Plan Problem List: (1) Diabetes mellitus ICD Codes: E11.9 - Type 2 diabetes mellitus without complications SNOMED: 34952980 (2) Hypoglycemia ICD Codes: E16.2 - Hypoglycemia, unspecified SNOMED: 972148939 (3) Acute CHF ICD Codes: I50.9 - Heart failure, unspecified SNOMED: 50415869, 665742306, 912410392 (4) Acute metabolic encephalopathy ICD Codes: G93.41 - Metabolic encephalopathy SNOMED: 10028021, 343700358 (5) Cardiac LV ejection fraction 30-35% ICD Codes: R94.30 - Abnormal result of cardiovascular function study, unspecified SNOMED: 38739287, 759174039 (6) Pacemaker ICD Codes: Z95.0 - Presence of cardiac pacemaker SNOMED: 545901901 Assessment/Plan: no need for basal insulin Novolog sliding scale ac / hs hypoglycemia protocol in order Subjective ROS Limited/Unobtainable: Yes Allergies: Coded Allergies: No Known Allergies (Unverified , 03/10/19) Subjective events noted fair glycemic control Item Value Date Time Bedside Blood Glucose 160 mg/dl H 03/17/19 1659 Bedside Blood Glucose 231 mg/dl H 03/17/19 1224 Bedside Blood Glucose 107 mg/dl 03/17/19 0630 Objective Last 24 Hour Vital Signs Date Time Temp Pulse Resp B/P (MAP) Pulse Ox O2 Delivery O2 Flow Rate FiO2 03/18/19 04:00 98.5 70 19 150/84 (106) 100 03/18/19 00:26 98.2 69 19 120/57 (78) 98 03/17/19 21:18 Nasal Cannula 3.0 03/17/19 20:25 74 110/87 03/17/19 20:00 97.8 71 19 108/53 (71) 98 71 03/17/19 19:51 98 Nasal Cannula 2.0 28 03/17/19 16:00 96.8 71 20 94/61 (72) 99 03/17/19 15:30 98.7 69 20 139/52 (81) 99 03/17/19 12:00 67 03/17/19 12:00 Nasal Cannula 3.0 03/17/19 12:00 98.5 63 19 146/65 (92) 96 03/17/19 08:49 64 124/79 03/17/19 08:49 124/79 03/17/19 08:15 97 Nasal Cannula 2.0 28 03/17/19 08:00 97.2 64 20 124/79 (94) 100 03/17/19 08:00 60 03/17/19 08:00 Nasal Cannula 3.0 Intake and Output 03/17/19 03/18/19 19:00 07:00 Intake Total 168.576 ml 194.304 ml Output Total 200 ml Balance -31.424 ml 194.304 ml Intake Oral 120 ml IV Total 48.576 ml 194.304 ml Output Urine Total 200 ml # Bowel Movements 1 Laboratory Tests 03/18/19 03:46: Activated Partial Thromboplast Time 62H Height (Feet): 5 Height (Inches): 8.00 Weight (Pounds): 159 General Appearance: lethargic Neck: normal alignment Cardiovascular: normal rate Respiratory/Chest: lungs clear Abdomen: normal bowel sounds Pelvis: normal external exam Objective Current Medications Medications (Trade) Dose Ordered Sig/Raymond Route PRN Reason Start Time Stop Time Status Last Admin Dose Admin Acetaminophen (Tylenol) 650 mg Q4H PRN ORAL fever 03/17/19 16:00 04/09/19 15:59 Aspirin (ASA) 81 mg DAILY ORAL 03/18/19 09:00 04/10/19 08:59 Carvedilol (Coreg) 3.125 mg EVERY 12 HOURS ORAL 03/17/19 21:00 04/11/19 20:59 03/17/19 20:25 Clonidine HCl (Catapres Tab) 0.1 mg Q4H PRN ORAL sbp more than 160 03/17/19 17:00 04/16/19 16:59 Dextrose (Dextrose 50%) 25 ml Q30M PRN IV Hypoglycemia 03/17/19 15:30 04/09/19 22:29 Dextrose (Dextrose 50%) 50 ml Q30M PRN IV Hypoglycemia 03/17/19 15:30 04/09/19 22:29 Furosemide (Lasix) 20 mg DAILY IV 03/18/19 09:00 04/16/19 08:59 Insulin Aspart (NovoLOG) BEFORE MEALS AND HS SUBQ 03/17/19 16:30 04/10/19 20:59 03/18/19 06:27 Lisinopril (ZestriL) 10 mg DAILY ORAL 03/18/19 09:00 04/11/19 10:29 Nitroglycerin (Ntg) 0.4 mg Q5M X 3 DOSES PRN SL Prn Chest Pain 03/17/19 15:15 04/09/19 22:29 Ondansetron HCl (Zofran) 4 mg Q6H PRN IVP Nausea & Vomiting 03/17/19 16:30 04/09/19 22:29 Polyethylene Glycol (Miralax) 17 gm HSPRN PRN ORAL Constipation 03/17/19 16:00 04/09/19 15:59 Quetiapine Fumarate (SEROqueL) 25 mg Q12HR ORAL 03/17/19 21:00 04/11/19 08:59 03/17/19 20:25 Ralf Rousseau MD Mar 18, 2019 07:06
[2019-03-18 07:33] LABS: EOSINOPHILS % (AUTO) 3.9 % (0.0-3.0); HEMOGLOBIN 11.9 G/DL (14.2-18.0); LYMPHOCYTES % (AUTO) 29.3 % (20.0-45.0); MEAN CORPUSCULAR VOLUME 82 FL (80-99); MONOCYTES % (AUTO) 10.1 % (1.0-10.0); NEUTROPHILS % (AUTO) 55.7 % (45.0-75.0); PLATELET COUNT 187 K/UL (150-450); RED BLOOD COUNT 4.65 M/UL (4.70-6.10); WHITE BLOOD COUNT 6.4 K/UL (4.8-10.8)
[2019-03-18 07:48] LABS: ALANINE AMINOTRANSFERASE 17 U/L (12-78); ALBUMIN 2.4 G/DL (3.4-5.0); ALBUMIN/GLOBULIN RATIO 0.6 (1.0-2.7); ALKALINE PHOSPHATASE 114 U/L (46-116); ANION GAP 4 mmol/L (5-15); ASPARTATE AMINO TRANSFERASE 21 U/L (15-37); BILIRUBIN,TOTAL 0.4 MG/DL (0.2-1.0); BLOOD UREA NITROGEN 12 mg/dL (7-18); CALCIUM 8.6 MG/DL (8.5-10.1); CARBON DIOXIDE 28 MMOL/L (21-32); CHLORIDE 106 MMOL/L (98-107); CREATININE 1.1 MG/DL (0.55-1.30); POTASSIUM 4.4 MMOL/L (3.5-5.1); SODIUM 138 MMOL/L (136-145)
[2019-03-18 08:00] VITALS: BP 103/63
--- NOTE | 2019-03-18 08:10 | NUR ---
NURSE NOTES: Pt's family member was concerned about pt's coughing. RN made Dr. Jeffries aware of the concern. ordered phenergan/codeine 5 cc Q6H PRN.
[2019-03-18] MEDS ORDERED: Promethazine/Codeine 5ml UD ORAL PRN (08:15)
--- NOTE | 2019-03-18 08:31 | Pulmonology Progress Note ---
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 DM MR Noncompliance with medication PLAN OF CARE MS floor Venous duplex + acute DVT L axillary vein on heparin gtt troponin elevated ; no peak , no susana ECHO with rEF 30 to 35%, MR diuresis, with close monitoring of volumes and cardiorenal parameters proBNP trending down guideline directed medical therapy of CHF with BB and PRESTON as per cardio DVT prophylaxis Hgb A1c 6.4, no need for basal insulin as per grounds maintenance supervisor SSI AC + HS prn hypoglycemia protocol CT head -no acute IC pathology, 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, lipid panel stable cardiac low-fat low-cholesterol NCS diet diet texture as per [facility] with total assistance with meal strict aspiration precaution case discussed and evaluated by supervising physician Subjective Allergies: Coded Allergies: No Known Allergies (Unverified , 03/10/19) Subjective remains afebrile, no leukocytosis, BS better no CP, no SOB Objective Last 24 Hour Vital Signs Date Time Temp Pulse Resp B/P (MAP) Pulse Ox O2 Delivery O2 Flow Rate FiO2 03/18/19 07:32 97 Nasal Cannula 2.0 28 03/18/19 04:00 98.5 70 19 150/84 (106) 100 03/18/19 00:26 98.2 69 19 120/57 (78) 98 03/17/19 21:18 Nasal Cannula 3.0 03/17/19 20:25 74 110/87 03/17/19 20:00 97.8 71 19 108/53 (71) 98 71 03/17/19 19:51 98 Nasal Cannula 2.0 28 03/17/19 16:00 96.8 71 20 94/61 (72) 99 03/17/19 15:30 98.7 69 20 139/52 (81) 99 03/17/19 12:00 67 03/17/19 12:00 Nasal Cannula 3.0 03/17/19 12:00 98.5 63 19 146/65 (92) 96 03/17/19 08:49 64 124/79 03/17/19 08:49 124/79 Intake and Output 03/17/19 03/18/19 18:59 06:59 Intake Total 144.288 ml 218.592 ml Output Total 200 ml Balance -55.712 ml 218.592 ml Intake Oral 120 ml IV Total 24.288 ml 218.592 ml Output Urine Total 200 ml # Bowel Movements 1 General Appearance: no acute distress, other - Turkmen speaking male HEENT: normocephalic, atraumatic, anicteric Respiratory/Chest: lungs clear, no respiratory distress, no accessory muscle use Cardiovascular: normal peripheral pulses, normal rate Abdomen: normal bowel sounds, soft, non tender Extremities: no edema, pedal pulses normal Neurologic/Psychiatric: no motor/sensory deficits, alert, responsive Musculoskeletal: normal muscle bulk Laboratory Tests 03/18/19 03:46: Activated Partial Thromboplast Time 62H 03/18/19 06:35: White Blood Count 6.4, Red Blood Count 4.65L, Hemoglobin 11.9L, Hematocrit 38.0L , Mean Corpuscular Volume 82, Mean Corpuscular Hemoglobin 25.5L, Mean Corpuscular Hemoglobin Concent 31.2L, Red Cell Distribution Width 15.0H, Platelet Count 187, Mean Platelet Volume 7.3, Neutrophils (%) (Auto) 55.7, Lymphocytes (%) (Auto) 29.3, Monocytes (%) (Auto) 10.1H, Eosinophils (%) (Auto) 3.9H, Basophils (%) (Auto) 1.0, Sodium Level 138, Potassium Level 4.4, Chloride Level 106, Carbon Dioxide Level 28, Anion Gap 4L, Blood Urea Nitrogen 12, Creatinine 1.1, Estimat Glomerular Filtration Rate , Glucose Level 132H, Calcium Level 8.6, Total Bilirubin 0.4, Aspartate Amino Transf (AST/SGOT) 21, Alanine Aminotransferase (ALT/SGPT) 17, Alkaline Phosphatase 114, Total Protein 6.1L, Albumin 2.4L, Globulin 3.7, Albumin/Globulin Ratio 0.6L Current Medications Medications (Trade) Dose Ordered Sig/Raymond Route PRN Reason Start Time Stop Time Status Last Admin Dose Admin Acetaminophen (Tylenol) 650 mg Q4H PRN ORAL fever 03/17/19 16:00 04/09/19 15:59 Aspirin (ASA) 81 mg DAILY ORAL 03/18/19 09:00 04/10/19 08:59 Carvedilol (Coreg) 3.125 mg EVERY 12 HOURS ORAL 03/17/19 21:00 1/13/20 20:59 03/17/19 20:25 Clonidine HCl (Catapres Tab) 0.1 mg Q4H PRN ORAL sbp more than 160 03/17/19 17:00 04/16/19 16:59 Dextrose (Dextrose 50%) 25 ml Q30M PRN IV Hypoglycemia 03/17/19 15:30 04/09/19 22:29 Dextrose (Dextrose 50%) 50 ml Q30M PRN IV Hypoglycemia 03/17/19 15:30 04/09/19 22:29 Furosemide (Lasix) 20 mg DAILY IV 03/18/19 09:00 04/16/19 08:59 Insulin Aspart (NovoLOG) BEFORE MEALS AND HS SUBQ 03/17/19 16:30 04/10/19 20:59 03/18/19 06:27 Lisinopril (ZestriL) 10 mg DAILY ORAL 03/18/19 09:00 04/11/19 10:29 Nitroglycerin (Ntg) 0.4 mg Q5M X 3 DOSES PRN SL Prn Chest Pain 03/17/19 15:15 04/09/19 22:29 Ondansetron HCl (Zofran) 4 mg Q6H PRN IVP Nausea & Vomiting 03/17/19 16:30 04/09/19 22:29 Polyethylene Glycol (Miralax) 17 gm HSPRN PRN ORAL Constipation 03/17/19 16:00 04/09/19 15:59 Promethazine HCl/ Codeine (Phenergan with Codeine) 5 ml Q6H PRN ORAL For Cough 03/18/19 08:15 04/17/19 08:14 Quetiapine Fumarate (SEROqueL) 25 mg Q12HR ORAL 03/17/19 21:00 04/11/19 08:59 03/17/19 20:25 Marichuy Mcdonald NP Mar 18, 2019 08:31
[2019-03-18] MEDS: Lisinopril 10mg tab ORAL SCH (09:00)
[2019-03-18] MEDS: Aspirin Baby 81mg ORAL SCH (09:44)
--- NOTE | 2019-03-18 11:05 | NUR ---
NURSE NOTES: Charge Nurse Maddison spoke with Dr. Winters. wants to hold off on PICC placement due to pt bleeding.
[2019-03-18 12:00] VITALS: BP 124/72
--- NOTE | 2019-03-18 12:15 | NUR ---
RD ASSESSMENT & RECOMMENDATIONS SEE CARE ACTIVITY FOR COMPLETE ASSESSMENT DAILY ESTIMATED NEEDS: Needs based on DM, CHF/ 72kg abw 25-30 kcals/kg 0309-6203 total kcals 1-1.5 g protein/kg 72-108 g total protein 20-22 mL/kg 3742-2580 total fluid mLs NUTRITION DIAGNOSIS: Altered nutrition related lab values R/T DM, CHF as evidenced by admitted w/ hypoglycemia w/ BG value of 26, now improved w/ POC (88 139 124 124 114), A1C 6.4, elev BNP (7204-> 5991), on diuretics. CURRENT DIET:CCHO MED, CARDIAC, liquify pureed, NTL PO DIET RECOMMENDATIONS: CCHO MED, LOW NA/ texture per EXPERIENCE PLANNING STRATEGIST ADDITIONAL RECOMMENDATIONS: * Calibrated bedscale wt for accurate CBW -> daily wt monitoring given CHF dx, on diuretics * Monitor for hypoglycemia- no events noted * Add Glucerna TID in b/w meals (approximately 1.7 carb serving each) * Monitor PO intake closely: poor/variable upon adm, now improved * Monitor lytes closely w/ lasix, replete as needed- lytes wnl
[2019-03-18] MEDS: Miralax 17gm pkt ORAL PRN (12:34)
--- NOTE | 2019-03-18 12:52 | NUR ---
PATIENT SEEN FOR DYSPHAGIA TX SESSION. CLEARED BY JULIÁN ELLINGTON. PATIENT SEEN IN CONTEXT OF NOON MEAL. HIS SPOUSE WAS PRESENT FOR FAMILY EDUCATION. VIA MATE CHIEF, EMPHASIZED THE NEED TO NOT FEED THE PATIENT WHEN HE IS SHORT OF BREATH. IF HE IS SHORT OF BREATH DURING THE MEAL, STOP/RELAX THEN RESUME MEAL. SHE VERBALIZED UNDERSTANDING. WITH P.O. TRIALS OF PUREE AND NECTAR THICK LIQUIDS: PATIENT PRESENTS WITH MILD ORAL PHASE DYSPHAGIA. PHARYNGEAL PHASE: THROAT CLEAR X1 WITH NECTAR THICK LIQUIDS OTHERWISE, PATIENT FREE FROM OVERT S/S OF ASPIRATION. CXR INDICATES IMPROVING PULMONARY STATUS. DISCUSSED FINDINGS AND RECOMMENDATIONS WITH RN AND SPOUSE.
[2019-03-18 16:00] VITALS: BP 136/72
--- NOTE | 2019-03-18 17:32 | Internal Med Progress Note ---
Subjective Physician Name Codey Winters Attending Physician Codey Winters MD Current Medications Medications (Trade) Dose Ordered Sig/Raymond Route PRN Reason Start Time Stop Time Status Last Admin Dose Admin Acetaminophen (Tylenol) 650 mg Q4H PRN ORAL fever 03/17/19 16:00 04/09/19 15:59 Aspirin (ASA) 81 mg DAILY ORAL 03/18/19 09:00 04/10/19 08:59 03/18/19 09:44 Carvedilol (Coreg) 3.125 mg EVERY 12 HOURS ORAL 03/17/19 21:00 04/11/19 20:59 03/17/19 20:25 Clonidine HCl (Catapres Tab) 0.1 mg Q4H PRN ORAL sbp more than 160 03/17/19 17:00 04/16/19 16:59 Dextrose (Dextrose 50%) 25 ml Q30M PRN IV Hypoglycemia 03/17/19 15:30 04/09/19 22:29 Dextrose (Dextrose 50%) 50 ml Q30M PRN IV Hypoglycemia 03/17/19 15:30 04/09/19 22:29 Furosemide (Lasix) 20 mg DAILY IV 03/18/19 09:00 04/16/19 08:59 03/18/19 09:44 Insulin Aspart (NovoLOG) BEFORE MEALS AND HS SUBQ 03/17/19 16:30 04/10/19 20:59 03/18/19 12:06 Lisinopril (ZestriL) 10 mg DAILY ORAL 03/18/19 09:00 04/11/19 10:29 Nitroglycerin (Ntg) 0.4 mg Q5M X 3 DOSES PRN SL Prn Chest Pain 03/17/19 15:15 04/09/19 22:29 Ondansetron HCl (Zofran) 4 mg Q6H PRN IVP Nausea & Vomiting 03/17/19 16:30 04/09/19 22:29 Polyethylene Glycol (Miralax) 17 gm HSPRN PRN ORAL Constipation 03/17/19 16:00 04/09/19 15:59 03/18/19 12:34 Promethazine HCl/ Codeine (Phenergan with Codeine) 5 ml Q6H PRN ORAL For Cough 03/18/19 08:15 04/17/19 08:14 03/18/19 12:34 Quetiapine Fumarate (SEROqueL) 25 mg Q12HR ORAL 03/17/19 21:00 04/11/19 08:59 03/18/19 09:44 Allergies: Coded Allergies: No Known Allergies (Unverified , 03/10/19) Subjective Awake, alert, responsive, denies any chest pain or shortness of breath, denies any nausea or vomiting, family member at bedside. Objective Last Vital Signs Date Time Temp Pulse Resp B/P (MAP) Pulse Ox O2 Delivery O2 Flow Rate FiO2 03/18/19 12:00 97.9 66 22 124/72 (89) 97 03/18/19 09:00 Nasal Cannula 3.0 03/18/19 07:32 28 Laboratory Tests Test 03/18/19 03:46 03/18/19 06:35 Activated Partial Thromboplast Time 62 SEC (23-33) H White Blood Count 6.4 K/UL (4.8-10.8) Red Blood Count 4.65 M/UL (4.70-6.10) L Hemoglobin 11.9 G/DL (14.2-18.0) L Hematocrit 38.0 % (42.0-52.0) L Mean Corpuscular Volume 82 FL (80-99) Mean Corpuscular Hemoglobin 25.5 PG (27.0-31.0) L Mean Corpuscular Hemoglobin Concent 31.2 G/DL (32.0-36.0) L Red Cell Distribution Width 15.0 % (11.6-14.8) H Platelet Count 187 K/UL (150-450) Mean Platelet Volume 7.3 FL (6.5-10.1) Neutrophils (%) (Auto) 55.7 % (45.0-75.0) Lymphocytes (%) (Auto) 29.3 % (20.0-45.0) Monocytes (%) (Auto) 10.1 % (1.0-10.0) H Eosinophils (%) (Auto) 3.9 % (0.0-3.0) H Basophils (%) (Auto) 1.0 % (0.0-2.0) Sodium Level 138 MMOL/L (136-145) Potassium Level 4.4 MMOL/L (3.5-5.1) Chloride Level 106 MMOL/L (98-107) Carbon Dioxide Level 28 MMOL/L (21-32) Anion Gap 4 mmol/L (5-15) L Blood Urea Nitrogen 12 mg/dL (7-18) Creatinine 1.1 MG/DL (0.55-1.30) Estimat Glomerular Filtration Rate mL/min (>60) Glucose Level 132 MG/DL (74-106) H Calcium Level 8.6 MG/DL (8.5-10.1) Total Bilirubin 0.4 MG/DL (0.2-1.0) Aspartate Amino Transf (AST/SGOT) 21 U/L (15-37) Alanine Aminotransferase (ALT/SGPT) 17 U/L (12-78) Alkaline Phosphatase 114 U/L (46-116) Total Protein 6.1 G/DL (6.4-8.2) L Albumin 2.4 G/DL (3.4-5.0) L Globulin 3.7 g/dL Albumin/Globulin Ratio 0.6 (1.0-2.7) L Intake and Output 03/17/19 03/18/19 19:00 07:00 Intake Total 168.576 ml 194.304 ml Output Total 200 ml Balance -31.424 ml 194.304 ml Intake Oral 120 ml IV Total 48.576 ml 194.304 ml Output Urine Total 200 ml # Bowel Movements 1 Objective General: No acute distress, awake and alert HEENT: NCAT, sclera anicteric, PERRL, EOMI. Neck: Supple, no significant jugular venous distention, Lungs: Good inspiratory effort, no accessory muscle use, clear to auscultation bilaterally, no Wheeze or Rales. Heart: Regular rate and rhythm, normal S1/S2, no murmurs/gallops Abdomen: soft, nontender, nondistended. Normoactive bowel sounds. : David Cath. Extremities: No Cyanosis , clubbing or edema. Right lower extremity hyperpigmentation and muscle atrophy noted. 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 DM T2 MR Noncompliance with medication PLAN OF CARE MS floor Venous duplex + acute DVT L axillary vein on heparin gtt troponin elevated ; no peak , no susana ECHO with rEF 30 to 35%, MR diuresis, with close monitoring of volumes and cardiorenal parameters proBNP trending down guideline directed medical therapy of CHF with BB and PRESTON as per cardio DVT prophylaxis Hgb A1c 6.4, no need for basal insulin as per agricultural engineering technician SSI AC + HS prn hypoglycemia protocol CT head -no acute IC pathology, 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
--- NOTE | 2019-03-18 18:00 | NUR ---
LUMBER INSPECTORSHIP CONSTRUCTION TEACHER SI; PERSISTENT HYPOGLYCEMIA T. 98.2 HR 63 RR 22 B/P 103/63 3L NC IS: LASIX IV SEROQUEL PO DCP MED/SURG STATUS
--- NOTE | 2019-03-18 18:02 | NUR ---
FLIGHT COMMUNICATIONS SPECIALIST NOTES CLINICALS FAXED TO INSURANCE FOR TOOL AND DIE ASSEMBLER IN PLACEMENT. WILL FOLLOW UP.
--- NOTE | 2019-03-18 19:20 | NUR ---
HAND-OFF: Report given to JULIÁN Morrow.
[2019-03-18 20:00] VITALS: BP 116/63
--- NOTE | 2019-03-18 20:00 | NUR ---
NURSE NOTES: received pt in bed on Nasal canula 3ml/min. no s/s of acute respiratory distress noted. no c/o pain. David catheter via gravity. family member at bed side. call light within reach. bes is the lowest position. will continue to provide plan of care.
[2019-03-19] VITALS: BP 113/63
[2019-03-19 04:00] VITALS: BP 131/59
[2019-03-19] MEDS: NovoLOG Insulin Flexpen SUBQ SCH ×4 (06:30→21:42)
--- NOTE | 2019-03-19 07:35 | NUR ---
HAND-OFF: Report given to Carl Moore RN.
--- NOTE | 2019-03-19 07:40 | NUR ---
NURSE NOTES: Received patient in bed, awake, no s/s of pain or discomfort @ this time. David is draining well to gravity with yellowish urine. No blood or sediments noted. Patient's family @ bedside. Heparin drip is on hold per speech clinician and scheduled @ 9:00am. Will follow up. Bed is in lowest position and locked. Will continue plan of care.
[2019-03-19 08:00] VITALS: BP 99/60
[2019-03-19] MEDS: Lisinopril 10mg tab ORAL SCH (08:41)
[2019-03-19] MEDS ORDERED: Heparin 25,000u/D5W 500ml 500 ML IV SCH ×3 (09:00→17:45)
[2019-03-19] MEDS: Aspirin Baby 81mg ORAL SCH (09:23)
--- NOTE | 2019-03-19 09:40 | NUR ---
NURSE NOTES: Restarted heparin drip. Patient has no episode of bleeding, urine is yellowish. PTT is 28. Per pharmacist, heparin can be started regardless of PTT level for now. Will continue to monitor.
[2019-03-19 12:00] VITALS: BP 101/63
--- NOTE | 2019-03-19 12:12 | Pulmonology Progress Note ---
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 DM MR Noncompliance with medication PLAN OF CARE MS floor Venous duplex + acute DVT L axillary vein on heparin gtt troponin elevated ; no peak , no susana ECHO with rEF 30 to 35%, MR diuresis, with close monitoring of volumes and cardiorenal parameters proBNP trending down guideline directed medical therapy of CHF with BB and PRESTON as per cardio DVT prophylaxis Hgb A1c 6.4, no need for basal insulin 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 SSI AC + HS prn hypoglycemia protocol CT head -no acute IC pathology, 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, lipid panel stable cardiac low-fat low-cholesterol NCS diet diet texture as per [facility] with total assistance with meal strict aspiration precaution case discussed and evaluated by supervising physician Subjective Allergies: Coded Allergies: No Known Allergies (Unverified , 03/10/19) Subjective remains afebrile, no leukocytosis, BS better no CP, no SOB Objective Last 24 Hour Vital Signs Date Time Temp Pulse Resp B/P (MAP) Pulse Ox O2 Delivery O2 Flow Rate FiO2 03/19/19 09:00 Nasal Cannula 3.0 03/19/19 08:41 99/60 03/19/19 08:41 64 99/60 03/19/19 08:00 97.8 64 17 99/60 (73) 100 03/19/19 04:00 97.8 66 16 131/59 (83) 100 03/19/19 00:00 98.0 69 18 113/63 (80) 98 03/18/19 21:10 73 116/63 03/18/19 21:00 Nasal Cannula 3.0 03/18/19 20:00 96.7 73 12 116/63 (80) 97 03/18/19 19:58 97 Nasal Cannula 2.0 28 03/18/19 16:00 98.2 40 22 136/72 (93) 98 Intake and Output 03/18/19 03/19/19 19:00 07:00 Intake Total 600 ml 120 ml Output Total 1900 ml 750 ml Balance -1300 ml -630 ml Intake Oral 600 ml 120 ml Output Urine Total 1900 ml 750 ml # Voids 2 Objective General Appearance: no acute distress, Danish speaking male HEENT: normocephalic, atraumatic, anicteric Respiratory/Chest: lungs clear, no respiratory distress, no accessory muscle use Cardiovascular: normal peripheral pulses, normal rate Abdomen: normal bowel sounds, soft, non tender Extremities: no edema, pedal pulses normal Neurologic/Psychiatric: no motor/sensory deficits, alert, responsive Musculoskeletal: normal muscle bulk Laboratory Tests 03/19/19 09:00: Activated Partial Thromboplast Time 28 Current Medications Medications (Trade) Dose Ordered Sig/Raymond Route PRN Reason Start Time Stop Time Status Last Admin Dose Admin Acetaminophen (Tylenol) 650 mg Q4H PRN ORAL fever 03/17/19 16:00 04/09/19 15:59 Aspirin (ASA) 81 mg DAILY ORAL 03/18/19 09:00 04/10/19 08:59 03/19/19 09:23 Carvedilol (Coreg) 3.125 mg EVERY 12 HOURS ORAL 03/17/19 21:00 04/11/19 20:59 03/18/19 21:10 Clonidine HCl (Catapres Tab) 0.1 mg Q4H PRN ORAL sbp more than 160 03/17/19 17:00 04/16/19 16:59 Dextrose (Dextrose 50%) 25 ml Q30M PRN IV Hypoglycemia 03/17/19 15:30 04/09/19 22:29 Dextrose (Dextrose 50%) 50 ml Q30M PRN IV Hypoglycemia 03/17/19 15:30 04/09/19 22:29 Furosemide (Lasix) 20 mg DAILY IV 03/18/19 09:00 04/16/19 08:59 03/19/19 09:23 Heparin Sodium/ Dextrose 500 ml @ 23.514 mls/ hr ADJUST PER PROTOCOL IV 03/19/19 09:30 04/18/19 08:59 03/19/19 09:40 Insulin Aspart (NovoLOG) BEFORE MEALS AND HS SUBQ 03/17/19 16:30 04/10/19 20:59 03/18/19 21:12 Lisinopril (ZestriL) 10 mg DAILY ORAL 03/18/19 09:00 04/11/19 10:29 Nitroglycerin (Ntg) 0.4 mg Q5M X 3 DOSES PRN SL Prn Chest Pain 03/17/19 15:15 04/09/19 22:29 Ondansetron HCl (Zofran) 4 mg Q6H PRN IVP Nausea & Vomiting 03/17/19 16:30 04/09/19 22:29 Polyethylene Glycol (Miralax) 17 gm HSPRN PRN ORAL Constipation 03/17/19 16:00 04/09/19 15:59 03/18/19 12:34 Promethazine HCl/ Codeine (Phenergan with Codeine) 5 ml Q6H PRN ORAL For Cough 03/18/19 08:15 04/17/19 08:14 03/18/19 12:34 Quetiapine Fumarate (SEROqueL) 25 mg Q12HR ORAL 03/17/19 21:00 04/11/19 08:59 03/19/19 09:23 Marichuy Mcdonald NP Mar 19, 2019 12:12
[2019-03-19] MEDS ORDERED: NS 275ml ONE (14:22)
[2019-03-19 16:00] VITALS: BP 123/58
--- NOTE | 2019-03-19 17:13 | Internal Med Progress Note ---
Subjective Date of Service: Mar 19, 2019 Physician Name Crescencio Lock Attending Physician Codey Winters MD Current Medications Medications (Trade) Dose Ordered Sig/Raymond Route PRN Reason Start Time Stop Time Status Last Admin Dose Admin Acetaminophen (Tylenol) 650 mg Q4H PRN ORAL fever 03/17/19 16:00 04/09/19 15:59 Aspirin (ASA) 81 mg DAILY ORAL 03/18/19 09:00 04/10/19 08:59 03/19/19 09:23 Carvedilol (Coreg) 3.125 mg EVERY 12 HOURS ORAL 03/17/19 21:00 04/11/19 20:59 03/18/19 21:10 Clonidine HCl (Catapres Tab) 0.1 mg Q4H PRN ORAL sbp more than 160 03/17/19 17:00 04/16/19 16:59 Dextrose (Dextrose 50%) 25 ml Q30M PRN IV Hypoglycemia 03/17/19 15:30 04/09/19 22:29 Dextrose (Dextrose 50%) 50 ml Q30M PRN IV Hypoglycemia 03/17/19 15:30 04/09/19 22:29 Furosemide (Lasix) 20 mg DAILY IV 03/18/19 09:00 04/16/19 08:59 03/19/19 09:23 Heparin Sodium/ Dextrose 500 ml @ 23.514 mls/ hr ADJUST PER PROTOCOL IV 03/19/19 09:30 04/18/19 08:59 03/19/19 09:40 Insulin Aspart (NovoLOG) BEFORE MEALS AND HS SUBQ 03/17/19 16:30 04/10/19 20:59 03/19/19 16:54 Lisinopril (ZestriL) 10 mg DAILY ORAL 03/18/19 09:00 04/11/19 10:29 Nitroglycerin (Ntg) 0.4 mg Q5M X 3 DOSES PRN SL Prn Chest Pain 03/17/19 15:15 04/09/19 22:29 Ondansetron HCl (Zofran) 4 mg Q6H PRN IVP Nausea & Vomiting 03/17/19 16:30 04/09/19 22:29 Polyethylene Glycol (Miralax) 17 gm HSPRN PRN ORAL Constipation 03/17/19 16:00 04/09/19 15:59 03/18/19 12:34 Promethazine HCl/ Codeine (Phenergan with Codeine) 5 ml Q6H PRN ORAL For Cough 03/18/19 08:15 04/17/19 08:14 03/18/19 12:34 Quetiapine Fumarate (SEROqueL) 25 mg Q12HR ORAL 03/17/19 21:00 04/11/19 08:59 03/19/19 09:23 Allergies: Coded Allergies: No Known Allergies (Unverified , 03/10/19) ROS Limited/Unobtainable: Yes Subjective 78 YO M admitted with altered mental status. Cover for Int Med-Dr Winters. Objective Last Vital Signs Date Time Temp Pulse Resp B/P (MAP) Pulse Ox O2 Delivery O2 Flow Rate FiO2 03/19/19 16:00 97.2 69 18 123/58 (79) 96 03/19/19 09:00 Nasal Cannula 3.0 03/18/19 19:58 28 Laboratory Tests Test 03/19/19 09:00 Activated Partial Thromboplast Time 28 SEC (23-33) Intake and Output 03/18/19 03/19/19 19:00 07:00 Intake Total 600 ml 120 ml Output Total 1900 ml 750 ml Balance -1300 ml -630 ml Intake Oral 600 ml 120 ml Output Urine Total 1900 ml 750 ml # Voids 2 Objective PHYSICAL EXAMINATION: GENERAL: The patient is awake, responsive, and sluggish. HEAD AND NECK: Pupils are reactive to light. Anicteric. NECK: Supple. No jugular venous distention. LUNGS: Good air entry. No wheeze or rales. Decreased air in the bases. HEART: S1, S2. Distant heart sounds. No murmur or gallops. ABDOMEN: Soft, nondistended, and nontender. Mildly obese. EXTREMITIES: No cyanosis or clubbing. Hyperpigmentation on the right lower extremity was noted and trace ankle edema. NEUROLOGIC: Cranial nerves II through XII are grossly intact. The patient is moving all the extremities spontaneously. Gait was not assessed due to the patient's status. RECTAL/GENITOURINARY: Refused and deferred. PSYCHIATRIC: Mood and affect is intact. Assessment/Plan Assessment/Plan ASSESSMENT: 1. Altered mental status, most likely secondary to toxic metabolic encephalopathy. 2. Diabetes type 2. 3. Congestive heart failure. 4. Hypertension. 5. Sick sinus syndrome status post pacemaker. 6. Obesity. 7. Discharge planning PLAN: 1. Med/Surg 2 Endocrinology=[facility] 3. Monitor blood glucose level closely. Novolog sliding scale 4. Resume home medication. 5. Duplex of lower extremity. 6. Discussed the case with Dr. Jeffries, Pulmonary Critical Care, as well as Cardiology consultation. 7. Code status, Full Code. Crescencio Lock MD Mar 19, 2019 17:13
[2019-03-19] MEDS ORDERED: Heparin 5000 units/ml inj IV SCH (17:45)
--- NOTE | 2019-03-19 18:28 | NUR ---
NURSE NOTES: PTT came back 48, heparin drip dose was adjusted by pharmacist and heparin 3000 units IV bolus given. No bleeding noted. Will continue to monitor.
--- NOTE | 2019-03-19 19:00 | NUR ---
NURSE NOTES: No episodes of bleeding noted during shift.
--- NOTE | 2019-03-19 19:26 | NUR ---
HAND-OFF: Report given to Cathy and endorsed about heparin drip.
--- NOTE | 2019-03-19 19:30 | NUR ---
NURSE NOTES: Pt. received sitting in bed with sister at bedside. AAOx2, no signs of pain, N/C at 2L, no shortness of breath or signs of respiratory distress. IV site right wrist 22g asymptomatic, patent and intact running heparin drip. David intact and draining well. Bed is low and locked, side rails x2 are up, bed alarm active, and call light in reach. Will continue to monitor.
[2019-03-19 20:00] VITALS: BP 114/70
--- NOTE | 2019-03-19 20:48 | Cardiology Progress Note ---
Assessment/Plan Problem List: (1) Cardiomyopathy (2) Acute CHF (3) Cardiac LV ejection fraction 30-35% Status: stable, progressing Status Narrative CHF, with EF 30s, - acute on chronic - overall stable. Improved pulm congestion , on iv lasix ? ischemic v nonischemic cm s/p ICD placement Assessment/Plan Continue iv diuretics, lisinopril for afterload reduction, and coreg Uptitrate meds as tolerated, based on BP ICD interrogation ? ischemia w/u if not previously done. Subjective ROS Limited/Unobtainable: No Subjective Cardiology for Dr. Kennedy Mr White is comfortable. No c/o chest pain or dyspnea. Objective Last 24 Hour Vital Signs Date Time Temp Pulse Resp B/P (MAP) Pulse Ox O2 Delivery O2 Flow Rate FiO2 03/19/19 16:00 97.2 69 18 123/58 (79) 96 03/19/19 12:00 97.9 68 18 101/63 (76) 100 03/19/19 09:00 Nasal Cannula 3.0 03/19/19 08:41 99/60 03/19/19 08:41 64 99/60 03/19/19 08:00 97.8 64 17 99/60 (73) 100 03/19/19 04:00 97.8 66 16 131/59 (83) 100 03/19/19 00:00 98.0 69 18 113/63 (80) 98 03/18/19 21:10 73 116/63 03/18/19 21:00 Nasal Cannula 3.0 General Appearance: WD/WN, no apparent distress, alert EENT: PERRL/EOMI Neck: supple, no JVD Rhythm: NSR Cardiovascular: normal rate, regular rhythm, systolic murmur - ii/vi HSM along LSB Respiratory/Chest: other - R lower field rales Abdomen: normal bowel sounds, non tender, soft Extremities: non-tender, no swelling Intake and Output 03/18/19 03/19/19 19:00 07:00 Intake Total 600 ml 120 ml Output Total 1900 ml 750 ml Balance -1300 ml -630 ml Intake Oral 600 ml 120 ml Output Urine Total 1900 ml 750 ml # Voids 2 Laboratory Tests Test 03/19/19 09:00 03/19/19 16:09 Activated Partial Thromboplast Time 28 SEC (23-33) 48 SEC (23-33) H Sil Alva MD Mar 19, 2019 20:48
[2019-03-20] VITALS: BP 117/65
--- NOTE | 2019-03-20 01:15 | Geriatric Medicine Prog Note ---
DATE: 03/19/2019 NOTE: UNCLEAR AUDIO SUBJECTIVE: The patient OBJECTIVE: VITAL SIGNS: Stable. RESPIRATORY: Clear. CARDIOVASCULAR: LABORATORY DATA: Glucose was 106 this morning . Spencer Bueno M.D. DR: SERGE JOB#: [id number] CC:
--- NOTE | 2019-03-20 01:20 | NUR ---
NURSE NOTES: Patient ptt resulted, new dose, spoke to pharmacy. New PTT time draw noted 0745, ordered. Will follow up.
[2019-03-20] MEDS ORDERED: Heparin 25,000u/D5W 500ml 500 ML IV SCH ×3 (01:30→09:30)
[2019-03-20 04:00] VITALS: BP 125/87
[2019-03-20 05:46] LABS: BASOPHILS % (AUTO) 1.4 % (0.0-2.0); EOSINOPHILS % (AUTO) 3.9 % (0.0-3.0); HEMATOCRIT 37.3 % (42.0-52.0); HEMOGLOBIN 11.7 G/DL (14.2-18.0); LYMPHOCYTES % (AUTO) 31.7 % (20.0-45.0); MEAN CORPUSCULAR VOLUME 82 FL (80-99); MONOCYTES % (AUTO) 11.1 % (1.0-10.0); NEUTROPHILS % (AUTO) 51.9 % (45.0-75.0); PLATELET COUNT 194 K/UL (150-450); RED BLOOD COUNT 4.54 M/UL (4.70-6.10); RED CELL DISTRIBUTION WIDTH 15.4 % (11.6-14.8); WHITE BLOOD COUNT 5.7 K/UL (4.8-10.8)
[2019-03-20 05:52] LABS: ANION GAP 6 mmol/L (5-15); BLOOD UREA NITROGEN 14 mg/dL (7-18); CALCIUM 8.9 MG/DL (8.5-10.1); CARBON DIOXIDE 29 MMOL/L (21-32); CHLORIDE 108 MMOL/L (98-107); POTASSIUM 4.3 MMOL/L (3.5-5.1); SODIUM 143 MMOL/L (136-145)
--- NOTE | 2019-03-20 06:00 | NUR ---
NURSE NOTES: New iv site on left lower extremity as per MD order.
[2019-03-20] MEDS: NovoLOG Insulin Flexpen SUBQ SCH ×4 (06:14→20:48)
--- NOTE | 2019-03-20 07:30 | NUR ---
NURSE NOTES: Report received from Steve GALLEGO. Patient awake, sister at bedside. Patient not in respiratory distress at this time and denies chest pain. Nasal canula in place 2 L. [address] on left foot, heparin running at 17 units / kg / hr. Awaiting new PTT value. No signs and symptoms of bleeding. Urine tafoya bag free of blood. Boosted patient in bed. Breakfast at bedside, will assist with feed. Bed locked, lowest position and alarmed. Call light within reach. Will continue to monitor.
--- NOTE | 2019-03-20 07:30 | NUR ---
HAND-OFF: Report given to Aliyah Henry and ALIYAH Louis.
[2019-03-20 08:00] VITALS: BP 126/68
[2019-03-20] MEDS: Aspirin Baby 81mg ORAL SCH (08:46)
[2019-03-20] MEDS: Lisinopril 10mg tab ORAL SCH (08:46)
[2019-03-20] MEDS ORDERED: Heparin 5000 units/ml inj IV SCH (09:30)
--- NOTE | 2019-03-20 09:48 | NUR ---
NURSE NOTES: Heparin rate changed to 19 units/kg/hr due to new PTT value of 63. Pharmacy came with new label. Weight verified. Heparin bolus flush of 3,000 units given. No signs of bleeding. Will continue to follow plan of care.
[2019-03-20 12:00] VITALS: BP 108/53
--- NOTE | 2019-03-20 13:07 | Pulmonology Progress Note ---
Assessment/Plan Assessment/Plan ASSESSMENT Acute DVT of axillary vein L arm Abnormal cardiac enzymes Hypoglycemia CHF with systolic dysfunction Cardiomyopathy EF 30 to 35% Acute metabolic encephalopathy Biventricular pacemaker 2 to SSS DM MR Noncompliance with medication PLAN OF CARE MS floor Venous duplex + acute DVT L axillary vein on heparin gtt troponin elevated ; no peak , no susana ECHO with rEF 30 to 35%, MR diuresis, with close monitoring of volumes and cardiorenal parameters proBNP trending down guideline directed medical therapy of CHF with BB and PRESTON as per cardio cardio recommended ICD interrogation and ischemia w/u if not previously done. 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, lipid panel stable cardiac low-fat low-cholesterol NCS diet diet texture as per ST recs with total assistance with meal strict aspiration precaution discussed with cardio, will dc heparin gtt, start on Eliquis 10 mg po bid x 10 days, after 10 days 5 mg po bid case discussed and evaluated by supervising physician Subjective Allergies: Coded Allergies: No Known Allergies (Unverified , 03/10/19) Subjective remains afebrile, no leukocytosis, BS better no CP, no SOB Objective Last 24 Hour Vital Signs Date Time Temp Pulse Resp B/P (MAP) Pulse Ox O2 Delivery O2 Flow Rate FiO2 03/20/19 12:00 97.8 62 18 108/53 (71) 96 03/20/19 09:00 Nasal Cannula 3.0 03/20/19 08:46 130/80 03/20/19 08:46 80 130/80 03/20/19 08:00 97.7 79 19 126/68 (87) 94 03/20/19 04:00 98.7 75 18 125/87 (100) 92 03/20/19 00:00 98.1 70 16 117/65 (82) 98 03/19/19 21:36 86 114/70 03/19/19 21:00 Nasal Cannula 3.0 03/19/19 20:00 97.9 86 18 114/70 (85) 100 03/19/19 16:00 97.2 69 18 123/58 (79) 96 Intake and Output 03/19/19 03/20/19 19:00 07:00 Intake Total 788.112 ml 898.338 ml Output Total 800 ml 650 ml Balance -11.888 ml 248.338 ml Intake Oral 600 ml 600 ml IV Total 188.112 ml 298.338 ml Output Urine Total 800 ml 650 ml Objective General Appearance: no acute distress, [place] speaking male HEENT: normocephalic, atraumatic, anicteric Respiratory/Chest: lungs clear, no respiratory distress, no accessory muscle use Cardiovascular: normal peripheral pulses, normal rate Abdomen: normal bowel sounds, soft, non tender Extremities: no edema, pedal pulses normal Neurologic/Psychiatric: no motor/sensory deficits, alert, responsive Musculoskeletal: normal muscle bulk Laboratory Tests 03/19/19 16:09: Activated Partial Thromboplast Time 48H 03/20/19 00:25: Activated Partial Thromboplast Time 112H 03/20/19 04:50: White Blood Count 5.7, Red Blood Count 4.54L, Hemoglobin 11.7L, Hematocrit 37.3L , Mean Corpuscular Volume 82, Mean Corpuscular Hemoglobin 25.7L, Mean Corpuscular Hemoglobin Concent 31.3L, Red Cell Distribution Width 15.4H, Platelet Count 194, Mean Platelet Volume 5.9L, Neutrophils (%) (Auto) 51.9, Lymphocytes (%) (Auto) 31.7, Monocytes (%) (Auto) 11.1H, Eosinophils (%) (Auto) 3.9H, Basophils (%) (Auto) 1.4, Sodium Level 143, Potassium Level 4.3, Chloride Level 108H, Carbon Dioxide Level 29, Anion Gap 6, Blood Urea Nitrogen 14, Creatinine 1.0, Estimat Glomerular Filtration Rate , Glucose Level 62L, Calcium Level 8.9 03/20/19 07:45: Activated Partial Thromboplast Time 63H Current Medications Medications (Trade) Dose Ordered Sig/Raymond Route PRN Reason Start Time Stop Time Status Last Admin Dose Admin Acetaminophen (Tylenol) 650 mg Q4H PRN ORAL fever 03/17/19 16:00 04/09/19 15:59 Aspirin (ASA) 81 mg DAILY ORAL 03/18/19 09:00 04/10/19 08:59 03/20/19 08:46 Carvedilol (Coreg) 3.125 mg EVERY 12 HOURS ORAL 03/17/19 21:00 04/11/19 20:59 03/20/19 08:46 Clonidine HCl (Catapres Tab) 0.1 mg Q4H PRN ORAL sbp more than 160 03/17/19 17:00 04/16/19 16:59 Dextrose (Dextrose 50%) 25 ml Q30M PRN IV Hypoglycemia 03/17/19 15:30 04/09/19 22:29 Dextrose (Dextrose 50%) 50 ml Q30M PRN IV Hypoglycemia 03/17/19 15:30 04/09/19 22:29 Furosemide (Lasix) 20 mg DAILY IV 03/18/19 09:00 04/16/19 08:59 03/20/19 08:47 Heparin Sodium/ Dextrose 500 ml @ 27.923 mls/ hr ADJUST PER PROTOCOL IV 03/20/19 09:30 04/19/19 09:29 03/20/19 09:41 Insulin Aspart (NovoLOG) BEFORE MEALS AND HS SUBQ 03/17/19 16:30 04/10/19 20:59 03/20/19 11:51 Lisinopril (ZestriL) 10 mg DAILY ORAL 03/18/19 09:00 04/11/19 10:29 03/20/19 08:46 Nitroglycerin (Ntg) 0.4 mg Q5M X 3 DOSES PRN SL Prn Chest Pain 03/17/19 15:15 04/09/19 22:29 Ondansetron HCl (Zofran) 4 mg Q6H PRN IVP Nausea & Vomiting 03/17/19 16:30 04/09/19 22:29 Polyethylene Glycol (Miralax) 17 gm HSPRN PRN ORAL Constipation 03/17/19 16:00 04/09/19 15:59 03/18/19 12:34 Promethazine HCl/ Codeine (Phenergan with Codeine) 5 ml Q6H PRN ORAL For Cough 03/18/19 08:15 04/17/19 08:14 03/18/19 12:34 Quetiapine Fumarate (SEROqueL) 25 mg Q12HR ORAL 03/17/19 21:00 04/11/19 08:59 03/20/19 08:43 Marichuy Mcdonald NP Mar 20, 2019 13:07
--- NOTE | 2019-03-20 14:13 | Cardiology Progress Note ---
Assessment/Plan Problem List: (1) Cardiomyopathy (2) Acute CHF (3) Cardiac LV ejection fraction 30-35% (4) Acute DVT (deep venous thrombosis) Status: stable, progressing Status Narrative CHF, with EF 30s, - acute on chronic - overall stable. Improved pulm congestion , on iv lasix. I/os recorded at - 13 L - ? accurate ? ischemic v nonischemic cm Acute DVT - L axillary vein PAF s/p ICD placement - ? [facility] Assessment/Plan Continue iv diuretics, lisinopril for afterload reduction, and coreg Uptitrate meds as tolerated, based on BP ICD interrogation will be done tomorrow. Based on EKG, it appears that pt has bivent icd, w/ appropriate RV, LV capture ? ischemia w/u if not previously done. Subjective ROS Limited/Unobtainable: No Subjective Cardiology for Dr. Kennedy Mr White is comfortable. He denies dyspnea, chest pain, abd pain, Objective Last 24 Hour Vital Signs Date Time Temp Pulse Resp B/P (MAP) Pulse Ox O2 Delivery O2 Flow Rate FiO2 03/20/19 12:00 97.8 62 18 108/53 (71) 96 03/20/19 09:00 Nasal Cannula 3.0 03/20/19 08:46 130/80 03/20/19 08:46 80 130/80 03/20/19 08:00 97.7 79 19 126/68 (87) 94 03/20/19 04:00 98.7 75 18 125/87 (100) 92 03/20/19 00:00 98.1 70 16 117/65 (82) 98 03/19/19 21:36 86 114/70 03/19/19 21:00 Nasal Cannula 3.0 03/19/19 20:00 97.9 86 18 114/70 (85) 100 03/19/19 16:00 97.2 69 18 123/58 (79) 96 General Appearance: WD/WN, no apparent distress EENT: PERRL/EOMI Neck: supple, no JVD Rhythm: NSR, Afib Cardiovascular: normal rate, regular rhythm, no gallop/murmur, irregularly irregular Respiratory/Chest: lungs clear Abdomen: normal bowel sounds, non tender, soft Extremities: no swelling Intake and Output 03/19/19 03/20/19 19:00 07:00 Intake Total 788.112 ml 898.338 ml Output Total 800 ml 650 ml Balance -11.888 ml 248.338 ml Intake Oral 600 ml 600 ml IV Total 188.112 ml 298.338 ml Output Urine Total 800 ml 650 ml Laboratory Tests Test 03/19/19 16:09 03/20/19 00:25 03/20/19 04:50 03/20/19 07:45 Activated Partial Thromboplast Time 48 SEC (23-33) H 112 SEC (23-33) H 63 SEC (23-33) H White Blood Count 5.7 K/UL (4.8-10.8) Red Blood Count 4.54 M/UL (4.70-6.10) L Hemoglobin 11.7 G/DL (14.2-18.0) L Hematocrit 37.3 % (42.0-52.0) L Mean Corpuscular Volume 82 FL (80-99) Mean Corpuscular Hemoglobin 25.7 PG (27.0-31.0) L Mean Corpuscular Hemoglobin Concent 31.3 G/DL (32.0-36.0) L Red Cell Distribution Width 15.4 % (11.6-14.8) H Platelet Count 194 K/UL (150-450) Mean Platelet Volume 5.9 FL (6.5-10.1) L Neutrophils (%) (Auto) 51.9 % (45.0-75.0) Lymphocytes (%) (Auto) 31.7 % (20.0-45.0) Monocytes (%) (Auto) 11.1 % (1.0-10.0) H Eosinophils (%) (Auto) 3.9 % (0.0-3.0) H Basophils (%) (Auto) 1.4 % (0.0-2.0) Sodium Level 143 MMOL/L (136-145) Potassium Level 4.3 MMOL/L (3.5-5.1) Chloride Level 108 MMOL/L (98-107) H Carbon Dioxide Level 29 MMOL/L (21-32) Anion Gap 6 mmol/L (5-15) Blood Urea Nitrogen 14 mg/dL (7-18) Creatinine 1.0 MG/DL (0.55-1.30) Estimat Glomerular Filtration Rate mL/min (>60) Glucose Level 62 MG/DL (74-106) L Calcium Level 8.9 MG/DL (8.5-10.1) Sil Alva MD Mar 20, 2019 14:13
--- NOTE | 2019-03-20 15:55 | Internal Med Progress Note ---
Subjective Date of Service: Mar 20, 2019 Physician Name Crescencio Lock Attending Physician Codey Winters MD Current Medications Medications (Trade) Dose Ordered Sig/Raymond Route PRN Reason Start Time Stop Time Status Last Admin Dose Admin Acetaminophen (Tylenol) 650 mg Q4H PRN ORAL fever 03/17/19 16:00 04/09/19 15:59 Aspirin (ASA) 81 mg DAILY ORAL 03/18/19 09:00 04/10/19 08:59 03/20/19 08:46 Carvedilol (Coreg) 3.125 mg EVERY 12 HOURS ORAL 03/17/19 21:00 04/11/19 20:59 03/20/19 08:46 Clonidine HCl (Catapres Tab) 0.1 mg Q4H PRN ORAL sbp more than 160 03/17/19 17:00 04/16/19 16:59 Dextrose (Dextrose 50%) 25 ml Q30M PRN IV Hypoglycemia 03/17/19 15:30 04/09/19 22:29 Dextrose (Dextrose 50%) 50 ml Q30M PRN IV Hypoglycemia 03/17/19 15:30 04/09/19 22:29 Furosemide (Lasix) 20 mg DAILY IV 03/18/19 09:00 04/16/19 08:59 03/20/19 08:47 Heparin Sodium/ Dextrose 500 ml @ 27.923 mls/ hr ADJUST PER PROTOCOL IV 03/20/19 09:30 04/19/19 09:29 03/20/19 09:41 Insulin Aspart (NovoLOG) BEFORE MEALS AND HS SUBQ 03/17/19 16:30 04/10/19 20:59 03/20/19 11:51 Lisinopril (ZestriL) 10 mg DAILY ORAL 03/18/19 09:00 04/11/19 10:29 03/20/19 08:46 Nitroglycerin (Ntg) 0.4 mg Q5M X 3 DOSES PRN SL Prn Chest Pain 03/17/19 15:15 04/09/19 22:29 Ondansetron HCl (Zofran) 4 mg Q6H PRN IVP Nausea & Vomiting 03/17/19 16:30 04/09/19 22:29 Polyethylene Glycol (Miralax) 17 gm HSPRN PRN ORAL Constipation 03/17/19 16:00 04/09/19 15:59 03/18/19 12:34 Promethazine HCl/ Codeine (Phenergan with Codeine) 5 ml Q6H PRN ORAL For Cough 03/18/19 08:15 04/17/19 08:14 03/18/19 12:34 Quetiapine Fumarate (SEROqueL) 25 mg Q12HR ORAL 03/17/19 21:00 04/11/19 08:59 03/20/19 08:43 Allergies: Coded Allergies: No Known Allergies (Unverified , 03/10/19) ROS Limited/Unobtainable: Yes Subjective 78 YO M admitted with altered mental status. Cover for Int Med-Dr Winters. Objective Last Vital Signs Date Time Temp Pulse Resp B/P (MAP) Pulse Ox O2 Delivery O2 Flow Rate FiO2 03/20/19 12:00 97.8 62 18 108/53 (71) 96 03/20/19 09:00 Nasal Cannula 3.0 03/18/19 19:58 28 Laboratory Tests Test 03/19/19 16:09 03/20/19 00:25 03/20/19 04:50 03/20/19 07:45 Activated Partial Thromboplast Time 48 SEC (23-33) H 112 SEC (23-33) H 63 SEC (23-33) H White Blood Count 5.7 K/UL (4.8-10.8) Red Blood Count 4.54 M/UL (4.70-6.10) L Hemoglobin 11.7 G/DL (14.2-18.0) L Hematocrit 37.3 % (42.0-52.0) L Mean Corpuscular Volume 82 FL (80-99) Mean Corpuscular Hemoglobin 25.7 PG (27.0-31.0) L Mean Corpuscular Hemoglobin Concent 31.3 G/DL (32.0-36.0) L Red Cell Distribution Width 15.4 % (11.6-14.8) H Platelet Count 194 K/UL (150-450) Mean Platelet Volume 5.9 FL (6.5-10.1) L Neutrophils (%) (Auto) 51.9 % (45.0-75.0) Lymphocytes (%) (Auto) 31.7 % (20.0-45.0) Monocytes (%) (Auto) 11.1 % (1.0-10.0) H Eosinophils (%) (Auto) 3.9 % (0.0-3.0) H Basophils (%) (Auto) 1.4 % (0.0-2.0) Sodium Level 143 MMOL/L (136-145) Potassium Level 4.3 MMOL/L (3.5-5.1) Chloride Level 108 MMOL/L (98-107) H Carbon Dioxide Level 29 MMOL/L (21-32) Anion Gap 6 mmol/L (5-15) Blood Urea Nitrogen 14 mg/dL (7-18) Creatinine 1.0 MG/DL (0.55-1.30) Estimat Glomerular Filtration Rate mL/min (>60) Glucose Level 62 MG/DL (74-106) L Calcium Level 8.9 MG/DL (8.5-10.1) Intake and Output 03/19/19 03/20/19 19:00 07:00 Intake Total 788.112 ml 898.338 ml Output Total 800 ml 650 ml Balance -11.888 ml 248.338 ml Intake Oral 600 ml 600 ml IV Total 188.112 ml 298.338 ml Output Urine Total 800 ml 650 ml Objective PHYSICAL EXAMINATION: GENERAL: The patient is awake, responsive, and sluggish. HEAD AND NECK: Pupils are reactive to light. Anicteric. NECK: Supple. No jugular venous distention. LUNGS: Good air entry. No wheeze or rales. Decreased air in the bases. HEART: S1, S2. Distant heart sounds. No murmur or gallops. ABDOMEN: Soft, nondistended, and nontender. Mildly obese. EXTREMITIES: No cyanosis or clubbing. Hyperpigmentation on the right lower extremity was noted and trace ankle edema. NEUROLOGIC: Cranial nerves II through XII are grossly intact. The patient is moving all the extremities spontaneously. Gait was not assessed due to the patient's status. RECTAL/GENITOURINARY: Refused and deferred. PSYCHIATRIC: Mood and affect is intact. Assessment/Plan Assessment/Plan ASSESSMENT: 1. Altered mental status, most likely secondary to toxic metabolic encephalopathy. 2. Diabetes type 2. 3. Congestive heart failure. 4. Hypertension. 5. Sick sinus syndrome status post pacemaker. 6. Obesity. 7. Discharge planning PLAN: 1. Med/Surg 2 Endocrinology=[facility] 3. Monitor blood glucose level closely. Novolog sliding scale 4. Resume home medication. 5. Duplex of lower extremity. 6. Discussed the case with Dr. Jeffries, Pulmonary Critical Care, as well as Cardiology consultation. 7. Code status, Full Code. Crescencio Lock MD Mar 20, 2019 15:55
[2019-03-20 16:00] VITALS: BP 134/63
--- NOTE | 2019-03-20 17:26 | NUR ---
HAND-OFF: Report given to
[2019-03-20] MEDS: Eliquis 5mg tablet ORAL SCH (18:06)
--- NOTE | 2019-03-20 19:30 | NUR ---
NURSE NOTES: Patient awake in bed, no complaints of pain at this time. Call light in reach. Bed in lowest position, lock engaged and alarm on. Family at bedside. Will continue to monitor.
[2019-03-20 20:00] VITALS: BP 123/66
[2019-03-21] VITALS (7 sets, daily range): BP systolic 103–127; BP diastolic 49–67
[2019-03-21] MEDS: NovoLOG Insulin Flexpen SUBQ SCH ×4 (06:09→20:46)
[2019-03-21 06:47] LABS: BASOPHILS % (AUTO) 1.4 % (0.0-2.0); EOSINOPHILS % (AUTO) 2.9 % (0.0-3.0); HEMOGLOBIN 11.8 G/DL (14.2-18.0); LYMPHOCYTES % (AUTO) 27.4 % (20.0-45.0); MEAN CORPUSCULAR VOLUME 82 FL (80-99); MONOCYTES % (AUTO) 10.4 % (1.0-10.0); NEUTROPHILS % (AUTO) 57.9 % (45.0-75.0); PLATELET COUNT 221 K/UL (150-450); RED BLOOD COUNT 4.66 M/UL (4.70-6.10); RED CELL DISTRIBUTION WIDTH 15.3 % (11.6-14.8); WHITE BLOOD COUNT 6.4 K/UL (4.8-10.8)
[2019-03-21 06:52] LABS: ANION GAP 4 mmol/L (5-15); BLOOD UREA NITROGEN 12 mg/dL (7-18); CALCIUM 8.7 MG/DL (8.5-10.1); CARBON DIOXIDE 28 MMOL/L (21-32); CHLORIDE 107 MMOL/L (98-107); CREATININE 1.2 MG/DL (0.55-1.30); SODIUM 139 MMOL/L (136-145)
--- NOTE | 2019-03-21 07:06 | General Progress Note ---
Assessment/Plan Problem List: (1) Diabetes mellitus ICD Codes: E11.9 - Type 2 diabetes mellitus without complications SNOMED: 57122372 (2) Hypoglycemia ICD Codes: E16.2 - Hypoglycemia, unspecified SNOMED: 649179090 (3) Acute CHF ICD Codes: I50.9 - Heart failure, unspecified SNOMED: 86415569, 181953256, 325017659 (4) Acute metabolic encephalopathy ICD Codes: G93.41 - Metabolic encephalopathy SNOMED: 26534188, 085759608 (5) Cardiac LV ejection fraction 30-35% ICD Codes: R94.30 - Abnormal result of cardiovascular function study, unspecified SNOMED: 04480714, 404976325 (6) Pacemaker ICD Codes: Z95.0 - Presence of cardiac pacemaker SNOMED: 683745266 Status: stable, progressing Assessment/Plan: no need for basal insulin Novolog sliding scale ac / hs hypoglycemia protocol in order Subjective ROS Limited/Unobtainable: Yes Allergies: Coded Allergies: No Known Allergies (Unverified , 03/10/19) Subjective events noted fair glycemic control with mild hypoglycemia Item Value Date Time Bedside Blood Glucose 112 mg/dl 03/21/19 0608 Bedside Blood Glucose 182 mg/dl H 03/20/19 2100 Bedside Blood Glucose 144 mg/dl H 03/20/19 1726 Bedside Blood Glucose 166 mg/dl H 03/20/19 1151 Bedside Blood Glucose 103 mg/dl 03/20/19 0614 Objective Last 24 Hour Vital Signs Date Time Temp Pulse Resp B/P (MAP) Pulse Ox O2 Delivery O2 Flow Rate FiO2 03/21/19 04:00 98.6 76 21 127/58 (81) 95 03/21/19 00:00 97.8 77 20 115/67 (83) 95 03/20/19 21:00 Nasal Cannula 3.0 03/20/19 20:45 75 123/66 03/20/19 20:14 97 Nasal Cannula 2.0 28 03/20/19 20:00 98.6 75 22 123/66 (85) 95 03/20/19 16:00 97.9 68 18 134/63 (86) 99 03/20/19 12:00 97.8 62 18 108/53 (71) 96 03/20/19 09:00 Nasal Cannula 3.0 03/20/19 08:46 130/80 03/20/19 08:46 80 130/80 03/20/19 08:00 97.7 79 19 126/68 (87) 94 Intake and Output 03/20/19 03/21/19 19:00 07:00 Intake Total 1077.506 ml 860 ml Output Total 1000 ml 600 ml Balance 77.506 ml 260 ml Intake Oral 860 ml 860 ml IV Total 217.506 ml Output Urine Total 1000 ml 600 ml # Voids 2 # Bowel Movements 1 Laboratory Tests 03/20/19 07:45: Activated Partial Thromboplast Time 63H 03/20/19 15:18: Activated Partial Thromboplast Time 116H 03/21/19 05:10: White Blood Count [Pending], Red Blood Count [Pending], Hemoglobin [Pending], Hematocrit [Pending], Mean Corpuscular Volume [Pending], Mean Corpuscular Hemoglobin [Pending], Mean Corpuscular Hemoglobin Concent [Pending], Red Cell Distribution Width [Pending], Platelet Count [Pending], Mean Platelet Volume [ Pending], Neutrophils (%) (Auto) [Pending], Lymphocytes (%) (Auto) [Pending], Monocytes (%) (Auto) [Pending], Eosinophils (%) (Auto) [Pending], Basophils (%) (Auto) [Pending], Sodium Level 139, Potassium Level 4.0, Chloride Level 107, Carbon Dioxide Level 28, Anion Gap 4L, Blood Urea Nitrogen 12, Creatinine 1.2, Estimat Glomerular Filtration Rate , Glucose Level 108H, Hemoglobin A1c 6.4H, Calcium Level 8.7 Height (Feet): 5 Height (Inches): 8.00 Weight (Pounds): 164 General Appearance: no apparent distress Neck: normal alignment Cardiovascular: regular rhythm Respiratory/Chest: decreased breath sounds Abdomen: normal bowel sounds Objective Current Medications Medications (Trade) Dose Ordered Sig/Raymond Route PRN Reason Start Time Stop Time Status Last Admin Dose Admin Acetaminophen (Tylenol) 650 mg Q4H PRN ORAL fever 03/17/19 16:00 04/09/19 15:59 Apixaban (Eliquis) 5 mg BID ORAL 03/28/19 09:00 04/27/19 08:59 Apixaban (Eliquis) 10 mg BID ORAL 03/20/19 18:00 03/27/19 23:59 03/20/19 18:06 Aspirin (ASA) 81 mg DAILY ORAL 03/18/19 09:00 04/10/19 08:59 03/20/19 08:46 Carvedilol (Coreg) 3.125 mg EVERY 12 HOURS ORAL 03/17/19 21:00 04/11/19 20:59 03/20/19 20:45 Clonidine HCl (Catapres Tab) 0.1 mg Q4H PRN ORAL sbp more than 160 03/17/19 17:00 04/16/19 16:59 Dextrose (Dextrose 50%) 25 ml Q30M PRN IV Hypoglycemia 03/17/19 15:30 04/09/19 22:29 Dextrose (Dextrose 50%) 50 ml Q30M PRN IV Hypoglycemia 03/17/19 15:30 04/09/19 22:29 Furosemide (Lasix) 20 mg DAILY IV 03/18/19 09:00 04/16/19 08:59 03/20/19 08:47 Insulin Aspart (NovoLOG) BEFORE MEALS AND HS SUBQ 03/17/19 16:30 04/10/19 20:59 03/20/19 20:48 Lisinopril (ZestriL) 10 mg DAILY ORAL 03/18/19 09:00 04/11/19 10:29 03/20/19 08:46 Nitroglycerin (Ntg) 0.4 mg Q5M X 3 DOSES PRN SL Prn Chest Pain 03/17/19 15:15 04/09/19 22:29 Ondansetron HCl (Zofran) 4 mg Q6H PRN IVP Nausea & Vomiting 03/17/19 16:30 04/09/19 22:29 Polyethylene Glycol (Miralax) 17 gm HSPRN PRN ORAL Constipation 03/17/19 16:00 04/09/19 15:59 03/18/19 12:34 Promethazine HCl/ Codeine (Phenergan with Codeine) 5 ml Q6H PRN ORAL For Cough 03/18/19 08:15 04/17/19 08:14 03/18/19 12:34 Quetiapine Fumarate (SEROqueL) 25 mg Q12HR ORAL 03/17/19 21:00 04/11/19 08:59 03/20/19 20:45 Ralf Rousseau MD Mar 21, 2019 07:06
--- NOTE | 2019-03-21 07:30 | NUR ---
HAND-OFF: Report given to Ms. Bailey RN.
--- NOTE | 2019-03-21 07:35 | NUR ---
NURSE NOTES: Nurse report given by JULIÁN Deleon. Patient's awake and sitting in bed, family member presents at bedside. Denies pain, no s/s of distress or SOB, AO x 2, urdu speaking only. Bed low and locked, call light within reach, side rails x 3, bed alarm is armed. IV is saline locked, patent and asymptomatic. David is intact and drained well. Will continue to monitor.
[2019-03-21] MEDS: Aspirin Baby 81mg ORAL SCH (09:00)
[2019-03-21] MEDS: Lisinopril 10mg tab ORAL SCH (09:00)
[2019-03-21] MEDS: Eliquis 5mg tablet ORAL SCH ×2 (09:01→17:42)
--- NOTE | 2019-03-21 13:30 | Internal Med Progress Note ---
Subjective Date of Service: Mar 21, 2019 Physician Name HaydeCrescencio Attending Physician Codey Winters MD Current Medications Medications (Trade) Dose Ordered Sig/Raymond Route PRN Reason Start Time Stop Time Status Last Admin Dose Admin Acetaminophen (Tylenol) 650 mg Q4H PRN ORAL fever 03/17/19 16:00 04/09/19 15:59 Apixaban (Eliquis) 5 mg BID ORAL 03/28/19 09:00 04/27/19 08:59 Apixaban (Eliquis) 10 mg BID ORAL 03/20/19 18:00 03/27/19 23:59 03/21/19 09:01 Aspirin (ASA) 81 mg DAILY ORAL 03/18/19 09:00 04/10/19 08:59 03/21/19 09:00 Carvedilol (Coreg) 3.125 mg EVERY 12 HOURS ORAL 03/17/19 21:00 04/11/19 20:59 03/21/19 09:00 Clonidine HCl (Catapres Tab) 0.1 mg Q4H PRN ORAL sbp more than 160 03/17/19 17:00 04/16/19 16:59 Dextrose (Dextrose 50%) 25 ml Q30M PRN IV Hypoglycemia 03/17/19 15:30 04/09/19 22:29 Dextrose (Dextrose 50%) 50 ml Q30M PRN IV Hypoglycemia 03/17/19 15:30 04/09/19 22:29 Furosemide (Lasix) 20 mg DAILY IV 03/18/19 09:00 04/16/19 08:59 03/21/19 09:00 Insulin Aspart (NovoLOG) BEFORE MEALS AND HS SUBQ 03/17/19 16:30 04/10/19 20:59 03/21/19 11:26 Lisinopril (ZestriL) 10 mg DAILY ORAL 03/18/19 09:00 04/11/19 10:29 03/21/19 09:00 Nitroglycerin (Ntg) 0.4 mg Q5M X 3 DOSES PRN SL Prn Chest Pain 03/17/19 15:15 04/09/19 22:29 Ondansetron HCl (Zofran) 4 mg Q6H PRN IVP Nausea & Vomiting 03/17/19 16:30 04/09/19 22:29 Polyethylene Glycol (Miralax) 17 gm HSPRN PRN ORAL Constipation 03/17/19 16:00 04/09/19 15:59 03/18/19 12:34 Promethazine HCl/ Codeine (Phenergan with Codeine) 5 ml Q6H PRN ORAL For Cough 03/18/19 08:15 04/17/19 08:14 03/18/19 12:34 Quetiapine Fumarate (SEROqueL) 25 mg Q12HR ORAL 03/17/19 21:00 04/11/19 08:59 03/21/19 09:00 Allergies: Coded Allergies: No Known Allergies (Unverified , 03/10/19) ROS Limited/Unobtainable: Yes Subjective 78 YO M admitted with altered mental status. Cover for Int Med-Dr Winters. Objective Last Vital Signs Date Time Temp Pulse Resp B/P (MAP) Pulse Ox O2 Delivery O2 Flow Rate FiO2 03/21/19 12:00 97.5 62 19 103/49 (67) 96 03/21/19 09:00 Nasal Cannula 3.0 03/20/19 20:14 28 Laboratory Tests Test 03/20/19 15:18 03/21/19 05:10 Activated Partial Thromboplast Time 116 SEC (23-33) H White Blood Count 6.4 K/UL (4.8-10.8) Red Blood Count 4.66 M/UL (4.70-6.10) L Hemoglobin 11.8 G/DL (14.2-18.0) L Hematocrit 38.0 % (42.0-52.0) L Mean Corpuscular Volume 82 FL (80-99) Mean Corpuscular Hemoglobin 25.3 PG (27.0-31.0) L Mean Corpuscular Hemoglobin Concent 31.0 G/DL (32.0-36.0) L Red Cell Distribution Width 15.3 % (11.6-14.8) H Platelet Count 221 K/UL (150-450) Mean Platelet Volume 8.0 FL (6.5-10.1) Neutrophils (%) (Auto) 57.9 % (45.0-75.0) Lymphocytes (%) (Auto) 27.4 % (20.0-45.0) Monocytes (%) (Auto) 10.4 % (1.0-10.0) H Eosinophils (%) (Auto) 2.9 % (0.0-3.0) Basophils (%) (Auto) 1.4 % (0.0-2.0) Sodium Level 139 MMOL/L (136-145) Potassium Level 4.0 MMOL/L (3.5-5.1) Chloride Level 107 MMOL/L (98-107) Carbon Dioxide Level 28 MMOL/L (21-32) Anion Gap 4 mmol/L (5-15) L Blood Urea Nitrogen 12 mg/dL (7-18) Creatinine 1.2 MG/DL (0.55-1.30) Estimat Glomerular Filtration Rate mL/min (>60) Glucose Level 108 MG/DL (74-106) H Hemoglobin A1c 6.4 % (4.3-6.0) H Calcium Level 8.7 MG/DL (8.5-10.1) Intake and Output 03/20/19 03/21/19 19:00 07:00 Intake Total 1077.506 ml 860 ml Output Total 1000 ml 600 ml Balance 77.506 ml 260 ml Intake Oral 860 ml 860 ml IV Total 217.506 ml Output Urine Total 1000 ml 600 ml # Voids 2 # Bowel Movements 1 Objective PHYSICAL EXAMINATION: GENERAL: The patient is awake, responsive, and sluggish. HEAD AND NECK: Pupils are reactive to light. Anicteric. NECK: Supple. No jugular venous distention. LUNGS: Good air entry. No wheeze or rales. Decreased air in the bases. HEART: S1, S2. Distant heart sounds. No murmur or gallops. ABDOMEN: Soft, nondistended, and nontender. Mildly obese. EXTREMITIES: No cyanosis or clubbing. Hyperpigmentation on the right lower extremity was noted and trace ankle edema. NEUROLOGIC: Cranial nerves II through XII are grossly intact. The patient is moving all the extremities spontaneously. Gait was not assessed due to the patient's status. RECTAL/GENITOURINARY: Refused and deferred. PSYCHIATRIC: Mood and affect is intact. Assessment/Plan Assessment/Plan ASSESSMENT: 1. Altered mental status, most likely secondary to toxic metabolic encephalopathy. 2. Diabetes type 2. 3. Congestive heart failure. 4. Hypertension. 5. Sick sinus syndrome status post pacemaker. 6. Obesity. 7. Discharge planning PLAN: 1. Med/Surg 2 Endocrinology=[facility] 3. Monitor blood glucose level closely. Novolog sliding scale 4. Resume home medication. 5. Duplex of lower extremity. 6. Discussed the case with Dr. Jeffries, Pulmonary Critical Care, as well as Cardiology consultation. 7. Code status, Full Code. 8. Discharge plan: [facility] Crescencio Lock MD Mar 21, 2019 13:30
--- NOTE | 2019-03-21 17:02 | NUR ---
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 97.5 HR 63 RR 19 B/P 127/49 2L NC IS; ELIQUISE PO LASIX IV SEROQUEL PO ASA PO MED/SURG STATUS
--- NOTE | 2019-03-21 19:17 | NUR ---
HAND-OFF: Report given to JULIÁN Mckee. Patient's stable. Plan of care endorsed.
--- NOTE | 2019-03-21 19:20 | NUR ---
NURSE NOTES: Received report from JULIÁN Rogel. Patient is awake and sitting up in bed, is at bedside. Denies pain, no s/s of distress nor SOB, AO x 2, Danish speaking only. Bed is in low and locked position, side rails x 3, bed alarm on, call light within reach. IV is saline locked, patent and asymptomatic. David is intact, anchored and draining to gravity. Will continue to monitor.
[2019-03-21] MEDS: Miralax 17gm pkt ORAL PRN (20:46)
[2019-03-22 00:10] VITALS: BP 116/50
[2019-03-22 04:00] VITALS: BP 133/59
[2019-03-22 06:15] LABS: BASOPHILS % (AUTO) 1.1 % (0.0-2.0); EOSINOPHILS % (AUTO) 3.1 % (0.0-3.0); HEMATOCRIT 35.3 % (42.0-52.0); HEMOGLOBIN 11.2 G/DL (14.2-18.0); LYMPHOCYTES % (AUTO) 25.6 % (20.0-45.0); MEAN CORPUSCULAR VOLUME 81 FL (80-99); MONOCYTES % (AUTO) 11.3 % (1.0-10.0); NEUTROPHILS % (AUTO) 58.9 % (45.0-75.0); PLATELET COUNT 197 K/UL (150-450); RED BLOOD COUNT 4.35 M/UL (4.70-6.10); RED CELL DISTRIBUTION WIDTH 15.4 % (11.6-14.8); WHITE BLOOD COUNT 6.2 K/UL (4.8-10.8)
[2019-03-22] MEDS: NovoLOG Insulin Flexpen SUBQ SCH ×3 (06:27→16:30)
[2019-03-22 06:29] LABS: ANION GAP 6 mmol/L (5-15); BLOOD UREA NITROGEN 12 mg/dL (7-18); CALCIUM 8.6 MG/DL (8.5-10.1); CARBON DIOXIDE 27 MMOL/L (21-32); CHLORIDE 107 MMOL/L (98-107); CREATININE 1.2 MG/DL (0.55-1.30); POTASSIUM 4.4 MMOL/L (3.5-5.1); SODIUM 140 MMOL/L (136-145)
--- NOTE | 2019-03-22 06:43 | NUR ---
NURSE NOTES: I noticed a small amount of hematuria. It was slightly pink earlier but is darker red, flushing tafoya and reanchored. He pulled at the tafoya slightly earlier and had been on a heparin drip previously. Now he is on eliquis for dvt prevention .
--- NOTE | 2019-03-22 06:47 | General Progress Note ---
Assessment/Plan Problem List: (1) Diabetes mellitus ICD Codes: E11.9 - Type 2 diabetes mellitus without complications SNOMED: 72846174 (2) Hypoglycemia ICD Codes: E16.2 - Hypoglycemia, unspecified SNOMED: 350194411 (3) Acute CHF ICD Codes: I50.9 - Heart failure, unspecified SNOMED: 84751354, 147684320, 449066086 (4) Acute metabolic encephalopathy ICD Codes: G93.41 - Metabolic encephalopathy SNOMED: 67802402, 691683962 (5) Cardiac LV ejection fraction 30-35% ICD Codes: R94.30 - Abnormal result of cardiovascular function study, unspecified SNOMED: 04435820, 575229237 (6) Pacemaker ICD Codes: Z95.0 - Presence of cardiac pacemaker SNOMED: 846702893 Status: stable, progressing Assessment/Plan: no need for basal insulin Novolog sliding scale ac / hs hypoglycemia protocol in order Subjective ROS Limited/Unobtainable: Yes Allergies: Coded Allergies: No Known Allergies (Unverified , 03/10/19) Subjective events noted fair glycemic control Item Value Date Time Bedside Blood Glucose 111 mg/dl 03/22/19 0630 Bedside Blood Glucose 160 mg/dl H 03/21/19 2100 Bedside Blood Glucose 153 mg/dl H 03/21/19 1637 Bedside Blood Glucose 179 mg/dl H 03/21/19 1130 Bedside Blood Glucose 112 mg/dl 03/21/19 0608 Objective Last 24 Hour Vital Signs Date Time Temp Pulse Resp B/P (MAP) Pulse Ox O2 Delivery O2 Flow Rate FiO2 03/22/19 04:00 98.8 69 18 133/59 (83) 100 03/22/19 00:10 98.3 71 18 116/50 (72) 98 03/21/19 21:14 Nasal Cannula 3.0 03/21/19 20:45 70 120/50 03/21/19 20:05 97.8 70 17 119/50 (73) 97 03/21/19 16:00 97.5 62 19 127/49 (75) 97 03/21/19 13:42 97 Nasal Cannula 2.0 28 03/21/19 12:00 97.5 62 19 103/49 (67) 96 03/21/19 09:00 120/57 03/21/19 09:00 67 120/56 03/21/19 09:00 Nasal Cannula 3.0 03/21/19 08:00 98.4 67 17 120/57 (78) 95 Intake and Output 03/21/19 03/22/19 19:00 07:00 Intake Total 650 ml Output Total 570 ml 500 ml Balance 80 ml -500 ml Intake Oral 650 ml Output Urine Total 570 ml 500 ml Laboratory Tests 03/22/19 05:40: White Blood Count 6.2, Red Blood Count 4.35L, Hemoglobin 11.2L, Hematocrit 35.3L , Mean Corpuscular Volume 81, Mean Corpuscular Hemoglobin 25.7L, Mean Corpuscular Hemoglobin Concent 31.6L, Red Cell Distribution Width 15.4H, Platelet Count 197, Mean Platelet Volume 7.4, Neutrophils (%) (Auto) 58.9, Lymphocytes (%) (Auto) 25.6, Monocytes (%) (Auto) 11.3H, Eosinophils (%) (Auto) 3.1H, Basophils (%) (Auto) 1.1, Sodium Level 140, Potassium Level 4.4, Chloride Level 107, Carbon Dioxide Level 27, Anion Gap 6, Blood Urea Nitrogen 12, Creatinine 1.2, Estimat Glomerular Filtration Rate , Glucose Level 117H, Calcium Level 8.6 Height (Feet): 5 Height (Inches): 8.00 Weight (Pounds): 165 General Appearance: no apparent distress Cardiovascular: normal rate Respiratory/Chest: decreased breath sounds Abdomen: normal bowel sounds Objective Current Medications Medications (Trade) Dose Ordered Sig/Raymond Route PRN Reason Start Time Stop Time Status Last Admin Dose Admin Acetaminophen (Tylenol) 650 mg Q4H PRN ORAL fever 03/17/19 16:00 04/09/19 15:59 Apixaban (Eliquis) 5 mg BID ORAL 03/28/19 09:00 04/27/19 08:59 Apixaban (Eliquis) 10 mg BID ORAL 03/20/19 18:00 03/27/19 23:59 03/21/19 17:42 Aspirin (ASA) 81 mg DAILY ORAL 03/18/19 09:00 04/10/19 08:59 03/21/19 09:00 Carvedilol (Coreg) 3.125 mg EVERY 12 HOURS ORAL 03/17/19 21:00 04/11/19 20:59 03/21/19 20:45 Clonidine HCl (Catapres Tab) 0.1 mg Q4H PRN ORAL sbp more than 160 03/17/19 17:00 04/16/19 16:59 Dextrose (Dextrose 50%) 25 ml Q30M PRN IV Hypoglycemia 03/17/19 15:30 04/09/19 22:29 Dextrose (Dextrose 50%) 50 ml Q30M PRN IV Hypoglycemia 03/17/19 15:30 04/09/19 22:29 Furosemide (Lasix) 20 mg DAILY IV 03/18/19 09:00 04/16/19 08:59 03/21/19 09:00 Insulin Aspart (NovoLOG) BEFORE MEALS AND HS SUBQ 03/17/19 16:30 04/10/19 20:59 03/22/19 06:27 Lisinopril (ZestriL) 10 mg DAILY ORAL 03/18/19 09:00 04/11/19 10:29 03/21/19 09:00 Nitroglycerin (Ntg) 0.4 mg Q5M X 3 DOSES PRN SL Prn Chest Pain 03/17/19 15:15 04/09/19 22:29 Ondansetron HCl (Zofran) 4 mg Q6H PRN IVP Nausea & Vomiting 03/17/19 16:30 04/09/19 22:29 Polyethylene Glycol (Miralax) 17 gm HSPRN PRN ORAL Constipation 03/17/19 16:00 04/09/19 15:59 03/21/19 20:46 Promethazine HCl/ Codeine (Phenergan with Codeine) 5 ml Q6H PRN ORAL For Cough 03/18/19 08:15 04/17/19 08:14 03/18/19 12:34 Quetiapine Fumarate (SEROqueL) 25 mg Q12HR ORAL 03/17/19 21:00 04/11/19 08:59 03/21/19 20:45 Ralf Rousseau MD Mar 22, 2019 06:47
--- NOTE | 2019-03-22 07:38 | NUR ---
HAND-OFF: Report given to JULIÁN Boswell.
--- NOTE | 2019-03-22 07:40 | NUR ---
NURSE NOTES: Received pt in bed, AAO x 2. East Timorese speaking. On NC 2L/min. No c/o of pain/distress. IV on L foot 22g and R arm 22g noted. David intact, draining by gravity. at the bedside Side rails x 3. Bed in the lowest, locked, and alarm on. Call light within reach. Will continue to monitor
[2019-03-22 08:00] VITALS: BP 117/67
[2019-03-22] MEDS: Lisinopril 10mg tab ORAL SCH (09:00)
[2019-03-22] MEDS: Aspirin Baby 81mg ORAL SCH (09:20)
[2019-03-22] MEDS: Eliquis 5mg tablet ORAL SCH (09:20)
--- NOTE | 2019-03-22 11:41 | NUR ---
WEEKLY SWALLOW/SPEECH THERAPY NOTE: S: ALERT AND ABLE TO EXPRESS BASIC NEEDS IN [place]AM[place] WITH GUAMANIAN-SPEAKING RESEARCH ENGINEER. PATIENT SAID THAT HE IS FROM [place]. HIS SISTER IS PRESENT AND SHE ASSISTS WITH HIS MEALS. O/A: RE-EVALUATE SWALLOW AND UPGRADE IF NEEDED GOALS MET FOR 100% INTAKE ON LIQUIFIED PUREED LIKE NECTAR THICK SOUP DIET AND NECTAR THICK LIQUIDS ON ORDER. PATIENT TAKES 45 MIN TO FINISH A MEAL PER HIS SISTER. GIVEN PUREED TSP PO TRIAL AND SWALLOWED W/IN 2-3 SECONDS, 1-2 SWALLOW, MIN TO NO ORAL RESIDUE, WITH FAIR HYOLARYNGEAL EXCURSION, NO OVERT ASPIRATION, NO SOB AT 20. GIVEN SEQUENTIAL SIPS OF NECTAR THICK WATER VIA STRAW, ALSO HAS INCREASED RR TO 24. PATIENT NOT SOB WITH ONE SIP OF NECTAR THICK LIQUIDS VIA STRAW OR SIP VIA CUP. GIVEN 1/2 CRACKER, TAKES A LONG TIME 15 SECONDS TO CHEW (MISSING MOST MOLARS NO LOWER TEETH) AND GETS SOB TO 24 BPM AND CLEARS BOLUS WITH NECTAR THICK LIQUID WASH. 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 03/13/19 CXR NOTED HAZY OPACITIES THROUGHOUT LUNGS POSSIBLE PULMONARY EDEMA. 03/15/19 CXR SHOWED IMPROVED SLIGHTLY RIGHT PLEURAL EFFUSION. UNABLE TO COMPLETE MODIFIED BARIUM SWALLOW STUDY (PLACED CLARIFICATION ORDER TODAY FOR DR VILLALBA). PER RD, PATIENT SHOULD BE ON CCHO-MED AND LOW NA DIET TYPE ADD GLUCERNA TID. 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 PLAN: UPGRADE TO CCHO-MED LOW NA PUREED AND NECTAR THICK LIQUIDS WITH POSTED ASPIRATION PRECAUTIONS. CONTINUE WITH SKILLED DYSPHAGIA MANAGEMENT AND TX (AND GOALS NOTED IN SWALLOW EVAL) COMPLETE MODIFIED BARIUM SWALLOW STUDY IP OR OP IF DC D/W JULIÁN DARLING AND FEEDERS PATIENT'S SISTER AND LAURA SANCHEZ
[2019-03-22 12:00] VITALS: BP 113/71
--- NOTE | 2019-03-22 12:00 | Cardiology Progress Note ---
Assessment/Plan Assessment/Plan 1. Hypoglycemia. 2. Diabetes mellitus. 3. Medication noncompliance. 4. Reported history of sick sinus syndrome, status post pacemaker implantation. 5. Reported history of congestive heart failure. 6. Cardiomyopathy. 7. Mitral regurgitation. 8. Abnormal cardiac enzymes 9. axilalry vein dvt bp lower decrease diuretics trop without a peak or susana look better ekg noted await icd interrogation increae the coreg Subjective Cardiovascular: Denies: chest pain, lightheadedness Respiratory: Denies: shortness of breath Gastrointestinal/Abdominal: Denies: abdominal pain Objective Last 24 Hour Vital Signs Date Time Temp Pulse Resp B/P (MAP) Pulse Ox O2 Delivery O2 Flow Rate FiO2 03/22/19 09:00 Nasal Cannula 3.0 03/22/19 09:00 117/67 03/22/19 09:00 69 117/67 03/22/19 08:00 97.6 69 20 117/67 (84) 95 03/22/19 07:52 95 Nasal Cannula 2.0 28 03/22/19 04:00 98.8 69 18 133/59 (83) 100 03/22/19 00:10 98.3 71 18 116/50 (72) 98 03/21/19 21:14 Nasal Cannula 3.0 03/21/19 20:45 70 120/50 03/21/19 20:05 97.8 70 17 119/50 (73) 97 03/21/19 16:00 97.5 62 19 127/49 (75) 97 03/21/19 13:42 97 Nasal Cannula 2.0 28 03/21/19 12:00 97.5 62 19 103/49 (67) 96 General Appearance: no apparent distress, alert Neck: supple Cardiovascular: normal rate Respiratory/Chest: lungs clear Abdomen: non tender, soft Extremities: no swelling Intake and Output 03/21/19 03/22/19 19:00 07:00 Intake Total 650 ml Output Total 570 ml 500 ml Balance 80 ml -500 ml Intake Oral 650 ml Output Urine Total 570 ml 500 ml Laboratory Tests Test 03/22/19 05:40 White Blood Count 6.2 K/UL (4.8-10.8) Red Blood Count 4.35 M/UL (4.70-6.10) L Hemoglobin 11.2 G/DL (14.2-18.0) L Hematocrit 35.3 % (42.0-52.0) L Mean Corpuscular Volume 81 FL (80-99) Mean Corpuscular Hemoglobin 25.7 PG (27.0-31.0) L Mean Corpuscular Hemoglobin Concent 31.6 G/DL (32.0-36.0) L Red Cell Distribution Width 15.4 % (11.6-14.8) H Platelet Count 197 K/UL (150-450) Mean Platelet Volume 7.4 FL (6.5-10.1) Neutrophils (%) (Auto) 58.9 % (45.0-75.0) Lymphocytes (%) (Auto) 25.6 % (20.0-45.0) Monocytes (%) (Auto) 11.3 % (1.0-10.0) H Eosinophils (%) (Auto) 3.1 % (0.0-3.0) H Basophils (%) (Auto) 1.1 % (0.0-2.0) Sodium Level 140 MMOL/L (136-145) Potassium Level 4.4 MMOL/L (3.5-5.1) Chloride Level 107 MMOL/L (98-107) Carbon Dioxide Level 27 MMOL/L (21-32) Anion Gap 6 mmol/L (5-15) Blood Urea Nitrogen 12 mg/dL (7-18) Creatinine 1.2 MG/DL (0.55-1.30) Estimat Glomerular Filtration Rate mL/min (>60) Glucose Level 117 MG/DL (74-106) H Calcium Level 8.6 MG/DL (8.5-10.1) Rhett Kennedy MD Mar 22, 2019 12:00
--- NOTE | 2019-03-22 13:35 | NUR ---
RD ASSESSMENT & RECOMMENDATIONS SEE CARE ACTIVITY FOR COMPLETE ASSESSMENT DAILY ESTIMATED NEEDS: Needs based on DM, CHF/ 72kg abw 25-30 kcals/kg 9320-7533 total kcals 1-1.5 g protein/kg 72-108 g total protein 20-22 mL/kg 9176-8754 total fluid mLs NUTRITION DIAGNOSIS: Altered nutrition related lab values R/T DM, CHF as evidenced by admitted w/ hypoglycemia w/ BG value of 26, now improved w/ POC (88 139 124 124 114), A1C 6.4, elev BNP (7204-> 5991), on diuretics. CURRENT DIET:CCHO MED, CARDIAC, pureed, NTL PO DIET RECOMMENDATIONS: CCHO MED, LOW NA/ texture per ELECTRICAL AND RADIO MECHANIC ADDITIONAL RECOMMENDATIONS: * Calibrated bedscale wt for accurate CBW -> daily wt monitoring given CHF dx, on diuretics * Monitor for hypoglycemia- no events noted * Add Glucerna TID in b/w meals (approximately 1.7 carb serving each) * Monitor PO intake closely: poor/variable upon adm, now improved * Monitor lytes closely w/ lasix, replete as needed- lytes wnl -> Encourage HS snack to prevent morning hypoglycemia
--- NOTE | 2019-03-22 14:12 | NUR ---
CHORE TENDERTHREAD SEPARATOR SI; PERSISTENT HYPOGLYCEMIA, ENCEPHALOPATHY T. 97.4 HR 66 RR 18 B/P 113/71 3L NC IS: LASIX IV SEROQUEL PO ELIQUISE PO ZESTRIL PO PLACEMENT PENDING MED/SURG STATUS
--- NOTE | 2019-03-22 14:14 | NUR ---
MIX HOUSE OPERATOR NOTES SPOKE WITH JOSUÉ FROM [employer]ANCE D[employer]GO[employer], INQUIRES FAXED TO CONTRACTED FACILITIES.WAITING FOR ACCEPTING FACILITY.
[2019-03-22] MEDS ORDERED: SEROQUEL25 MG ORAL (15:25)
[2019-03-22] MEDS ORDERED: ZESTRIL10 M1 ORAL (15:25)
[2019-03-22] MEDS ORDERED: ASPIRIN81 MG ORAL (15:25)
[2019-03-22] MEDS ORDERED: FUROSEMIDE40 MG ORAL (15:25)
[2019-03-22] MEDS ORDERED: ELIQUIS5 MG ORAL (15:25)
[2019-03-22] MEDS ORDERED: COREG6.25 MG ORAL (15:25)
--- NOTE | 2019-03-22 15:26 | Internal Med Progress Note ---
Subjective Physician Name Codey Winters Attending Physician Codey Winters MD Current Medications Medications (Trade) Dose Ordered Sig/Raymond Route PRN Reason Start Time Stop Time Status Last Admin Dose Admin Acetaminophen (Tylenol) 650 mg Q4H PRN ORAL fever 03/17/19 16:00 04/09/19 15:59 Apixaban (Eliquis) 5 mg BID ORAL 03/28/19 09:00 04/27/19 08:59 Apixaban (Eliquis) 10 mg BID ORAL 03/20/19 18:00 03/27/19 23:59 03/22/19 09:20 Aspirin (ASA) 81 mg DAILY ORAL 03/18/19 09:00 04/10/19 08:59 03/22/19 09:20 Carvedilol (Coreg) 6.25 mg EVERY 12 HOURS ORAL 03/22/19 21:00 04/21/19 20:59 Clonidine HCl (Catapres Tab) 0.1 mg Q4H PRN ORAL sbp more than 160 03/17/19 17:00 04/16/19 16:59 Dextrose (Dextrose 50%) 25 ml Q30M PRN IV Hypoglycemia 03/17/19 15:30 04/09/19 22:29 Dextrose (Dextrose 50%) 50 ml Q30M PRN IV Hypoglycemia 03/17/19 15:30 04/09/19 22:29 Furosemide (Lasix) 20 mg DAILY IV 03/18/19 09:00 04/16/19 08:59 03/22/19 09:21 Insulin Aspart (NovoLOG) BEFORE MEALS AND HS SUBQ 03/17/19 16:30 04/10/19 20:59 03/22/19 11:44 Lisinopril (ZestriL) 10 mg DAILY ORAL 03/18/19 09:00 04/11/19 10:29 03/21/19 09:00 Nitroglycerin (Ntg) 0.4 mg Q5M X 3 DOSES PRN SL Prn Chest Pain 03/17/19 15:15 04/09/19 22:29 Ondansetron HCl (Zofran) 4 mg Q6H PRN IVP Nausea & Vomiting 03/17/19 16:30 04/09/19 22:29 Polyethylene Glycol (Miralax) 17 gm HSPRN PRN ORAL Constipation 03/17/19 16:00 04/09/19 15:59 03/21/19 20:46 Promethazine HCl/ Codeine (Phenergan with Codeine) 5 ml Q6H PRN ORAL For Cough 03/18/19 08:15 04/17/19 08:14 03/18/19 12:34 Quetiapine Fumarate (SEROqueL) 25 mg Q12HR ORAL 03/17/19 21:00 04/11/19 08:59 03/22/19 09:21 Allergies: Coded Allergies: No Known Allergies (Unverified , 03/10/19) Subjective Awake, alert, responsive, denies any chest pain or shortness of breath, denies any nausea or vomiting, family member at bedside. Objective Last Vital Signs Date Time Temp Pulse Resp B/P (MAP) Pulse Ox O2 Delivery O2 Flow Rate FiO2 03/22/19 12:00 97.4 66 18 113/71 (85) 98 03/22/19 09:00 Nasal Cannula 3.0 03/22/19 07:52 28 Laboratory Tests Test 03/22/19 05:40 White Blood Count 6.2 K/UL (4.8-10.8) Red Blood Count 4.35 M/UL (4.70-6.10) L Hemoglobin 11.2 G/DL (14.2-18.0) L Hematocrit 35.3 % (42.0-52.0) L Mean Corpuscular Volume 81 FL (80-99) Mean Corpuscular Hemoglobin 25.7 PG (27.0-31.0) L Mean Corpuscular Hemoglobin Concent 31.6 G/DL (32.0-36.0) L Red Cell Distribution Width 15.4 % (11.6-14.8) H Platelet Count 197 K/UL (150-450) Mean Platelet Volume 7.4 FL (6.5-10.1) Neutrophils (%) (Auto) 58.9 % (45.0-75.0) Lymphocytes (%) (Auto) 25.6 % (20.0-45.0) Monocytes (%) (Auto) 11.3 % (1.0-10.0) H Eosinophils (%) (Auto) 3.1 % (0.0-3.0) H Basophils (%) (Auto) 1.1 % (0.0-2.0) Sodium Level 140 MMOL/L (136-145) Potassium Level 4.4 MMOL/L (3.5-5.1) Chloride Level 107 MMOL/L (98-107) Carbon Dioxide Level 27 MMOL/L (21-32) Anion Gap 6 mmol/L (5-15) Blood Urea Nitrogen 12 mg/dL (7-18) Creatinine 1.2 MG/DL (0.55-1.30) Estimat Glomerular Filtration Rate mL/min (>60) Glucose Level 117 MG/DL (74-106) H Calcium Level 8.6 MG/DL (8.5-10.1) Intake and Output 03/21/19 03/22/19 19:00 07:00 Intake Total 650 ml Output Total 570 ml 500 ml Balance 80 ml -500 ml Intake Oral 650 ml Output Urine Total 570 ml 500 ml Objective General: No acute distress, awake and alert HEENT: NCAT, sclera anicteric, PERRL, EOMI. Neck: Supple, no significant jugular venous distention, Lungs: Good inspiratory effort, no accessory muscle use, clear to auscultation bilaterally, no Wheeze or Rales. Heart: Regular rate and rhythm, normal S1/S2, no murmurs/gallops Abdomen: soft, nontender, nondistended. Normoactive bowel sounds. : David Cath. Extremities: No Cyanosis , clubbing or edema. Right lower extremity hyperpigmentation and muscle atrophy noted. 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 DM T2 MR Noncompliance with medication PLAN OF CARE MS floor Venous duplex + acute DVT L axillary vein on heparin gtt troponin elevated ; no peak , no susana ECHO with rEF 30 to 35%, MR diuresis, with close monitoring of volumes and cardiorenal parameters proBNP trending down guideline directed medical therapy of CHF with BB and PRESTON as per cardio DVT prophylaxis Hgb A1c 6.4, no need for basal insulin as per compressed yeast supervisor SSI AC + HS prn hypoglycemia protocol CT head -no acute IC pathology, 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
[2019-03-22 16:00] VITALS: BP 132/83
--- NOTE | 2019-03-22 18:42 | NUR ---
NURSE NOTES: Patient is discharged to home via private vehicle accompanied by family members. Escorted pt to first floor. ID and IV was removed. No infection on the removal site. Belongings were accounted and given to family. Discharge instruction was given. Prescribed medications were given with instructions on how to take it by using otc clerk via [employer] (block breaker operator phone). Home health will be set up by complex case manager and complex case manager is aware.
[2019-03-22] MEDS ORDERED: Carvedilol 6.25mg Tab ORAL SCH (21:00)
--- NOTE | 2019-03-23 09:32 | Discharge Summary ---
Discharge Summary Discharge Summary _ DATE OF ADMISSION: 03/10/2019 DATE OF DISCHARGE: 03/22/2019 DISCHARGED BY: Dr. Winters REASON FOR ADMISSION: 78 years old male with past medical history significant for hypertension, diabetes mellitus type 2, insulin-dependent, sick sinus syndrome, status post pacemaker placement , congestive heart failure, was brought to emergency department by coal pulverizing operator with altered mental status. Patient apparently was not taking his medications for few days. Patient was not eating well. Blood sugar in the field was found to be 26. Patient subsequently received intravenous dextrose . Mental status improved. Patient was brought for evaluation in emergency department . Patient was short of breath . Troponin was mildly elevated. Patient subsequently admitted to direct observational unit for altered mental status , likely secondary to toxic metabolic encephalopathy as result of the hypoglycemia as well as the shortness of breath and mild elevation in troponin. CONSULTANTS: practice assistant Dr. Kennedy pulmonary/critical care Dr. Jeffries archivist Dr. Rousseau [facility] COURSE: Patient initially admitted to [facility]. Patient started on IV fluids with D10. Blood sugar was closely monitored. Cognos Lead followed. Home medication resumed. Echocardiogram revealed global left ventricular hypokinesis with akinesis of posterior and lateral armenta. Left ventricular ejection fraction 30 to 35%. Mild left ventricular hypertrophy. Moderate mitral regurgitation. Right ventricular systolic pressure of 41 , consistent with a mild pulmonary hypertension. Venous duplex bilateral extremity revealed no evidence of acute DVT. Venous duplex of upper extremity revealed acute DVT left axillary vein. Patient started on heparin drip. CT of the head revealed no acute intracranial pathology. Old left basal ganglia lacunar infarcts noted as well as chronic and age-related changes. Ammonia level was stable. Acute encephalopathy was likely due to hypoglycemia and resolved as blood sugar normalized. Antiquer followed. Patient was on diuresis with close monitoring of volumes and cardiorenal parameters. pro BNP was trending down. Guideline directed medical therapy for congestive heart failure with beta- jose, PRESTON inhibitor and Lasix initiated as per practice assistant. ICD interrogation was done. Antiquer also recommended ischemia work-up if not done previously, can be done later as outpatient. Troponin elevation was minimal: no peak , no susana, likely due to demand. Supplemental oxygen provided and titrated to keep oximetry above 92% ; pulmonary toilet with bronchodilator provided as needed. Patient subsequently started on Eliquis 10 mg twice daily for 10 days and then to change to 5 mg twice daily. Heparin drip was stopped. Cognos Lead followed. Hemoglobin A1c 6.4 at goal. Per archivist , no need for basal insulin. Blood sugar was closely monitored and managed with a sliding scale of insulin only on as-needed basis. Hypoglycemia protocol was in place. No further episodes of hypoglycemia. Patient was provided with low-fat, low-cholesterol, no concentrated sweets diet. Patient educated on compliance with diet and medication. Diet texture provided as per speech therapist recommendation with assistance with meal. Strict aspiration precaution maintained. Home health was arranged . Patient was stable for discharge home. FINAL DIAGNOSES: Acute DVT left axillary vein Hypoglycemia-resolved Acute metabolic encephalopathy ( due to hypoglycemia), -resolved CHF with systolic dysfunction Cardiomyopathy ejection fraction 30 to 35% Abnormal cardiac enzymes Biventricular pacemaker secondary to SSS Diabetes mellitus type 2 Mitral regurgitation Noncompliance with medication DISCHARGE MEDICATIONS: See Medication Reconciliation list. DISCHARGE INSTRUCTIONS: Patient was discharged home with home health services. Follow up with primary care provider in one week. Marichuy Mcdonald NP Mar 23, 2019 09:32
--- NOTE | 2019-03-23 17:47 | Diagnostic Imaging Report ---
APPROVED REPORT CPT Code: 48916 Present Symptoms Shortness of breath <Conclusion> RIGHT UPPER EXTREMITY (Deep venous system): Imaging reveals patency of the internal jugular, subclavian, axillary and brachial veins. Doppler indicates normal spontaneous flow within these venous segments. The cephalic vein is thrombosed. The basilic vein was within normal limits. LEFT UPPER EXTREMITY: Venous imaging reveals acute thrombus in the axillary vein. The remaining segments are within normal limits. Imaging reveals patency of the internal jugular, subclavian and brachial veins. The cephalic and basilic veins are patent. JULIÁN Santos was notified of abnormal results at 1150 hours.
--- NOTE | 2019-03-23 17:49 | Diagnostic Imaging Report ---
APPROVED REPORT CPT Code: 27701 Present Symptoms Comments: BILATERAL LEGS PAIN. <Conclusion> BILATERAL: Imaging reveals a patent deep venous system bilaterally. There is no evidence of thrombus within the femoral, popliteal or tibial segments. The greater saphenous veins are also within normal limits. Doppler indicates normal spontaneous flow within these segments.
--- NOTE | 2019-03-24 13:39 | Cardiology Report ---
APPROVED REPORT EKG Measurement Heart [id number] <Conclusion> Atrioventricular Sequential Pacemaker Abnormal ECG
[2019-03-28] MEDS ORDERED: Eliquis 5mg tablet ORAL SCH (09:00)
== END 2019-03-22 18:51 | disposition home health service (06) | DRG 637 ==
LOC: EDBD 15:47 → EMR 19:02 → EDBEDREQ 19:23 → EDBEDREQSVC 19:23 → 2W 19:48 → EDBEDREQ 20:44 → 2W 03-11 20:30 → 4E 03-17 15:42
DX: E11.649 Type 2 diabetes mellitus with hypoglycemia without coma (principal); G93.41 Metabolic encephalopathy; I50.20 Unspecified systolic (congestive) heart failure; I42.9 Cardiomyopathy, unspecified; I11.0 Hypertensive heart disease with heart failure; I49.5 Sick sinus syndrome; Z95.0 Presence of cardiac pacemaker; E66.9 Obesity, unspecified; Z68.25 Body mass index [BMI] 25.0-25.9, adult; Z91.14 Patient's other noncompliance with medication regimen; I34.0 Nonrheumatic mitral (valve) insufficiency; I82.622 Acute embolism and thrombosis of deep veins of left upper extremity
CPT/HCPCS: 36415; 36600; 70450; 71045; 80048; 80053; 80061; 81003; 82140; 82248; 82550; 82553; 82803; 82962; 83036; 83605; 83690; 83735; 83880; 84100; 84443; 84484; 85025; 85610; 85730; 87040; 93005; 93306; 93970; 94640; 94660; 96361; 96374; 96375; 96376; 99291; G0480; J1815; J7030; J7620